=== PATIENT | female | born 1960 | race Caucasian/White ===

== ENCOUNTER 2018-02-15 08:48 | Emergency (ER) | payer OTHER ==
[2018-02-15] MEDS ORDERED: ONDANSETRON 4 MG/2 ML VIAL ONE (09:27)
[2018-02-15 09:30] LABS: Absolute Lymphocytes (CBC) 0.4 K/uL (0.7-4.9); Absolute Monocytes 0.3 K/uL (0.1-1.3); Absolute Neutrophil 4.8 K/uL (1.8-8.0); Basophils % 0.2 % (0-1.3); Eosinophils % 0.8 % (0-4.4); Hematocrit 41.7 % (36.0-45.0); Lymphocytes % 6.9 % (15.3-44.8); MCH 31.9 pg (27.0-35.0); MCV 94.1 fL (80-100); MPV 8.7 fL (7.6-11.3); Monocytes % 4.6 % (3.3-12.3); RBC Red Blood Cell Count 4.43 M/uL (3.86-4.86)
[2018-02-15 09:47] LABS: Albumin 3.6 g/dL (3.4-5.0); Bilirubin Direct 0.1 mg/dL (0-0.2); Bilirubin Total 0.7 mg/dL (0.2-1.0); Potassium 3.8 mmol/L (3.5-5.1); Protein, Total 6.9 g/dL (6.4-8.2)
[2018-02-15 10:11] LABS: Urine Blood NEGATIVE (NEG); Urine Glucose NEGATIVE (NEG); Urine Protein TRACE (NEG); Urine Specific Gravity 1.025 (1.005-1.030); Urine pH 5.5 (5.0-7.0)
--- NOTE | 2018-02-15 10:55 | RAD REPORT ---
EXAM DESCRIPTION: US - Abdomen Exam Limited - 02/15/2018 9:38 am CLINICAL HISTORY: Abdominal pain COMPARISON: None. FINDINGS: No gallstones, sludge or other abnormalities within the gallbladder lumen. There is no wal l thickening or pericholecystic fluid. No common duct stone or biliary tree dilatation identified. IMPRESSION: Normal gallbladder and biliary tree ultrasound.
--- NOTE | 2018-02-15 10:58 | RAD REPORT ---
EXAM DESCRIPTION: CT - Abdomen Pelvis W Contrast - 02/15/2018 10:41 am CLINICAL HISTORY: Abdominal pain COMPARISON: Ultrasound same date TECHNIQUE: Biphasic, helical CT imaging of the abdomen and pelvis was performed following 100 ml non -ionic IV contrast. Oral contrast was administered. All CT scans are performed using dose optimization technique as appropriate and may include automated exposure control or mA/KV adjustment according to patient size. FINDINGS: No suspicious findings in the lung bases. Very minimal hiatal hernia present. Liver shows a mild diffuse fatty infiltration with no focal liver lesions seen. No capsular nodularit y or other suspicious finding. Spleen and pancreas show no suspicious findings. Gallbladder and bilia ry tree are also without suspicious finding. Symmetric renal function is seen with no hydronephrosis or suspicious renal mass. No pyelonephritis o r acute renal parenchymal process. No urinary bladder abnormality seen. No dilated bowel loops or bowel wall thickening. No appendicitis findings present. Minimal diverticul osis without diverticulitis. No free air, free fluid or inflammatory stranding. No hernia, mass or b ulky lymphadenopathy. No adrenal abnormality. No uterine or right ovary abnormality. Left ovary demon strates a 4 centimeter thin-walled homogeneous cyst. No calcifications, septation or other suspicious characteristic. No suspicious bony findings. IMPRESSION: No acute or emergent CT abdomen or pelvis finding. Fatty infiltration noted in the liver with no focal liver lesion. A 4 centimeter left ovarian or paraovarian cyst is present. There are no suspicious characteristics o ther than size. This can be re-evaluated in 3-4 months to assess for involution or growth.
--- NOTE | 2018-02-15 12:29 | ER ---
Nurse's Notes [facility] Name: Mariah Oswald Age: 57 yrs Sex: Female : 1960 Arrival Date: 02/15/2018 Time: 08:51 Bed 5 Private MD: Zechariah Sher B Diagnosis: Unspecified abdominal pain;Nausea and vomiting Presentation: 02/15 08:58 Presenting complaint: Patient states: abd bloating, vomiting and achy joints that began ss after eating at a [employer] yesterday. Transition of care: patient was not received from another setting of care. Onset of symptoms was February 14, 2018. Risk Assessment: Do you want to hurt yourself or someone else? Patient reports no desire to harm self or others. Initial Sepsis Screen: Does the patient meet any 2 criteria? No. Patient's initial sepsis screen is negative. Does the patient have a suspected source of infection? No. Patient's initial sepsis screen is negative. Care prior to arrival: None. 08:58 Method Of Arrival: Ambulatory ss 08:58 Acuity: YVONNE 3 ss Historical: - Allergies: 09:00 Sulfa (Sulfonamide Antibiotics); ss - PMHx: 09:00 GERD; ss - PSHx: 09:00 Hernia repair; ss - Immunization history:: Adult Immunizations up to date. - Social history:: Smoking status: Patient/guardian denies using tobacco. - Family history:: not pertinent. - Ebola Screening: : Patient denies exposure to infectious person Patient denies travel to an Ebola-affected area in the 21 days before illness onset. - Hospitalizations: : No recent hospitalization is reported. Screenin:30 Abuse screen: Denies threats or abuse. Denies injuries from another. Nutritional hb screening: No deficits noted. Tuberculosis screening: No symptoms or risk factors identified. Fall Risk None identified. Assessment: 09:14 Reassessment: Pt ambulated to restroom with steady gait to give urine specimen. ss 10:07 Reassessment: Patient appears in no apparent distress at this time. Patient and/or hb family updated on plan of care and expected duration. Pain level reassessed. Patient is alert, oriented x 3, equal unlabored respirations, skin warm/dry/pink. 11:00 Reassessment: Patient appears in no apparent distress at this time. No changes from hb previously documented assessment. Patient and/or family updated on plan of care and expected duration. Pain level reassessed. Patient is alert, oriented x 3, equal unlabored respirations, skin warm/dry/pink. Vital Signs: 09:07 BP 141 / 91; Pulse 96; Resp 16; Temp 98.8(O); Pulse Ox 97% on R/A; Weight 73.48 kg; Height 5 ft. 3 in. (160.02 cm); Pain 5/10; 10:00 BP 151 / 68; Pulse 54; Resp 16; Pulse Ox 100% on R/A; Pain 0/10; hb 11:34 BP 133 / 86; Pulse 67; Resp 15; Pulse Ox 97% on R/A; hb 09:07 Body Mass Index 28.70 (73.48 kg, 160.02 cm) ED Course: 08:51 Patient arrived in ED. sb2 08:51 Zechariah Sher MD is Private Physician. sb2 08:53 Denis Pichardo MD is Attending Physician. rn 08:59 Triage completed. 09:00 Arm band placed on right ankle. 09:21 Initial lab(s) drawn, by ct, sent to lab. Flu and/or RSV swab sent to lab. Inserted dh3 saline lock: 20 gauge in right antecubital area, using aseptic technique. Blood collected. 09:30 Patient has correct armband on for positive identification. Placed in gown. Bed in low hb position. Call light in reach. Side rails up X 1. 10:02 Patient taken to ultrasound. via wheelchair. aa4 10:02 Ultrasound completed. Patient moved back from ultrasound. aa4 10:[address] mw3 10:42 CT completed. Patient tolerated procedure well. Patient moved back from CT. mw3 Administered Medications: 09:40 Drug: Zofran 4 mg Route: IVP; Site: right antecubital; hb Outcome: 12:29 Discharge ordered by . rn 12:56 Patient left the ED. eb Signatures: Karen Stallings aa4 Denis Pichardo MD MD rn Smirch, Shelby, RN RN Debi Henriquez RN RN Yoly Kingsley 3 Kenisha Frost 2 Jaylyn Van Phyllis Hamlin mw3
--- NOTE | 2018-02-15 12:30 | EDPHYS ---
Physician Documentation [facility] Name: Mariah Oswald Age: 57 yrs Sex: Female : 1960 Arrival Date: 02/15/2018 Time: 08:51 Bed 5 Private MD: Zechariah Sher B ED Physician Denis Pichardo HPI: 02/15 08:59 This 57 yrs old Female presents to ER via Unassigned with complaints of Abd rn Pain > 50 y/o, Vomiting. 08:59 The patient presents to the emergency department with nausea, vomiting, abdominal pain. rn Onset: The symptoms/episode began/occurred yesterday. Possible causes: unknown. The symptoms are aggravated by nothing. The symptoms are alleviated by nothing. Severity of symptoms: At their worst the symptoms were moderate in the emergency department the symptoms are unchanged. The patient has not experienced similar symptoms in the past. Reports at work began hurting yesterday afternoon, + mid abd pain, assoc with nausea, vomiting, and decreased appetite, + low grade fever as well as joint pains and fatigue. NO diarrhea, + abd bloating and constipation.. Historical: - Allergies: 09:00 Sulfa (Sulfonamide Antibiotics); ss - PMHx: 09:00 GERD; ss - PSHx: 09:00 Hernia repair; ss - Immunization history:: Adult Immunizations up to date. - Social history:: Smoking status: Patient/guardian denies using tobacco. - Family history:: not pertinent. - Ebola Screening: : Patient denies exposure to infectious person Patient denies travel to an Ebola-affected area in the 21 days before illness onset. - Hospitalizations: : No recent hospitalization is reported. ROS: 08:59 Constitutional: Negative for chills, and weight loss, Eyes: Negative for injury, pain, rn redness, and discharge, Neck: Negative for injury, pain, and swelling, Cardiovascular: Negative for chest pain, palpitations, and edema, Respiratory: Negative for shortness of breath, cough, wheezing, and pleuritic chest pain, Abdomen/GI: Negative for diarrhea Back: Negative for injury and pain, MS/Extremity: Negative for injury and deformity, Skin: Negative for injury, rash, and discoloration, Neuro: Negative for headache, numbness, tingling, and seizure. Exam: 08:59 Constitutional: This is a well developed, well nourished patient who is awake, alert, rn and in no acute distress. Head/Face: Normocephalic, atraumatic. Eyes: Pupils equal round and reactive to light, extra-ocular motions intact. ENT: MMM Abdomen/GI: soft, mild periumbilical tenderness, no rebound, no masses Skin: Warm, dry MS/ Extremity: Pulses equal, no cyanosis. Neurovascular intact. Full, normal range of motion. Equal circumference. Neuro: Awake and alert, GCS 15, oriented to person, place, time, and situation. Cranial nerves II-XII grossly intact. Motor strength 5/5 in all extremities. Sensory grossly intact. Cerebellar exam normal. Normal gait. Vital Signs: 09:07 BP 141 / 91; Pulse 96; Resp 16; Temp 98.8(O); Pulse Ox 97% on R/A; Weight 73.48 kg; ss Height 5 ft. 3 in. (160.02 cm); Pain 5/10; 10:00 BP 151 / 68; Pulse 54; Resp 16; Pulse Ox 100% on R/A; Pain 0/10; hb 11:34 BP 133 / 86; Pulse 67; Resp 15; Pulse Ox 97% on R/A; hb 09:07 Body Mass Index 28.70 (73.48 kg, 160.02 cm) ss MDM: 08:53 Patient medically screened. rn 12:28 Differential diagnosis: Nonspecific abd pain, gastritis, pancreatitis, appendicitis, rn diverticulitis, viral gastroenteritis, gastroenteritis. Differential diagnosis: cholecystitis. Data reviewed: vital signs, nurses notes. Data reviewed: lab test result(s), radiologic studies, CT scan, ultrasound, and as a result, I will discharge patient. Counseling: I had a detailed discussion with the patient and/or guardian regarding: the historical points, exam findings, and any diagnostic results supporting the discharge/admit diagnosis, lab results, radiology results, the need for outpatient follow up, to return to the emergency department if symptoms worsen or persist or if there are any questions or concerns that arise at home. Response to treatment: the patient's symptoms have markedly improved after treatment, and as a result, I will discharge patient. Special discussion: I discussed with the patient/guardian in detail that at this point there is no indication for admission to the hospital. It is understood, however, that if the symptoms persist or worsen the patient needs to return immediately for re-evaluation. 02/15 08:58 Order name: Basic Metabolic Panel; Complete Time: 12:23 rn 02/15 08:58 Order name: CBC with Diff; Complete Time: 12:23 rn 02/15 08:58 Order name: Hepatic Function; Complete Time: 12:23 rn 02/15 08:58 Order name: Lipase; Complete Time: 12:23 rn 02/15 08:58 Order name: Flu; Complete Time: 12:23 rn 02/15 09:48 Order name: Urine Dipstick--Ancillary (enter results) eb 02/15 08:58 Order name: CT Abd/Pelvis - W/Contrast rn 02/15 08:58 Order name: US Abdomen Limited rn 02/15 10:11 Order name: Urine Dipstick-Ancillary; Complete Time: 12:23 EDIL 02/15 10:56 Order name: US; Complete Time: 12:23 EDMS 02/15 11:00 Order name: CT; Complete Time: 12:23 EDIL 02/15 12:12 Order name: Urine Microscopic Only [facility] 02/15 12:35 Order name: Urine Microscopic Only EDIL 02/15 08:58 Order name: IV Saline Lock; Complete Time: 09:24 rn 02/15 08:58 Order name: Labs collected and sent; Complete Time: 09:24 rn Administered Medications: 09:40 Drug: Zofran 4 mg Route: IVP; Site: right antecubital; hb Disposition: 02/15/18 12:29 Discharged to Home. Impression: Unspecified abdominal pain, Nausea and vomiting. - Condition is Stable. - Discharge Instructions: Abdominal Pain, Adult, Nausea and Vomiting, Adult. - Prescriptions for Zofran ODT 4 mg Oral tablet,disintegrating - place 1 tablet by TRANSLINGUAL route every 8-10 hours As needed; 20 tablet. - Medication Reconciliation Form, Thank You Letter, Antibiotic Education, Prescription Opioid Use form. - Follow up: Private Physician; When: As needed; Reason: Recheck today's complaints, Re-evaluation by your physician. - Problem is new. - Symptoms have improved. Signatures: Dispatcher [employer] EDMS Denis Pichardo MD MD rn Smirch, Shelby, RN RN Debi Henriquez RN RN Van, Jaylyn eb Corrections: (The following items were deleted from the chart) 12:56 12:29 02/15/2018 12:29 Discharged to Home. Impression: Unspecified abdominal pain; eb Nausea and vomiting. Condition is Stable. Forms are Medication Reconciliation Form, Thank You Letter, Antibiotic Education, Prescription Opioid Use. Follow up: Private Physician; When: As needed; Reason: Recheck today's complaints, Re-evaluation by your physician. Problem is new. Symptoms have improved. rn
[2018-02-15 12:35] LABS: Urine Amorphous Sediment 2+ /HPF (NONE SEEN); Urine Bacteria 20-50 /HPF (<20); Urine Culture Reflex Order REFLEXED; Urine RBC <5 /HPF (NONE SEEN)
== END 2018-02-15 12:56 | disposition home or self-care (01) ==
LOC: ER 08:48
DX: R11.2 Nausea with vomiting, unspecified (principal); Z88.2 Allergy status to sulfonamides
CPT/HCPCS: 36415; 74177; 76705; 80048; 80076; 81003; 81015; 83690; 85025; 87086; 87088; 87804; J2405; Q9967

== ENCOUNTER 2023-08-25 18:39 | Emergency (ER) | payer OTHER ==
--- OUTSIDE RECORDS SUMMARY | 2023-08-25 18:44 | XMS REPORT | Continuity of Care Document ---
Author Name Unknown Address [address] [place] [address] [facility] Address [address] [place] [address] Care Team Providers Care Program Clinician Name Role Phone Dora Vides NP Primary Care Physician [phone] Kamaljit Delgado Attending Clinician Unavailable Melodie Boucher Attending Clinician Unavailable Doctor Unassigned, Cordes Lakes Attending Clinician U navailable TOMMY RODRIGUEZ Attending Clinician Unavailable Tommy Rodriguez MD Attending Clinician [phone] Jarod JUSTICE Attending Clinician Unavailable Jarod Tinajero Attending Clinician [phone] MELODIE BOUCHER Attending Clinician UnavailZechariah Gannon Admitting Clinician Unavailable Physician, No Primary or Family Admitting Clinic cam Unavailable TOMMY RODRIGUEZ Admitting Clinician Unavailable Jarod JUSTICE Admitting Clinician Unavailable Payers Payer Name Policy Type Policy Number Effective Date Expirati on Date Source Problems Condition Name Condition Details Condition Category Status Onset Date Resolution Date Last Treatment Date Treating Clinician Comments Source Syncope and collapse Syncope and collapse Disease Active 2022-03 00:00: 00 [facility] Senile osteoporos is Senile osteoporos is Disease Active 12-05 00:00: 00 [facility] Back pain Back pain Disease Active 12-05 00:00: 00 [facility] Personal history of other diseases of digestive system Personal history of other diseases of digestive system Disease Active 12-05 00:00: 00 [facility] Generalize d osteoarthr osis of hand Generalize d osteoarthr osis of hand Disease Active 12-05 00:00: 00 Overview: Formattin g of this note might be different from the original. ICD10 Diagnosis Term [employer] [facility] Allergies, Adverse Reactions, Alerts Allergy Name Allergy Type Status Severity Reaction(s) Onset Date Inactive Date Treating Clinician Comments Source TAPE (SURGICA L) DA Active MO BLISTERS 08-20 00:00: 00 [facility] Sulfa (Sulfona mide Antibiot ics) DA Active MO 2018-03 00:00: 00 [facility] Sulfa (Sulfona mide Antibiot ics) DA Active MO RASH 2018-03 00:00: 00 [facility] SULFA (SULFONA MIDE ANTIBIOT ICS) Drug Class Active Rash 12-05 00:00: 00 [facility] Sulfa (Sulfona mide Antibiot ics) Propensi ty to adverse reaction s Active Rash 12-05 00:00: 00 [facility] Social History Social Habit Start Date Stop Date Quantity Comments Source [facility] of Social function 2023-01-18 00:00:00 2023-01-18 00:00:00 [facility] Tobacco Comment 2023-01-18 00:00:00 2023-01-18 00:00:00 1 pack per week [facility] Cigarettes smoked current (pack per day) - Reported 2023-01-18 00:00:00 2023-01-18 00:00:00 [facility] Cigarette pack-years 2023-01-18 00:00:00 2023-01-18 00:00:00 [facility] Tobacco use and exposure 2023-01-18 00:00:00 2023-01-18 00:00:00 Smokeless tobacco non-user [facility] Alcohol intake 2023-01-18 00:00:00 2023-01-18 00:00:00 Current drinker of alcohol (finding) [facility] History of tobacco use 2012-08-04 00:00:00 Cigarette Smoker [facility] Sex Ass[birth year] At 1960 00:00:00 1960 00:00:00 [facility] Smoking Status Start Date Stop Date Source Ex-smoker 2023-01-18 00:00:00 2023-01-18 [facility] Ordered Medication Name Filled Medication Name Start Date Stop Date Current Medication? Ordering Clinician Indication Dosage Frequency Signature (SIG) Comments Components Source sulfur hexafluorid e microsphr (LUMASON) injection 5 mL 2022-03 17:30: 00 02-11 17:18 :00 No [id number] 5mL 5 mL, Intravenou s, ONCE, 1 dose, On Tue02/11/23 at 1130, Routine
member of the legislative council approving Restricted medication : REJI MONAHAN [facility] ketorolac (TORADOL) injection 15 mg 2022-03 01:15: 00 01-18 00:13 :00 No 15mg 15 mg, Slow IV Push, ONCE, 1 dose, On Tue01/17/23 at 1915, ANTONIO [facility] ipratropium -albuteroL (DUONEB) 0.5 mg-3 mg(2.5 mg base)/3 mL nebulizer solution 3 mL 2022-03 00:15: 00 01-17 23:18 :00 No 3mL 3 mL, Inhalation , ONCE, 1 dose, On Tue01/17/23 at 1815, Routine [facility] azithromyci n (ZITHROMAX) tablet 500 mg 2022-03 23:15: 00 01-17 23:19 :00 No 500mg 500 mg, Oral, ONCE, 1 dose, On Tue01/17/23 at 1715, ANTONIO
Re ason for Anti-Infec tive: Documented Infection< br>Documen isa Infection Site: Respirator y
Durat ion of Therapy: Other (see Comments) [facility] cefTRIAXone (ROCEPHIN) 1,000 mg in NaCl 0.9% (NS) 100 mL MINI-BAG 2022-03 23:15: 00 01-17 23:50 :00 No 1000mg 1,000 mg, IV Piggyback, ONCE, 1 dose, On Tue01/17/23 at 1715, Administer over 30 Minutes, 100 mL
Reas on for Anti-Infec tive: Documented Infection< br>Documen isa Infection Site: Respirator y
Durat ion of Therapy: Other (see Comments) [facility] NaCl 0.9% (NS) bolus infusion 1,000 mL 2022-03 22:30: 00 01-17 23:19 :00 No 1000mL at 999 mL/hr, 1,000 mL, IV Infusion, ONCE, 1 dose, On Tue01/17/23 at 1630, STAT [facility] azithromyci n (ZITHROMAX Z-VAN) 250 mg tablet 2022-03 00:00: 00 Yes [id number] 250mg Take 1 tablet by mouth SEE-INSTRU CTIONS. Take 500 mg day 1, then 250 mg days 2 to 5. [facility] benzonatate 200 mg capsule 2022-03 00:00: 00 Yes [id number] 200mg Take 1 capsule by mouth 3 (three) times daily as needed for Cough for up to 20 doses. [facility] VITAMIN D 2,000 UNIT ORAL CAP 2012-03 09:15: 46 Yes daily. [facility] ascorbic acid (VITAMIN C) 500 mg tablet 2012-03 09:15: 46 Yes 500mg Take 500 mg by mouth daily. [facility] Vital Signs Vital Name Observation Time Observation Value Comments S linda Systolic blood pressure 2023-01-18 20:17:00 126 mm[Hg] [facility] Diastolic blood pressure 2023-01-18 20:17:00 84 mm[Hg] [facility] Heart rate 2023-01-18 20:17:00 89 /min [facility] Respiratory rate 2023-01-18 20:10:00 18 /min [facility] Body height 2023-01-18 20:10:00 160 cm [facility] Body weight 2023-01-18 20:10:00 69.446 kg [facility] BMI 2023-01-18 20:10:00 27.12 kg/m2 [facility] Oxygen saturation in Arterial blood by Pulse oximetry 2023-01-18 20:10:00 96 /min [facility] Systolic blood pressure 2023-01-18 02:07:00 137 mm[Hg] [facility] Diastolic blood pressure 2023-01-18 02:07:00 80 mm[Hg] [facility] Heart rate 2023-01-18 02:07:00 84 /min [facility] Respiratory rate 2023-01-18 02:07:00 20 /min [facility] Oxygen saturation in Arterial blood by Pulse oximetry 2023-01-18 02:07:00 99 /min [facility] Body temperature 2023-01-18 00:21:00 37.28 Makayla [facility] Body height 2023-01-17 21:09:00 160 cm [facility] Body weight 2023-01-17 21:09:00 68.493 kg [facility] BMI 2023-01-17 21:09:00 26.75 kg/m2 [facility] Procedures Procedure Date / Time Performed Performing Clinician Source TRANSTHORACIC ECHO (TTE) COMPLETE W/ CONTRAST 2023-02-11 17:35:00 Tommy Rodriguez [facility] D-DIMER 2023-01-18 00:08:00 Jarod Justice [facility] HB ECG ROUTINE & RHYTHM STRIP 2023-01-17 22:12:32 Jarod Justice [facility] MAGNESIUM 2023-01-17 21:45:00 Jarod Justice [facility] TROPONIN I 2023-01-17 21:45:00 Jarod Justice [facility] COMP. METABOLIC PANEL (10793) 2023-01-17 21:45:00 Jarod Justice [facility] CBC WITH DIFF 2023-01-17 21:45:00 Jarod Justice [facility] URINALYSIS 2023-01-17 21:45:00 Jarod Justice [facility] RAPID INFLUENZA A/B 2023-01-17 21:45:00 Jarod Justice [facility] N-TERMINAL PRO-BNP 2023-01-17 21:45:00 Jarod Justice [facility] COVID-19 (ID NOW RAPID TESTING) 2023-01-17 21:45:00 Jarod Justice [facility] XR CHEST 1 VW 2023-01-17 21:31:55 Jarod Justice [facility] Encounters Start Date/Time End Date/Time Encounter Type Admission Type Attending Clinicians Care Facility Care Department Encounter ID Source 2019-08-23 10:00:00 Inpatient Kamaljit Becerra [facility] DAYS [id number] [facility] 2019-08-21 11:30:00 Inpatient Kamaljit Becerra [facility] OUTD [id number] [facility] 2019-06-13 00:03:00 Inpatient Melodie Gonzalez [facility] PHYT [id number] [facility] 2019-05-15 14:51:00 Inpatient Melodie Gonzalez [facility] PH[facility]T [id number] [facility] 2023-03-31 00:00:00 2023-03-31 00:00:00 Patient Secure Msg Doctor Unassigned, Cordes Lakes [facility] [id number] [facility] 2023-02-11 10:51:29 2023-02-11 23:59:00 [facility] [id number] [facility] 2023-02-11 10:51:29 2023-02-11 23:59:00 Hospital Encounter Ila [facility] [id number] [facility] 2023-01-18 14:00:00 2023-01-18 14:30:00 Office Visit Ila [facility] [id number] [facility] 2023-01-18 14:00:00 2023-01-18 14:00:00 Outpatient [facility] [id number] [facility] 2023-01-17 15:00:00 2023-01-17 20:20:00 Emergency X Jarod [email or web address] ERT [id number] [facility] 2023-01-17 15:00:00 2023-01-17 20:20:00 Emergency Jarod Justice [facility] 1..840.114 [id number] [id number] [id number] [facility] 2019-11-29 12:00:00 2019-11-29 12:00:00 Outpatient MELODIE GONZALEZ [facility] [id number] [facility] 2019-08-24 09:15:00 2019-08-24 09:15:00 Outpatient Kamaljit Delgado [facility] [id number] [facility] 2019-08-21 12:22:00 2019-08-21 12:22:00 Outpatient Kamaljit Delgado [facility] [id number] [facility] Results Test Description Test Time Test Comments Results Result Co mments Source [id number] 01:18:30* Test Item Value Reference Range Interpretation Comments D-DIMER (test code = 8801213877) 0.41 See_Comment H [Automated message] The system which generated this result transmitted reference range: <0.41 ?g/mL (FEU). The reference range was not used to interpret this result as normal/abnormal. KIRILL (test code = KIRILL) This test may be used in conjunction with a clinical pretest probability (PTP) assessment model to exclude venous thromboembolism (VTE) in patients suspected of deep venous thrombosis (DVT) and pulmonary embolism (PE) A D-Dimer value less than 0.50 ?g/ml (FEU) has a negative predicative value of 96 to 100% (95% CI)and 97 to 100% (95% CI) as an aid in the diagnosis of deep vein thrombosis (DVT) and pulmonary embolism when there is low or moderate pretest probability of PE or DVT. D-Dimer values are expressed in initial fibrinogen equivalent units (FEU)" The assay results should be used with other information, including the clinical context, in forming a diagnosis. Lab Interpretation (test code = 90535-5) Abnormal [facility] [id number] 22:55:29* Test Item Value Reference Range Interpretation Comme nts TROPONIN I (test code = 0608912452) 0.000 ng/mL <=0.034 KIRILL (test code = KIRILL) Reference (Normal) Range (defined by the 99th percentile reference limit): <= 0.034 ng/mL Note: Cardiac troponin begins to rise 3-4 hours after the onset of ischemia. Repeat in 4-6 hours if the sample was drawn within 3-4 hours of the onset of the symptom and found normal. Diagnosis of myocardial injury is made with acute changes in cTn concentrations with at least one serial sample above the 99th percentile upper reference limit (URL), taken together with the patient's clinical presentation. Biotin has been reported to cause a negative bias, interpret results relative to patient's use of biotin. Lab Interpretation (test code = 38599-5) Normal [facility] [id number] 22:53:12* Test Item Value Reference Range Interpretation Comme nts NT-proBNP (test code = 27212-2) 39 pg/mL <=125 Lab Interpretation (test cod e = 82204-0) Normal [facility] MET[facility]OLIC PANEL (79184)2023-01-17 22:44:30* Test Item Value Reference Range Interpretation Comme nts NA (test code = 4369471551) 140 mmol/L 135-145 K (test code = 8003911048) 3.8 mmol/L 3.5-5.0 CL (test code = 8699895763) 104 mmol/L 98-108 CO2 TOTAL (test code = 1255067309) 22 mmol/L 23-31 L AGAP (test code = 0616666280) 14 2-16 BUN (test code = 9179785222) 15 mg/dL 7-23 GLUCOSE (test code = 2939494921) 109 mg/dL 70-110 CREATININE (test code = 9091003942) 0.95 mg/dL 0.50-1.04 TOTAL BILI (test code = 1836620768) 0.8 mg/dL 0.1-1.1 CALCIUM (test code = 1385770417) 9.2 mg/dL 8.6-10.6 T PROTEIN (test code = 5404486156) 7.8 g/dL 6.3-8.2 ALBUMIN (test code = 7917235245) 4.6 g/dL 3.5-5.0 ALK PHOS (test code = 0634714019) 70 U/L 34-122 ALTv (test code = 1742-6) 25 U/L 5-35 AST(SGOT) (test code = 1594255487) 23 U/L 13-40 eGFR (test code = 58734-1) 67.0 mL/min/1.73m2 CKD-EPI eGFR (2020). Assuming creatinine has been stable day-to-day for at least three months, the eGFR indicates Category G2 (60 - 89 mL/min/1.73 m2) Lab Interpretation (test code = 53953-9) Abnormal [facility]-06 22:44:30* Test Item Value Reference Range Interpretation Comme nts MAGNESIUM (test code = 4230729201) 2.0 mg/dL 1.7-2.4 Lab Interpretation (test cod e = 51095-0) Normal [facility] WITH [id number] 22:34:08* Test Item Value Reference Range Interpretation Comme nts WBC (test code = 6690-2) 10.48 See_Comment [Automated messa ge] The system which generated this result transmitted reference range: 4.30 - 11.10 10*3/?L. The reference range was not used to interpret this result as normal/abnormal. RBC (test code = 789-8) 4.57 See_Comment [Automated messa ge] The system which generated this result transmitted reference range: 3.93 - 5.25 10*6/?L. The reference range was not used to interpret this result as normal/abnormal. HGB (test code = 718-7) 14.6 g/dL 11.6-15.0 HCT (test code = 4544-3) 43.3 % 35.7-45.2 MCV (test code = 787-2) 94.7 fL 80.6-95.5 MCH (test code = 785-6) 31.9 pg 25.9-32.8 MCHC (test code = 786-4) 33.7 g/dL 31.6-35.1 RDW-SD (test code = 45131-1) 43.8 fL 39.0-49.9 RDW-CV (test code = 788-0) 12.6 % 12.0-15.5 PLT (test code = 777-3) 220 See_Comment [Automated messa ge] The system which generated this result transmitted reference range: 166 - 358 10*3/?L. The reference range was not used to interpret this result as normal/abnormal. MPV (test code = 68837-5) 10.8 fL 9.5-12.9 NRBC/100 WBC (test code = 9339438839) 0.0 See_Comment [Automated [employer] ssage] The system which generated this result transmitted reference range: 0.0 - 10.0 /100 WBCs. The reference range was not used to interpret this result as normal/abnormal. NRBC x10^3 (test code = 7494468610) See_Comment [Automated messa ge] The system which generated this result transmitted reference range: 10*3/?L. The reference range was not used to interpret this result as normal/abnormal. GRAN MAT (NEUT) % (test code = 770-8) 87.8 % IMM GRAN % (test code = 0489495703) 0.40 % LYMPH % (test code = 736-9) 5.8 % MONO % (test code = 5905-5) 4.2 % EOS % (test code = 713-8) 1.6 % BASO % (test code = 706-2) 0.2 % GRAN MAT x10^3(ANC) (test code = 9321085396) 9.20 10*3/uL 1.88-7.09 H IMM GRAN x10^3 (test code = 7792318487) 0.04 10*3/uL 0.00-0.06 LYMPH x10^3 (test code = 731-0) 0.61 10*3/uL 1.32-3.29 L MONO x10^3 (test code = 742-7) 0.44 10*3/uL 0.33-0.92 EOS x10^3 (test code = 711-2) 0.17 10*3/uL 0.03-0.39 BASO x10^3 (test code = 704-7) 0.01-0.07 Lab Interpretation (test code = 05372-9) Abnormal [facility],[id number] 11:42:00 RUN DATE: 08/29/19 [facility] PAGE 1 RUN TIME: 1239 Specimen Inquiry RUN USER: INTERFACE -------- ----PATIENT: ELIAN AMARO LOC: BARB U #: [id number] AGE/SX: 59/F ROOM: RE08/24/19REG DR:Kamaljit Delgado MD : 56 BED: DIS: STATUS: [facility] TLOC: SPEC #: [id number] RECD: 08/24/19 STATUS: [facility] #: [id number] DAMIAN: 08/24/19- SUBM DR: Kamaljit Delgado MD ENTERED: 08/24/19 SP TYPE: MAYO MCFARLAND DR: ORDERED: LEVEL IV/2 CODES: [id number] - BREAST, NOS PROCEDURES: LEVEL IV (Incomplete) TISSUES: BREAST, NOS - RIGHT AND LEFT BREAST TISSUE CLINICAL HISTORY 59 year old, RIGHT breast cancer (kr) FINAL DIAGNOSIS RIGHT breast tissue, plastic repair: - dermal fibrosis and suture granuloma, consistent with scar - no breast parenchyma or malignancy identified LEFT breast tissue, plasticrepair: - dermal fibrosis and suture granuloma, consistent with scar - no breast parenchyma or malignancy identified CPT code(s): 09486 x2 ls/wpd GROSS DESCRIPTION ANATOMIC SOURCE OF TISSUE (per Requisition): 1. RIGHT breast tissue 2. LEFT breast tissue Each specimen is labeled with the patient's name and medical record number. Specimen #1 is designated "RIGHT breast tissue" and consists of a 13.0 x 2.1 x 1.0 cm portion of orantes-pink skin. The epidermal surface is wrinkled with blue ink. One half of the specimen is inked blue. One half of the specimen is inked black. Asset Protection Manager sections are submitted labeled A1 and A2. Specimen #2 is designated "LEFT breast tissue" and consists of a 7.3 x 2.2 x 0.8 cm orantes-pink portion of skin. The epidermal surface is wrinkled. One half of the specimenis inked blue. One half of the specimen is inked black. Asset Protection Manager sections are submitted labeled B1 and B2. nico 08/24/19 CONTINUED ON NEXT PAGE RUN DATE: 08/29/19 [facility] PAGE 2 RUN TIME: 1239 Specimen Inquiry RUN USER: INTERFACE SPEC #: [id number] PATIENT: LEIAN AMARO #[id number] (Continued) Signed Grace Corrales MD 08/27/19 1142 END OF REPORT Novel Coronavirus 2019 [id number] 20:07:00* Test Item Value Reference Range Interpretation Comme nts Novel Coronavirus 2019 Inh se (test code = COVNONPUI) Negative Negative Novel Coronavirus 2019 [id number] 20:07:00* Test Item Value Reference Range Interpretation Comme [facility] Novel Coronavirus 2019 Inh se (test code = COVNONPUI) Negative Negative CHEMISTRY 7 [id number] 12:25:00* Test Item Value Reference Range Interpretation Comme nts SODIUM (test code = NA) 140 mEq/L 135-145 N POTASSIUM (test code = K) 4.3 mEq/L 3.5-5.0 N CHLORIDE (test code = CL) 103 mEq/L 100-115 N CARBON DIOXIDE (test code = CO2) 32 mEq/L 22-31 H ANION GAP (test code = GAP) 9.70 10-20 L GLUCOSE (test code = GLU) 79 mg/dL 65-110 N BLOOD UREA NITROGEN (test co de = BUN) 22 mg/dL 7-18 H GLOMERULAR FILTRATION RATE ( test code = GFR) 50 ml/min >60 L CREATININE (test code = CREAT) 1.1 mg/dL 0.5-1.0 H CALCIUM (test code = CA) 9.3 mg/dL 8.4-10.2 N CBC W/AUTO [id number] 12:09:00* Test Item Value Reference Range Interpretation Comme nts WHITE BLOOD CELL (test code = WBC) 7.5 K/mm3 6.6-12.1 N RED BLOOD CELL (test code = RBC) 4.39 M/mm3 3.45-5.01 N HEMOGLOBIN (test code = HGB) 13.3 g/dL 10.7-13.9 N HEMATOCRIT (test code = HCT) 41.6 % 32.1-42.1 N MEAN CELL VOLUME (test code = MCV) 95 fL 84.1-94.8 H MEAN CELL HGB (test code = MCH) 30.3 pg 27-35 N MEAN CELL HGB CONCETRATION ( test code = MCHC) 32.0 gm/dL 32.2-34.1 L RED CELL DISTRIBUTION WIDTH (test code = RDW) 13.8 % 12.4-16.5 N PLATELET COUNT (test code = PLT) 266 K/mm3 133-385 N MEAN PLATELET VOLUME (test c ode = MPV) 10.6 fl 9.1-12.7 N NEUTROPHIL % (test code = NT%) 59.5 % 56.5-79.4 N LYMPHOCYTE % (test code = LY%) 30.5 % 14.3-34.3 N MONOCYTE % (test code = MO%) 6.8 % 5.1-10.4 N EOSINOPHIL % (test code = EO%) 2.0 % 0.1-3.0 N BASOPHIL % (test code = BA%) 0.5 % 0.1-1.0 N NEUTROPHIL # (test code = NT#) 4.5 K/mm3 LYMPHOCYTE # (test code = LY#) 2.3 K/mm3 MONOCYTE # (test code = MO#) 0.5 K/mm3 EOSINOPHIL # (test code = EO#) 0.15 K/mm3 BASOPHIL # (test code = BA#) 0.0 K/mm3 RBC MORPHOLOGY REQUIRED (neeraj t code = RBCM) NORMAL NORMAL PLATELET MORPHOLOGY REQUIRED (test code = PLTMR) NORMAL NORMAL BREAST,[id number] 11:28:00 RUN DATE: 03/13/19 [facility] PAGE 1 RUN TIME: 1146 Specimen Inquiry RUN USER: INTERFACE -------- ----PATIENT: ELIAN AMARO LOC: PAM #: [id number] AGE/SX: 58/F ROOM: [facility] RE03/05/19REG DR: Kamaljit Delgado MD : 56 BED: A DIS: 03/09/19 STATUS: DIS IN TLOC: SPEC #: [id number] RECD: 03/05/19 STATUS: [facility] #: [id number] DAMIAN: 03/05/19- [facility] DR: Melodie Boucher MD ENTERED: 03/05/19 SP TYPE: KAMILAX BARTOLO DR: ORDERED: LEVEL IV/6, FROZEN SECTION, FROZEN ADD/2 CODES: [id number] - BREAST, NOS PROCEDURES: LEVEL IV (Incomplete) FROZEN SECTION (Incomplete) FROZEN ADD (Incomplete) TISSUES: BREAST, NOS - RIGHT NIPPLE MARGIN, DOUBLE MASTECTOMY WITH LYMPH NODES CLINICAL HISTORY 58year old, ductal carcinoma in-situ, history of breast cancer (kr) FINAL DIAGNOSIS RIGHT nipple margin, excision: - benign papilloma and duct epithelial hyperplasia of the usual type - true margin - no tumor identified RIGHT breast, mastectomy: - ductal carcinoma in-situ, intermediate to high nuclear grade, solid and cribriform types, associated with comedo necrosis and several coarse microcalcifications - several foci of microinvasive carcinoma identified, Coco grade 2 - margins - no tumor identified [microinvasive carcinoma is 9.0 mm from the nearest (inferior/superficial) resection margin; ductal carcinoma in-situ is 3.0 mm from the nearest (inferior/superficial) resection margin] - lymphvascular invasion - not identified - additional foci of atypical ductal hyperplasia present in random quadrants along with numerous radial sclerosing lesions and sclerosing papillary lesions duct epithelial hyperplasia - fibrocystic change including cyst formation, apocrine metaplasia, and duct epithelial hyperplasia of the usual type - one intramammary lymph node - no tumor identified RIGHT breast lateral margin, excision: - benign breast parenchyma, no tumor identified RIGHT sentinel lymph nodes, dissection: - 5 lymph nodes, no tumor identified LEFT breast, mastectomy: CONTINUED ONNEXT PAGE RUN DATE: 03/13/19 [facility] PAGE 2 RUN TIME: 1146 Specimen Inquiry RUN USER: INTERFACE SPEC #: [id number] PATIENT: ELIAN AMARO #[id number] (Continued) FINAL DIAGNOSIS (Continued) - fibrocystic change including cyst formation, apocrine metaplasia, and duct epithelial hyperplasia of the usual type - nipple area - no pathologic alterations, no tumor identified - no atypical hyperplasia or malignancy identified LEFT breast superior margin, excision: - benign breast parenchyma, no tumor identified COMMENT: Permanent sections correlate with frozen section diagnosis. The following technical components were performed at [facility], [address] [place] [address], [address], [place] [address]. The interpretation is provided by [facility], [facility], [place] [address]. Positive and/or negative controls received from [facility] stained appropriately. RESULTS: SMM-HC (blocks A5, A6, and A7) - absent in microinvasive carcinoma areas (A5). P63 - (blocks A5, A6, and A7) - absent in microinvasive carcinoma areas (A5). Pancytokeratin (blocks A15, C1, C2, C3, C4 and C5) - negative for metastatic carcinoma. Prognostic markers - (block A4) - see below The following results are received from [facility], [place], [place] on March 11, 2019. BODY SITE: RIGHT breast - [id number] PROGNOSTIC / PREDICTIVE MARKERS Histology Image Analysis, Global IHC Quantitative Breast Panel ER: POSITIVE Tumor Stained: 95% Intensity: 3+ Internal Control: Present, positive Riaz Score: 8 PgR: POSITIVE Tumor Stained: 5% Intensity: 1+ Internal Control: Present, positive Riaz Score: 3 CONTINUED ON NEXT PAGE RUN DATE: 03/13/19 [facility] PAGE 3 RUN TIME: 1146 Specimen Inquiry RUNUSER: INTERFACE SPEC #: [id number] PATIENT: ELIAN AMARO MARIELA #[id number] (Continued) FINAL DIAGNOSIS (Continued) HER2 Breast: NEGATIVE Score: 1+ Percentage of cells with uniform Intensive Complete Membrane Stainin% KI67: LOW Tumor Stained: 5% Intensity: 3+ COMMENT: Specimen handling met the requirements specified in the latest version of the ASCO/CAP guidelines. Surgical Pathology Cancer Case Summary Protocol posting date: November 2018 INVASIVE CARCINOMA OF THE BREAST: Resection Procedure: - Total mastectomy (including nipple-sparing and skin-sparing mastectomy) Specimen Laterality: - RIGHT Tumor Site: - Lower outer quadrant - Clock position: 8 o'clock Tumor Size: - Microinvasion only (<1 mm), multifocal (up to 0.7 mm in greatest dimension) Histologic Type: - Invasive carcinoma of no special type (invasive ductal carcinoma) - Microinvasive carcinoma Histologic Grade ([place] Histologic Score): Glandular (Acinar)/Tubular Differentiation: - Score 3 Nuclear Pleomorphism: - Score 2 Mitotic Rate: - Score 1 Overall Grade: CONTINUED ON NEXT PAGE RUN DATE: 03/13/19 [facility] PAGE 4 RUN TIME: 1146 Specimen Inquiry RUN USER: INTERFACE SPEC #: [id number] PATIENT: ELIAN AMARO #[id number] (Continued) -- FINAL DIAGNOSIS (Continued) - Grade 2 (score of 6) Tumor Focality: - Multiple foci of microinvasive carcinoma Ductal Carcinoma In Situ (DCIS): - Present Size (Extent) of DCIS: Estimated size (extent) of DCIS is at least (millimeters) 16.0 mm Architectural Patterns: - Comedo - Solid Nuclear Grade: - Grade II (interm ediate) - Grade III (high) Necrosis: - Present, central (expansive "comedo" necrosis) Tumor Extension: Skin: - Skin is not present Skeletal Muscle: - No skeletal muscle is present Margins: Invasive Carcinoma Margins: - Uninvolved by invasive carcinoma Distance from closest margin (millimeters): 9.0mm Closest margin: inferior/superficial DCIS Margins: - Uninvolved by DCIS Distance from closest margin (millimeters): 4.0 mm Closest margin: inferior/superficial Regional Lymph Nodes: - Uninvolved by tumor cells Total Number of Lymph Nodes Examined: 6 Number of [place] Nodes Examined: 5 TreatmentEffect: - No known presurgical therapy CONTINUED ON NEXT PAGE RUN DATE: 03/13/19 [facility] RUN TIME: 1146 Specimen Inquiry RUN USER: INTERFACE SPEC #: [id number] PATIENT: ELIAN AMARO MARIELA #[id number] (Continued) FINAL DIAGNOSIS (Continued) Lymphovascular Invasion: - Not identified Pathologic Stage Classification (pTNM, AJCC 8th Edition): TNM Descriptors: - m (multiple foci of invasive carcinoma) Primary Tumor (pT): - pT1mi: Tumor <1 mm in greatest dimension Regional Lymph Nodes Modifier: - (sn): [place] node(s) evaluated Regional Lymph Nodes (pN): - pN0: No regional lymph node metastasis identified Distant Metastasis (pM): - Not assessed Ancillary Studies Breast Biomarker Testing Performed on the current RIGHT breast mastectomy specimen (03/05/19) Testing Performed on CPT code(s): 13487 x9, 07198 x2, 70507-75, 87580-86 x10, 04101, 10009 x2, 15457 pkjoey/ dre dt: 03/09/19 michelle/vikas 03/12/19 GROSS DESCRIPTION ANATOMIC SOURCE OF TISSUE (per Requisition): 1. RIGHT nipple margin 2, RIGHT mastectomy 3. RIGHT breast lateral margin 4. RIGHT sentinel lymph nodes 5. LEFT mastectomy 6. LEFT breast superior margin Each specimen is labeled with the patient's nameand medical record number. Specimen #1 is received without fixative in a container, labeled with the patient's name and designated "RIGHT nipple margin, clip at true margin". The specimen consists a 2.8 x 1.7 x 0.6 cm portion of yellow fatty tissue. One surface contains two surgical clips. This surface is inked black. It is sectioned and submitted in toto labeled FS1 through FS3. ghulam/dre 03/05/19 @1400 CONTINUED ON NEXT PAGE RUN DATE: 03/13/19 [facility] PAGE 6 RUN TIME: 1146 Specimen Inquiry RUN USER: INTERFACE SPEC #: [id number] PATIENT: ELIAN AMARO #[id number] (Continued)----- ------- GROSS DESCRIPTION (Continued) Specimen #2 is designated "RIGHT mastectomy, stitch at axillary tail, clip at nipple" and consists of an 865 gm skin sparing simple mastectomy specimen measuring 23 cm from medial to lateral, 23 cm from superior to inferior, and 6 cm from anterior to posterior. Two adjacent surgical clips are noted/nipple site, located 6 cm from the medial edge and 8 cm from the inferior edge ofthe specimen. Ink code: Superior one-half of the anterior surface, inferior one-half of the anterior surface including the entire nipple site - red and entire deep surface black. The tissue from the nipple area is submitted in A1. Serial sectioning of the specimen reveals off- white and yellow fibrofatty breast tissue with a fibrous tissue to adipose tissue ratio of approximately 1:4. A 1.6 x 0.9x 0.6 cm baez-orantes firm lesion is noted at the 8:00 aspect of the specimen, 1.5 cm from the closest deep inked margin and 0.8 cm from the closest anterior inferior surface. The location of this lesioncorresponds to the mammographic localization clip at 8:00. This entire lesion with surrounding tissue and closest deep and anterior inferior margins are submitted from mid toward the lateral aspect in A2 through A8. Two additional lesions are noted in the specimen. The first lesion measures 0.6 cm, 1.8 cm from the closest deep inked margin and 3 cm from the closest anterior superior margin, 6 cm from the superior edge, and located at approximately the 12:00 aspect of the specimen. This entire lesion with the closet deep and superior margins are submitted in A9 and A10. The second lesion measures 0.4 cm and is located 1.8 cm from the closest deep inked margin and 2 cm from the closest anterior surface, 3.5 cm lateral to the 12:00 lesion and is located in the inner upper quadrant of the specimen. This entire lesion with the closest inked margins is submitted in A11 and A12, A13 - tissue between the 1st and 2nd lesion, additional sections are submitted as follows: A14 - outer upper quadra nt, A15 - outer lower quadrant, A16 - inner upper quadrant and A17 - inner lower quadrant. Specimen#3 is designated "RIGHT breast lateral margin, clip at new margin" and consists of a 6 x 4 x 1.9 cmportion of yellow, fatty tissue. One surface contains two surgical clips - new margin. The new margin is inked blue. No gross lesion is noted. [employer] sections are submitted labeled B1 throughB5. Specimen #4 is designated "RIGHT sentinel lymph nodes" and consists of two pieces of yellow fatty tissue aggregating to 3 x 1.5 x 1.1 cm. It contains five lymph nodes ranging from 0.2 to 1.0 cm. The lymph nodes are submitted as follows: C1 - 1 CONTINUED ON NEXT PAGE RUN DATE: 03/13/19 [facility] PAGE 7 RUN TIME: 1146 Specimen Inquiry RUN USER: INTERFACE SPEC #: [id number] PATIENT: ELIAN AMARO #[id number] (Continued) GROSS DESCRIPTION (Continued) lymph node, C2 - 1 lymph node, C3 - 1 lymph node, C4 - 1 lymph node, and C5 - 1 lymph node. Specimen #5 is designated "LEFT mastectomy, stitch at axillary tail, clip at nipple" and consists of a 645 gm skin sparing simple mastectomy specimen measuring 18 cm from medial to lateral, 19 cm from superior to inferior, and 6 cm from anterior to posterior. The anterior surface contains two adjacent surgical clips at the nipple site, measuring 3 cm from the inferior edge and 5 cm from the medial edge of the specimen. Ink code: Superior one-half of the anterior surface - blue, inferior one-half of the anterior surface including the entire nipple area - red, and the entire deep surface black. The tissue from the nipple area is submitted in D1. Serial sectioning of the specimen reveals off- white and yellow fibrofatty breast tissue with afibrous tissue to adipose tissue ratio of approximately 1:4. No gross lesion is noted. Asset Protection Manager sections are submitted labeled D2 and D3 - inner upper quadrant, D4 and D5 - inner lower quadrant,, D6 and D7 - outer upper quadrant, D8 and D9 - outer lower quadrant. Specimen #6 is designated "LEFT breast superior margin" and consists of a 6.5 x 4.0 x 1.9 cm portion of yellow fatty tissue. One surface contains three surgical clary. This surface is inked red. No gross lesion is noted. Asset Protection Manager sections are submitted labeled E1 through E5. ghulam/dre 03/08/19 @ 1201 MICROSCOPIC DESCRIPTIONSpecimen #1 consists of breast parenchyma containing lactiferous ducts. A benign papilloma is present. No atypia or malignancy is identified. The papilloma does not involve the margin. No atypia or malignancy is identified. Specimen #2 consists of a RIGHT breast mastectomy specimen containing a 1.6cm area with multiple foci of ductal carcinoma in-situ, intermediate to high nuclear grade, solid and cribriform types, with comedo necrosis, associated with microcalcifications. Approximately five foci of microinvasive carcinoma are identified which range from 0.2 to 0.7 mm in greatest dimension, respectively. The random quadrants contain foci of atypical ductal hyperplasia. Multiple radial sclerosing lesions, foci of adenosis and sclerosing papillomas are present within the breast parenchyma.The margins of resection are free of tumor. No lymphvascular invasion is identified. The invasive tumor cells are intermediate to high nuclear grade. No mitotic figures are identified and no tubule formation is seen. Specimen #3 consists of benign breast parenchyma. No tumor is identified. Specimen#4 consists of five lymph nodes. No metastatic carcinoma is identified. CONTINUED ON NEXT PAGE RUN DATE: 03/13/19 [facility] PAGE 8 RUN TIME: 1146 Specimen Inquiry RUN USER: INTERFACE ------- -----SPEC #: [id number] PATIENT: ELIAN AMARO MARIELA #[id number] (Continued) MICROSCOPIC DESCRIPTION (Continued) Specimen #5 consists of a LEFT breast mastectomy specimen containing fibrocystic change including cyst formation, apocrine metaplasia, and ductal epithelial hyperplasia of the usual type. The margins are unremarkable. Specimen #6 consists of benign breast parenchyma. No atypical hyperplasia or malignancy is identified. The margins of resection are unremarkable. rosa dt: 03/09/19 Signed Elian Correa 03/12/19 1128 END OF REPORT - NM [id number] 15:21:00Patient Name: ELIAN AMARO MARIELA Unit No: [id number] EXAMS: CPT CODE: [id number] NM LYMPHIMAG [id number] MEDICINE SENTINEL LYMPH NODE INJECTION IN THE RIGHT BREAST 03/05/2019. CLINICAL HISTORY: Right breast cancer. [place] lymph node mapping. FINDINGS: After a time out to confirm the patient's name, date of and procedure site, the periareolar skin of the upper-outer quadrant of the right breast was prepped with Betadine and 562 uCi of ultrafiltered 99 M Technetium sulfur colloid was injected subdermally in the periareolar region at approximately 10 o'clock position. The patient tolerated the procedure and was transferred out of the room without immediate complication. IMPRESSION: 1. Successful, uncomplicated sentinel lymph node injection in the right breast. 2. Planar images show sentinel lymph node drainage localized to the right axilla. SL: [id number] Electronically Sign ed by VENKATESH Jerome on 03/07/2019 at 1521 Reported and signed by: VENKATESH Ledesma CC: Melodie Boucher MD Technologist: Blake Purvis Trnscrbd D/ (1521) [email or web address] Orig Print D/T: S: 03/07/2019 (1520) [facility] NAME: ELIAN AMARO MARIELA Rad iology Department PHYS: Melodie Cho MD [address] : 1960 AGE: 58 SEX: F [place], [place] [address] LOC: MELODY Mclean PHONE #: [phone] EXAM DATE: 03/05/2019 STATUS: ADM IN FAX #: [phone] RAD NO: [id number] Page 1 Signed ReportCBC W/AUTO [id number] 00:40:00* Test Item Value Reference Range Interpretation Comme nts WHITE BLOOD CELL (test code = WBC) 10.5 K/mm3 6.6-12.1 N RED BLOOD CELL (test code = RBC) 3.66 M/mm3 3.45-5.01 N HEMOGLOBIN (test code = HGB) 11.4 g/dL 10.7-13.9 N HEMATOCRIT (test code = HCT) 35.6 % 32.1-42.1 N MEAN CELL VOLUME (test code = MCV) 97 fL 84.1-94.8 H MEAN CELL HGB (test code = MCH) 31.1 pg 27-35 N MEAN CELL HGB CONCETRATION ( test code = MCHC) 32.0 gm/dL 32.2-34.1 L RED CELL DISTRIBUTION WIDTH (test code = RDW) 13.5 % 12.4-16.5 N PLATELET COUNT (test code = PLT) 220 K/mm3 133-385 N IMMATURE PLATELET FRACTION ( test code = IPF) 0.0 % 0.0-10.8 N MEAN PLATELET VOLUME (test c ode = MPV) 10.9 fl 9.1-12.7 N MANUAL DIFF REQUIRED (test c ode = MDIFF) YES RBC MORPHOLOGY REQUIRED (neeraj t code = RBCM) NORMAL NORMAL PLATELET MORPHOLOGY REQUIRED (test code = PLTMR) NORMAL NORMAL WBC [id number] 00:40:00* Test Item Value Reference Range Interpretation Comme nts TOTAL CELLS COUNTED (test co de = TCC) 100 #CELLS SEGMENTED NEUTROPHILS (test code = SEG) 95 % 56.5-79.4 H LYMPHOCYTE (test code = LYMPH) 4 % 20-40 L EOSINOPHIL (test code = EOS) 1 % 0-4 N PLATELET ESTIMATE (test code = PLTEST) ADEQUATE ADEQ PLATELET MORPHOLOGY (test co de = PLTMORPH) NORMAL NORMAL CHEMISTRY 7 [id number] 23:36:00* Test Item Value Reference Range Interpretation Comme nts SODIUM (test code = NA) 141 mEq/L 135-145 N POTASSIUM (test code = K) 4.7 mEq/L 3.5-5.0 N CHLORIDE (test code = CL) 107 mEq/L 100-115 N CARBON DIOXIDE (test code = CO2) 24 mEq/L 22-31 N ANION GAP (test code = GAP) 14.40 10-20 N GLUCOSE (test code = GLU) 146 mg/dL 65-110 H BLOOD UREA NITROGEN (test co de = BUN) 19 mg/dL 7-18 H GLOMERULAR FILTRATION RATE ( test code = GFR) 46 ml/min >60 L CREATININE (test code = CREAT) 1.2 mg/dL 0.5-1.0 H CALCIUM (test code = CA) 7.2 mg/dL 8.4-10.2 L [id number] 23:36:00* Test Item Value Reference Range Interpretation Comme nts MAGNESIUM (test code = MAG) 1.6 mg/dL 1.8-2.4 L CBC W/AUTO [id number] 23:19:00* Test Item Value Reference Range Interpretation Comme nts WHITE BLOOD CELL (test code = WBC) 10.5 K/mm3 6.6-12.1 N RED BLOOD CELL (test code = RBC) 3.66 M/mm3 3.45-5.01 N HEMOGLOBIN (test code = HGB) 11.4 g/dL 10.7-13.9 N HEMATOCRIT (test code = HCT) 35.6 % 32.1-42.1 N MEAN CELL VOLUME (test code = MCV) 97 fL 84.1-94.8 H MEAN CELL HGB (test code = MCH) 31.1 pg 27-35 N MEAN CELL HGB CONCETRATION ( test code = MCHC) 32.0 gm/dL 32.2-34.1 L RED CELL DISTRIBUTION WIDTH (test code = RDW) 13.5 % 12.4-16.5 N PLATELET COUNT (test code = PLT) 220 K/mm3 133-385 N IMMATURE PLATELET FRACTION ( test code = IPF) 0.0 % 0.0-10.8 N MEAN PLATELET VOLUME (test c ode = MPV) 10.9 fl 9.1-12.7 N MANUAL DIFF REQUIRED (test c ode = MDIFF) YES RBC MORPHOLOGY REQUIRED (neeraj t code = RBCM) NORMAL PLATELET MORPHOLOGY REQUIRED (test code = PLTMR) NORMAL WBC [id number] 23:19:00* Test Item Value Reference Range Interpretation Comme nts SEGMENTED NEUTROPHILS (test code = SEG) % 56.5-79 .4 LYMPHOCYTE (test code = LYMPH) % 20-40 CBC W/AUTO [id number] 23:19:00* Test Item Value Reference Range Interpretation Comme nts WHITE BLOOD CELL (test code = WBC) 10.5 K/mm3 6.6-12.1 N RED BLOOD CELL (test code = RBC) 3.66 M/mm3 3.45-5.01 N HEMOGLOBIN (test code = HGB) 11.4 g/dL 10.7-13.9 N HEMATOCRIT (test code = HCT) 35.6 % 32.1-42.1 N MEAN CELL VOLUME (test code = MCV) 97 fL 84.1-94.8 H MEAN CELL HGB (test code = MCH) 31.1 pg 27-35 N MEAN CELL HGB CONCETRATION ( test code = MCHC) 32.0 gm/dL 32.2-34.1 L RED CELL DISTRIBUTION WIDTH (test code = RDW) 13.5 % 12.4-16.5 N PLATELET COUNT (test code = PLT) 220 K/mm3 133-385 N IMMATURE PLATELET FRACTION ( test code = IPF) 0.0 % 0.0-10.8 N MEAN PLATELET VOLUME (test c ode = MPV) 10.9 fl 9.1-12.7 N MANUAL DIFF REQUIRED (test c ode = MDIFF) YES RBC MORPHOLOGY REQUIRED (neeraj t code = RBCM) NORMAL PLATELET MORPHOLOGY REQUIRED (test code = PLTMR) NORMAL WBC [id number] 23:19:00* Test Item Value Reference Range Interpretation Comme nts SEGMENTED NEUTROPHILS (test code = SEG) % 56.5-79 .4 LYMPHOCYTE (test code = LYMPH) % 20-40 COMPREHENSIVE METABOLIC [id number] 06:18:00* Test Item Value Reference Range Interpretation Comme nts SODIUM (test code = NA) 144 mEq/L 135-145 N POTASSIUM (test code = K) 5.2 mEq/L 3.5-5.0 H CHLORIDE (test code = CL) 106 mEq/L 100-115 N CARBON DIOXIDE (test code = CO2) 29 mEq/L 22-31 N ANION GAP (test code = GAP) 13.90 10-20 N GLUCOSE (test code = GLU) 113 mg/dL 65-110 H BLOOD UREA NITROGEN (test co de = BUN) 24 mg/dL 7-18 H GLOMERULAR FILTRATION RATE ( test code = GFR) 46 ml/min >60 L CREATININE (test code = CREAT) 1.2 mg/dL 0.5-1.0 H TOTAL PROTEIN (test code = PROT) 6.7 gm/dL 6.3-8.2 N ALBUMIN (test code = ALB) 3.6 gm/dL 3.4-4.8 N CALCIUM (test code = CA) 9.3 mg/dL 8.4-10.2 N BILIRUBIN TOTAL (test code = BILT) 0.4 mg/dL 0.2-1.0 N SGOT/AST (test code = AST) 15 units/L 15-37 N SGPT/ALT (test code = ALT) 41 units/L 12-78 N ALKALINE PHOSPHATASE TOTAL ( test code = ALKP) 55 units/L 46-116 N CBC W/AUTO [id number] 11:14:00* Test Item Value Reference Range Interpretation Comme nts WHITE BLOOD CELL (test code = WBC) 7.7 K/mm3 6.6-12.1 N RED BLOOD CELL (test code = RBC) 4.50 M/mm3 3.45-5.01 N HEMOGLOBIN (test code = HGB) 13.5 g/dL 10.7-13.9 N HEMATOCRIT (test code = HCT) 43.0 % 32.1-42.1 H MEAN CELL VOLUME (test code = MCV) 96 fL 84.1-94.8 H MEAN CELL HGB (test code = MCH) 30.0 pg 27-35 N MEAN CELL HGB CONCETRATION ( test code = MCHC) 31.4 gm/dL 32.2-34.1 L RED CELL DISTRIBUTION WIDTH (test code = RDW) 13.6 % 12.4-16.5 N PLATELET COUNT (test code = PLT) 281 K/mm3 133-385 N IMMATURE PLATELET FRACTION ( test code = IPF) 0.0 % 0.0-10.8 N MEAN PLATELET VOLUME (test c ode = MPV) 10.7 fl 9.1-12.7 N NEUTROPHIL % (test code = NT%) 53.8 % 56.5-79.4 L LYMPHOCYTE % (test code = LY%) 35.3 % 14.3-34.3 H MONOCYTE % (test code = MO%) 7.1 % 5.1-10.4 N EOSINOPHIL % (test code = EO%) 2.6 % 0.1-3.0 N BASOPHIL % (test code = BA%) 0.5 % 0.1-1.0 N NEUTROPHIL # (test code = NT#) 4.1 K/mm3 LYMPHOCYTE # (test code = LY#) 2.7 K/mm3 MONOCYTE # (test code = MO#) 0.5 K/mm3 EOSINOPHIL # (test code = EO#) 0.20 K/mm3 BASOPHIL # (test code = BA#) 0.0 K/mm3 RBC MORPHOLOGY REQUIRED (neeraj t code = RBCM) NORMAL NORMAL PLATELET MORPHOLOGY REQUIRED (test code = PLTMR) NORMAL NORMAL URINALYSIS [id number] 11:10:00* Test Item Value Reference Range Interpretation Comme nts UA COLOR (test code = COLU) STRAW YELLOW UA APPEARANCE (test code = APPU) CLEAR CLEAR UA GLUCOSE DIPSTICK (test co de = DGLUU) NEGATIVE NEG UA BILIRUBIN DIPSTICK (test code = BILU) NEGATIVE NEG UA KETONE DIPSTICK (test cod e = KETU) NEGATIVE NEG UA SPECIFIC GRAVITY (test co de = SGU) 1.006 1.001-1.035 N UA BLOOD DIPSTICK (test code = LEYLA) NEG NEG UA PH DIPSTICK (test code = PRADIP) 6.0 5-9 UA PROTEIN DIPSTICK (test co de = PROU) NEGATIVE NEG UA UROBILINIOGEN DIPSTICK (test code = URO) NEGATIVE mg/dL NEG UA NITRITE DIPSTICK (test co de = ZAINA) NEG NEG UA LEUKOCYTE ESTERASE DIPSTI CK (test code = LEUU) NEG NEG UA WBC (test code = WBCU) 0-2 #/hpf NONE SEEN UA RBC (test code = RBCU) 0-2 #/hpf NONE SEEN UA EPITHELIAL CELLS (test co de = EPIU) RARE #/HPF RARE-FEW UA MUCUS (test code = MUCU) RARE NONE SEEN URINE SAMPLE: CLEAN CATCHELVER,[id number] 14:11:00 RUN DATE: 01/08/19 [facility] PAGE 1 RUN TIME: 1733 Specimen Inquiry RUN USER: INTERFACE --------- ---PATIENT: ELIAN AMARO MARIELA LOC: [facility] U #: [id number] AGE/SX: 58/F ROOM: RE01/03/19REG DR:Beckie Parks MD : 56 BED: DIS: STATUS: PRE REF TLOC: SPEC #: [id number] RECD: 01/03/19 STATUS: LORI REQ #: [id number] DAMIAN: 01/03/19- SUBM DR: Beckie Parks MD ENTERED: 01/04/19 SPTYPE: BREABX OTHR DR: Shannon Crabtree MD ORDERED: LEVEL IV CODES: [id number] - BREAST, NOS COPIES TO: Beckie Parsk MD [address] [facility] [address] [place] [address] [place] [address] [place] [address] PROCEDURES: LEVEL IV (Incomplete) TISSUES: BREAST, NOS - RIGHT BREAST BIOPSY CLINICAL HISTORY 58 year old, asymmetry with calc, susp for malignancy (wpd) NOTE: RIGHT breast 8:00: Biopsy: 01/03/19 @ 1343 In formalin: 01/03/19 @ 1345 Out of formalin: 01/03/19 @ 1825 FINAL DIAGNOSIS RIGHT breast at 8:00, core biopsy: - 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 The interpretation is provided by [facility], [address] [place] [address]. Positive and/or negative controlsreceived from [facility] [employer] stained appropriately. CONTINUED ON NEXT PAGE RUN DATE: 01/08/19 [facility] PAGE 2 RUN TIME: 1733 Specimen Inquiry RUN USER: INTERFACE SPEC #: [id number] PATIENT: ELIAN AMARO #[id number] (Continued) FINAL DIAGNOSIS (Continued) RESULTS: SMM-HC (block A1) - positive, surrounding tumor nests. P63 (block A1) - positive, surrounding tumor nests. CPT code(s): 36705, 38489-00, 30244-11 pkg/kr dt: 01/05/19 pkg/wpd 01/08/19 GROSS DESCRIPTION ANATOMIC SOURCE OF TISSUE (per Requisition): RIGHT breast 8:00 The specimen is received in a formalin-filled container, labeled with the patient's name and designated "RIGHT breast 8:00". The specimen consists of three orantes-pink andyellow, fibrofatty, cylindrical soft tissues, 0.7 - 2.0 cm in length, submitted in toto as A1. jm/wpd 01/04/19 @ 1105 MICROSCOPIC DESCRIPTION The following results are received from [facility], [place], [place] on January 08, 2019. BODY SITE: RIGHT breast - [id number] HISTOLOGY IMAGE ANALYSIS, GLOBAL ER: POSITIVE Tumor Stained: 96% Intensity: 3+ Internal Control: Present, positive PgR: POSITIVE Tumor Stained: 4% Intensity: 2+ Internal Control: Present, positive COMMENT: Specimen handling met the requirements specified in the latest version of the ASCO/CAP guidelines. I acknowledge the above findings. Elian Correa M.D., Pathologist/ksr January 08, 2019 @ 0743 CONTINUED ON NEXT PAGE RUN DATE: 01/08/19 [facility] PAGE 3 RUN TIME: 1733 Specimen Inquiry RUN USER: INTERFACE SPEC #: [id number] PATIENT: ELIAN AMARO MARIELA #[id number] (Continued) Signed Elian Correa 01/08/19 1411 END OF REPORT Notes Date/Time Note Provider Source 2019-08-25 15:25:00 [id number] w0B6JKh3KDfKF9c/aesgary/nHPQBdWM rAkPTa6fXun1NOreg2QDCK/XYdPISyr5Nm3439-43-80P71:2 [id number] [facility] [place] [address] PATIENT NAME: ELIAN AMARO ADMIT DATE: 08/24/19ACCOUNT NO: [id number] ROOM NO: AGE: 59 SEX: F ADMITTING PHYSICIAN: ATTENDING PHYSICIAN: Kamaljit Delgado MD OPERATION DATE: 08/24/2019 PREOPERATIVE DIAGNOSES:1. Bilateral acquired absence of the breast.2. Personal history of breast cancer.3. History of bilateral deep inferior epigastric supervisor heavy equipment flapreconstruction.4. Asymmetry of breast reconstruction.5. Deformity of breast reconstruction.6. Encounter for reconstruction after mastectomy. POSTOPERATIVE DIAGNOSES:1. Bilateral acquired absence of the breast.2. Personal history of breast cancer.3. History of bilateral deep inferior epigastric supervisor heavy equipment flapreconstruction.4. Asymmetry of breast reconstruction.5. Deformity of breast reconstruction.6. Encounter for reconstruction after mastectomy. PROCEDURES PERFORMED:1. Revision of right breast reconstruction, CPT 50921.2. Revision of left breast reconstruction, CPT 37032.3. Autologous fat grafting to bilateral breasts, 500 mL total, CPT 52105, [id number]. SURGEON: Kamaljit Delgado MD ULTRASOUND COORDINATOR: Orly Knowles CSA. ANESTHESIA: General. INDICATIONS FOR PROCEDURE: Ms. Amaro is a 59-year-old woman, who is wellknown to me, who underwent a previous breast reconstruction in immediate settingafter mastectomies with bilateral HAYDEN flaps. She has healed well from this,but she does have some of the typical postoperative asymmetry and deformityissues, mainly with superior step-off deformities on each side as well as slightasymmetry between the size and some just general differences in projection. Shehas some redness of her flap skin as well lateral to the nipple where her radialincisions were performed and along with this has slightly more amount of ptosison the right. Additionally, on the right axilla and bra roll area, she has somedeflation due to the mastectomy and a general absence of fat along withhypersensitivity and some excess skin due to deflation in that area as well. I PATIENT NAME: ELIAN AMARO saw the patient and obviously identified all these issues, but overall what sheneeds is resection of her flap skin bilaterally with an extension of that radialincision to excise some of the scar itself and also more extensive version onthe right to help lift that lateral skin as well to take away some of thelaxity. Secondly, she needs fat grafting of bilateral step off deformities aswell as up on to the superior medial aspect of the chest to enhance theprojection and fullness in that region and overall she needs more fat in theright breast as this appears to be just slightly smaller. I talked to thepatient about the risks of the procedure such as infection, bleeding, hematoma,continued asymmetry and deformity and further need for revision. She has afairly significant step-off deformity, so I am not sure I can fully correct thatstep-off deformity in one setting, but the future fat grafting if needed shouldbe a smaller version of this. Overall, I think she is very happy with the size,but could be used to more fullness. DESCRIPTION OF PROCEDURE IN DETAIL: After informed consent was obtained, thepatient was brought to the operating room and placed supine on the operatingtable. Anesthesia was induced. Timeout procedure was done and she was preppedand draped in normal sterile fashion. I began by instilling tumescent fluidinto the abdomen and flanks as well as the medial and lateral thighs to a smalldegree, so that I had enough fat to inject. Allowed this tumescent fluid to setin place and then I performed suction-assisted lipectomy using a 4-mm basket tipcannula in those regions to suction and harvest fat. Fat was collected in theRevolve fat grafting system and prepared for injection on the back table. While fat was being processed on the back table, I began the right breastrevision. I instilled some tumescent fluid in this area to help with hemostasisand then I marked the markings for the excision in an elliptical manner of notonly the breast skin, but a small degree of the breast skin extending outlaterally on to the chest wall to help with some of this tissue that was lax. So, I made an incision with a knife, dissected and created a full-thicknessdefect. I then advanced my superior and inferior breast flaps by underminingthese with electrocautery and brought these flaps together to advance both ofthem towards each other and packed them into place initially closing withseveral layers with 2-0 and 3-0 Monocryl suture. At this point, I then turned my attention to the left breast and had a similartype of marking on the left breast, although it did not have to extend quite inthis part of the left chest. So, I made that incision again in a full-thicknessmanner, creating defect, elevated my superior and inferior flaps and thenbrought them together and sutured them together with 2-0 and 3-0 Monocryl. Next, at this point now the fat was ready for injection. I injected fat intothe right breast and then the left breast, injecting 300 mL into the rightbreast, mostly staying in the superior medial and superior aspect to help withthe step-off deformity in the transition from the chest wall to the flap. I didthat using a Arana cannula. I also injected some fat generally into the rightbreast flap itself to help increase the size and I also injected some fatlaterally in the area that was somewhat deflated due to that deficiency of fatas mentioned before to help fill this in and to help relieve the step-offdeformity and also to help hopefully adding some fat and to treat herhypersensitivity in that area. I did the same thing on the left breast, injecting 200 mL of fat total mostlyinto the superior medial aspect, but also a small amount into the flap itself, PATIENT NAME: ELIAN AMARO MARIELA although not as much into the flap because the left flap was larger. Once I wasdone, I closed those sites with a 5-0 plain gut suture. Closed the lipoincisions with 3-0 Monocryl and 5-0 plain gut and placed a Dermabond dressingonto the incisions for the breast and this concluded the procedure. DRAINS: None. COMPLICATIONS: None. SPECIMENS: Right and left breast skin. TOTAL LIPOASPIRATE: 2.5 liters. FAT INJECTED: 300 mL to right breast and 200 mL to left breast. ESTIMATED BLOOD LOSS: 20 mL. COMPLICATIONS: None. DISPOSITION: To PACU in stable condition. Dictated By: Kamaljit Delgado MD WT: OP:F.HIM/LINCA.01/NTSDD: 08/25/2019 15:25:36DT: 08/25/2019 17:31:08Conf#: [id number]/DID#: [id number] Authenticated by Kamaljit Delgado MD On 10/21/2019 01:06:18 PM at 1306 PATIENT NAME: ELIAN AMARO xpeywp9659-36-60Y13:31:00F.[id number] lable for patient mhfrHSMNSBIMIMOSSJ0896-73-87U62:06:49 [facility] 2019-03-09 16:42:00 [id number] tguBO5p4GJDlc7U0qxPB3pZ1sH43h xo+66H+W3ePwna8Y8Bs1+4O5WQtkehhoG51992-13-87U59:4 2:00 [facility] ([facility])Discharge SummaryREPORT#:[id number] REPORT STATUS: SignedDATE:03/09/19 TIME: 1641 PATIENT: ELIAN AMARO UNIT #: [id number]#: [id number] [facility] AGE: 58 SEX: F ATTEND: Kamaljit Delgado MDADM AUTHOR: Lisa Smith TACTICAL INTELLIGENCE OFFICER * ALL edits or amendments must be made on the electronic/computer document * PCP PCPPCP:PCP: No Primary or Family Physician Discharge to: home General InformationDate of admission:Observation Start Date: Date of admission: 03/05/19 Date of discharge: 03/09/19Hospital course:s/p hayden pod #4, has progressed wel. Right flap still has some evidence of ischemia to nipple and upper quadrant but has improved significantly, cap refillis delayed in comparison to the left breast, however is <3 seconds. Small area of discoloration about 3x3 irregular shape light brown in color ruq. Left flap shape looks good and has great symmetry. Triphasic doppler signals bilaterally, good waveform, left flap external doppler is more quiet than the right but has improved daily, left breast color is appropriate to race. Incisions c/d/i well approximated, fabricio x5 compressed to bulb suction with serosanguineous drainage. Abd binder in use, umbilicus perfused. Med Rec Med RecDischarge meds:Stop taking the following medications:[ORTHO CHARLEY] levOCARNitine (L-CARNITINE) 250 MG CAP [TRACE MINERALS] [UBIQUINOL 100MG] Continue taking these medications:PANTOPRAZOLE DR (PROTONIX) 40 MG TAB.DR 40 MILLIGRAM ORAL DAILY. FLUTICASONE PROPIONATE (FLONASE 50 MCG/ACT NASAL) 50 MCG/ACTUATION SPRAY 1 SPRAY NASAL DAILY. ROSUVASTATIN (CRESTOR) 5 MG TAB 5 MILLIGRAM ORAL DAILY. EZETIMIBE (ZETIA) 10 MG TAB 10 MILLIGRAM ORAL DAILY. LORATADINE (CLARITIN) 10 MG TAB 10 MILLIGRAM ORAL DAILY. FEXOFENADINE (HOWARD ALLERGY) 180 MG TAB 180 MILLIGRAM ORAL DAILY. CHOLECALCIFEROL (VITAMIN D3) (VITAMIN D3) 50,000 UNIT CAP 50,000 UNIT ORAL EVERY 7 DAYS. VITAMIN B COMPLEX/VIT C (NEPHRO-VANIA) 1 MG-60 MG-300 MCG TAB 1 TABLET ORAL DAILY. ObjectiveVS/I OLast Documented: Result Date Time Pulse Ox 97 03/09 1625 B/P 138/84 03/09 1625 B/P Mean 101.8 03/09 1625 Temp 98.1 03/09 1625 Pulse 76 03/09 1625 Resp 18 03/09 1625 O2 Delivery Nasal cannula 03/07 0800 O2 Flow Rate 2.442617 03/07 0800 FiO2 100 03/05 2230 24 hour I O ending at 0700: 03/09 0700 03/08 1900 Intake Total 1080.00 1420.00 Output Total 1090 3045 Balance -10.00 -1625.00 Intake, IV 600.00 600.00 Intake, Oral 480 820 Number 1 Bowel Movements Number Voids 7 Output, 140 255 Drainage Output, Stool 0 Output, Urine 950 2790 Patient Weight Weight (lb): 166Weight (oz): 14.24Weight (kg): 75.700 General appearance: alert, awake, oriented, no acute distress, pleasant, conversational, mental status normal, no respiratory distressBreast: no dischargeCardiovascular: regular rate rhythmRespiratory: no distressGI: softExtremities: moves all, no edema-all extremitiesMusculoskeletal: full range of motionNeuro/WASTEWATER PLANT CIVIL ENGINEER: alert, oriented X 3 Considered stroke alert: noSkin: dry, intact, warm, abnormal color (right breast)Wound/incision: Location:sanna breast, fabricio sites and transverse abdomen Site Condition: dressing clean dry, incision intact, wound clean dry, no changes in wound, no drainage ResultsResults: vital signs stable, current med profile rev'd Discharge InstructionsDiet: regularOral fluid restriction: NoWeight monitoring: Not RequiredActivity: as tolerated, no bending, no lifting, no twisting, non-strenuous, walkWound/dressing care: OK TO SHOWER today NO APPLICATION OF OIL OR POWDER ON THE INCISION SITE dry entirely before reapplying abdominal garment and bra CHECK OF OOZING OR LEAKING OF DISCHARGE FROM THE INCISIONAL SITENotify provider of these s/s:excessive bleeding into drains or from incision sites, any incision site opening, adverse medication reaction, rash, fever >101, excessive redness or warmth to surgical sites, any dark discoloration to breast. Additional instructions:call office with any questions, calls go to the answering service if overnight or over the weekend [phone]: with family, with patientReturn to work/school: NoDischarge management: less than 30 mins, face to face encounterTime spent: Time spent with patient (minutes): 29 Follow-up AppointmentsAttending Physician: Attending Physician: Kamaljit Delgado MD Appt. date: 03/20/19 (11am) Follow up: In 1-2 weeks AttestationsAttestation needed: supervising physician Physician AttestationAgree w/findings plan:Agree with the findings and plan as documented by [insert AMRIT name];* my personal evaluation is[ ] at 1702 RPT #:[id number] OF REPORT DSDischarge zbbqdpy4197-15-42Z75:42:00F.[id number] ailable for patient zeirSSYWYGOVASRZUI0520-82-24R99:02:50 [facility] 2019-03-09 16:42:00 [id number] DjSILvcX3Drerfg3I1mHTz+M60IqP +SFAAgfNTcarXH5D64t8QU4SmoSCTHYGMY5956-92-23S80:4 2:00 [facility] ([facility])Discharge SummaryREPORT#:[id number] REPORT STATUS: SignedDATE:03/09/19 TIME: 1641 PATIENT: ELIAN AMARO UNIT #: [id number]#: [id number] ROOM[facility]ED: [facility]ADOB: [birth year] AGE: 58 SEX: F ATTEND: Kamaljit Delgado MDA AUTHOR: Lisa Smith TACTICAL INTELLIGENCE OFFICER * ALL edits or amendments must be made on the electronic/computer document * PCP PCPPCP:PCP: No Primary or Family Physician Discharge to: home General InformationDate of admission:Observation Start Date: Date of admission: 03/05/19 Date of discharge: 03/09/19Hospital course:s/p hayden pod #4, has progressed wel. Right flap still has some evidence of ischemia to nipple and upper quadrant but has improved significantly, cap refillis delayed in comparison to the left breast, however is <3 seconds. Small area of discoloration about 3x3 irregular shape light brown in color ruq. Left flap shape looks good and has great symmetry. Triphasic doppler signals bilaterally, good waveform, left flap external doppler is more quiet than the right but has improved daily, left breast color is appropriate to race. Incisions c/d/i well approximated, fabricio x5 compressed to bulb suction with serosanguineous drainage. Abd binder in use, umbilicus perfused. Med Rec Med RecDischarge meds:Stop taking the following medications:[ORTHO CHARLEY] levOCARNitine (L-CARNITINE) 250 MG CAP [TRACE MINERALS] [UBIQUINOL 100MG] Continue taking these medications:PANTOPRAZOLE DR (PROTONIX) 40 MG TAB.DR 40 MILLIGRAM ORAL DAILY. FLUTICASONE PROPIONATE (FLONASE 50 MCG/ACT NASAL) 50 MCG/ACTUATION SPRAY 1 SPRAY NASAL DAILY. ROSUVASTATIN (CRESTOR) 5 MG TAB 5 MILLIGRAM ORAL DAILY. EZETIMIBE (ZETIA) 10 MG TAB 10 MILLIGRAM ORAL DAILY. LORATADINE (CLARITIN) 10 MG TAB 10 MILLIGRAM ORAL DAILY. FEXOFENADINE (HOWARD ALLERGY) 180 MG TAB 180 MILLIGRAM ORAL DAILY. CHOLECALCIFEROL (VITAMIN D3) (VITAMIN D3) 50,000 UNIT CAP 50,000 UNIT ORAL EVERY 7 DAYS. VITAMIN B COMPLEX/VIT C (NEPHRO-VANIA) 1 MG-60 MG-300 MCG TAB 1 TABLET ORAL DAILY. ObjectiveVS/I OLast Documented: Result Date Time Pulse Ox 97 03/09 162 B/P 138/84 03/09 1625 B/P Mean 101.8 03/09 1625 Temp 98.1 03/09 1625 Pulse 76 03/09 1625 Resp 18 03/09 1625 O2 Delivery Nasal cannula 03/07 0800 O2 Flow Rate 2.049606 03/07 0800 FiO2 100 03/05 2230 24 hour I O ending at 0700: 03/09 0700 03/08 1900 Intake Total 1080.00 1420.00 Output Total 1090 3045 Balance -10.00 -1625.00 Intake, IV 600.00 600.00 Intake, Oral 480 820 Number 1 Bowel Movements Number Voids 7 Output, 140 255 Drainage Output, Stool 0 Output, Urine 950 2790 Patient Weight Weight (lb): 166Weight (oz): 14.24Weight (kg): 75.700 General appearance: alert, awake, oriented, no acute distress, pleasant, conversational, mental status normal, no respiratory distressBreast: no dischargeCardiovascular: regular rate rhythmRespiratory: no distressGI: softExtremities: moves all, no edema-all extremitiesMusculoskeletal: full range of motionNeuro/WASTEWATER PLANT CIVIL ENGINEER: alert, oriented X 3 Considered stroke alert: noSkin: dry, intact, warm, abnormal color (right breast)Wound/incision: Location:sanna breast, fabricio sites and transverse abdomen Site Condition: dressing clean dry, incision intact, wound clean dry, no changes in wound, no drainage ResultsResults: vital signs stable, current med profile rev'd Discharge InstructionsDiet: regularOral fluid restriction: NoWeight monitoring: Not RequiredActivity: as tolerated, no bending, no lifting, no twisting, non-strenuous, walkWound/dressing care: OK TO SHOWER today NO APPLICATION OF OIL OR POWDER ON THE INCISION SITE dry entirely before reapplying abdominal garment and bra CHECK OF OOZING OR LEAKING OF DISCHARGE FROM THE INCISIONAL SITENotify provider of these s/s:excessive bleeding into drains or from incision sites, any incision site opening, adverse medication reaction, rash, fever >101, excessive redness or warmth to surgical sites, any dark discoloration to breast. Additional instructions:call office with any questions, calls go to the answering service if overnight or over the weekend [phone]: with family, with patientReturn to work/school: NoDischarge management: less than 30 mins, face to face encounterTime spent: Time spent with patient (minutes): 29 Follow-up AppointmentsAttending Physician: Attending Physician: Kamaljit Delgado MD Appt. date: 03/20/19 (11am) Follow up: In 1-2 weeks AttestationsAttestation needed: supervising physician Physician AttestationAgree w/findings plan:Agree with the findings and plan as documented by [insert AMRIT name];* my personal evaluation is[ ] at 1702 at 2866 RPT #:[id number] OF REPORT DSDischarge hjzyfuz6055-68-71L52:42:00F.[id number] ailable for patient pvcjNLJHGTAGISUFCB2942-00-66K67:56:38 [facility] 2019-03-08 22:38:00 OVqsdyjpiwj86757617v HpQk3bnDNuMMnThK6LGS4Fds81xAt nPqbvU9+/0Luajf0nFyC5XtDwKaqDBHTpf9786-86-91Z72:3 8:[id number] [facility] [place] [address] PATIENT NAME: ELIAN AMARO ADMIT DATE: 03/05/19ACCOUNT NO: [id number] ROOM NO: F.3 AGE: 58 SEX: F ADMITTING PHYSICIAN: Kamaljit Delgado MD ATTENDING PHYSICIAN: Kamaljit Delgado MD OPERATION DATE: 03/05/2019 PREOPERATIVE DIAGNOSIS: Acquired bilateral absence of breast. POSTOPERATIVE DIAGNOSIS: Acquired bilateral absence of breast. PROCEDURES PERFORMED:1. Immediate reconstruction of the left breast using free HAYDEN supervisor heavy equipment flap.2. Reconstruction of the anatomic footprint with acellular dermal matrix.3. Exploration of left flap superficial vessel system.4. Intraoperative immunofluorescence angiographies using the spy. SURGEON: Danii Jones MD. ULTRASOUND COORDINATOR: Kamaljit Delgado MD. ANESTHESIA: General endotracheal anesthesia. INDICATIONS FOR PROCEDURE: Ms. Amaro is a 58-year-old female undergoingbilateral mastectomies by Dr. Boucher. She was found to be a good candidate forimmediate autologous breast reconstruction. The patient was seen in 's clinic. All questions were answered and consents were obtained. PROCEDURE IN DETAIL: The patient was taken to the operating room, prepped anddraped in the normal sterile fashion. Dr. Boucher performed her bilateralmastectomies. Please see her operative note for full details. While Dr. Boucher was performing her portion of the procedure, I began thedissection of the left breast flap in order to help expedite the patient'ssurgery. Regarding the left flap, I made my incision down, dissected out thesuperficial inferior vein. Deeper and more lateral to this, I also identified asecond inferior artery with the vein, dissected this out for severalcentimeters. This required extra working time and plan in the operating room,in case I needed this for flap salvage. After this was done, I completed my dissection through the fascia and thenraised up the lateral edge of the flap to the lateral row perforators. I foundthree lateral row perforators in succession and dissected these out from theflap then down to the fascia in continuity with the pedicle. After dissectionof the pedicle down to the takeoff of the external iliac vessel system, I wasable to spare the muscle on the side. Once this flap was ready, I handed theflap off to Dr. Delgado who performed the microanastomosis. After I had donethis, I then closed the abdominal incision by placing a small lightweight PATIENT NAME: ELIAN AMARO MARIELA propylene mesh underneath the rectus muscle and then closed the rectus muscleusing 2-0 Vicryl suture. I used a #1 PDS to close the fascia in an interruptedmanner followed by running 2-0 Prolene suture for fascial closure. The flap washooked up by Dr. Delgado. Please see his operative note for full details. Regarding the left chest, I irrigated the left chest and obtained hemostasis andthen assessed my inframammary fold and lateral breast footprint, which wasviolated by the mastectomy. I brought in a piece of AlloDerm, which I hadsoaked in saline and chlorhexidine water bath. After I brought this into thefield and sutured in and anchored into the IMF fold, the lateral breastfootprint was found to hold the flap in good position. Using a 2-0 Monocrylsuture in an interrupted fashion, I reconstructed these areas. After finished his dissection of the right flap, he handed this off to me forthe left breast reconstruction. I had already dissected out the internalmammary artery and vein, exposed and by resecting a portion of the ribcartilage. I performed microanastomosis using 8-0 nylon suture in aninterrupted fashion as well as a 2.5-mm flow contract mail carrier. Once the flap was hookedup, I had good triphasic Doppler signal. Again, the flap demonstrated goodblood flow throughout the remainder of the case. Regarding the inset,de-epithelialization was performed and sutured to the AlloDerm for the closure. This was done using 2-0 Vicryl. Intraoperative immunofluorescence angiography was brought in from the spy andboth flaps were hooked up initially and showed good flow to the left flap andthe right flap. Once both flaps were in position, we flexed the patient's bedand advanced the abdominal wall flap distally. Using 2-0 Vicryl in Raven'sfascia followed by 2-0 and 3-0 Monocryl in the skin delivering the umbilicus tothe new position after marking. This was sutured in place with 2-0 Vicryl and3-0 Monocryl followed by 5-0 plain gut suture. The abdominal incision wascovered with Prineo. The umbilicus was covered with Xeroform and Tegaderm. Thebreasts were covered in a surgical bra and this concluded the procedure. DRAINS: Two 15-Andorran drains in the left breast. Two 15-Andorran drains in theright breast. Dictated By: Danii Jones MD WT: OP:F.YANELIS/DONAL/NTSDD: 03/08/2019 22:38:21DT: 03/08/2019 23:13:00Conf#: [id number]/DID#: [id number] Authenticated by Danii Jones MD On 03/09/2019 12:42:18 PM at 1242 PATIENT NAME: ELIAN AMARO nnuuob8085-64-91D63:13:00F.QQF85310080-8073UMGtpq lable for patient uzmkFHEZUDJQWPIIIB1873-22-74X10:42:47 [facility] 2019-03-08 12:53:00 NIrhxwbpdlx92485881n CezdWpcAwAb2Une5qDF1VEPRXOmAd LQmFsdmDdfEXb0RQ6ieH4aHFMSsD780XIf0467-37-34M48:5 3:[id number] [facility] [place] [address] PATIENT NAME: ELIAN AMARO ADMIT DATE: 03/05/19ACCOUNT NO: [id number] ROOM NO: F.IC3 AGE: 58 SEX: F ADMITTING PHYSICIAN: Kamaljit Delgado MD ATTENDING PHYSICIAN: Kamaljit Delgado MD OPERATION DATE: 03/05/2019 SURGEON: Kamaljit Delgado MD ULTRASOUND COORDINATOR: Danii Jones MD SECOND ULTRASOUND COORDINATOR: Orly Knowles CSA ANESTHESIA: General. PREOPERATIVE DIAGNOSES: 1. 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 2. Encounter for reconstruction after mastectomy. 3. Bilateral acquired absence of the breast and nipple. 4. High risk for malignant neoplasm of the breast. 5. Family history of breast cancer. POSTOPERATIVE DIAGNOSES: 1. 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 2. Encounter for reconstruction after mastectomy. 3. Bilateral acquired absence of the breast and nipple. 4. High risk for malignant neoplasm of the breast. 5. Family history of breast cancer. PROCEDURES PERFORMED: 1. Immediate reconstruction of right breast with free HAYDEN flap, CPT - S2068. 2. Reconstruction of right breast anatomic footprint with acellular dermalmatrix, CPT - 28804. 3. Exploration of the right flap superficial vessel system, CPT - 21891. 4. Immunofluorescence angiography, CPT - 38781. INDICATIONS FOR PROCEDURE: Ms. Amaro is a 58-year-old woman who was referredto me by Dr. Melodie Boucher for her breast reconstructive options. The patienthas a large component of DCIS in the right breast and is going to need toundergo mastectomy on that side. She does not want to do breast conservationtherapy and she also wishes to undergo a bilateral mastectomy. I saw her inconsultation and went over her reconstructive options including the use ofimplants versus the use of flaps and went through detailed discussion of both ofthose options. I described to her the flap, HAYDEN procedure in detail as well asthe tissue glue plant operator option and the patient would prefer to use autologous tissuein the form of a HAYDEN flap. I do think she is a good candidate for this, as she PATIENT NAME: ELIAN AMARO MARIELA has some extra skin down below her umbilicus and she would benefit from usingthat tissue. I conferred with Dr. Boucher, who agreed that since she is gettinga mastectomy is unlikely to need radiation and we therefore went ahead andplanned for the HAYDEN flap bilaterally. We went through the risk andcomplication profile with the patient in detail including flap failure, flapnecrosis, fat necrosis, infection, bleeding, contour deformities, irregularitiesand the need for revision. Also, described the use of possible need forplacement of tissue glue plant operator if we do indeed flap did fail. Also, she may be acandidate for nipple-sparing mastectomy and so we talked to the patient aboutdead skin, failing of the need for nipple reconstruction in the future. Wetalked about the recovery at length as well as the hospital stay. PROCEDURE IN DETAIL: After informed consent was obtained, the patient wasbrought to the operating room and placed supine on the operating table. Anesthesia was induced. Time-out procedure was done. She was prepped anddraped in normal sterile fashion. I began on the patient's right abdomen whileDr. Boucher was performing her bilateral mastectomies, which were nipple-sparing,and these were done through a radial type of incision. While Dr. Boucher'sportion was ongoing, please see her operative note for full details, I begandissecting out the right flap on the abdomen. I made my horizontal incision,and dissected out the superficial, inferior epigastric vein for severalcentimeters. I next explored a second superficial vessel system on the right flap, which wasmore lateral and deeper than the superficial vein itself. May contain both theartery and 2 vein and I dissected this out for several centimeters as well,which added a significant amount of extra time and work of the procedure. Afterthis, I then dissected down to the fascia completed the abdominal cut andencircled around the umbilicus and then dissected up to the medial and lateralrow perforators. I identified 3 perforating vessels on the lateral row anddissected down through the fascia and dissected the perforators through themuscle into their continuity with the underlying pedicle and down to its branchpoints off of the external iliac. After this, once Dr. Boucher had finished, I moved up to the right chest. Iexamined the skin flaps and I irrigated this out and obtained hemostasis. AfterI had attained hemostasis, I then dissected down over the fourth rib. Idissected down through the pectoralis muscle identified, medial segment of thecartilaginous portion of the fourth rib and removed this after dissecting offthe lining of the cartilage portion. I removed this and exposed the internalmammary vessels. I dissected it out for several centimeters and prepared themfor the microanastomosis. After that was done, I then identified my inframammary fold and anterioraxillary line, marked these out and then brought in my acellular dermal matrix. I then proceeded to reconstruct the inframammary fold and acellular dermalmatrix by securing the leading edge of the AlloDerm to these points using a 2-0Monocryl suture in several areas as they are typically violated as part of themastectomy. I placed two 15-Andorran drains and brought them out laterally in thechest and brought out laterally and secured in place with a 2-[address] Santo had similarly been performing his dissection on the left chest andthe left abdominal flap. Please see his operative note for full detailsregarding that portion of the procedure. PATIENT NAME: ELIAN AMARO After Dr. Santo had finished his left flap dissection, he then handed thisoff to me and after ligating the pedicle and I proceeded to perform mymicroanastomosis on the right chest. Initially, I used a 2.5 mm flow contract mail carrier toperform the venous microanastomosis. After cleaning off the adventitia for theartery on the chest as well as the flap side, I then performed my arterialmicroanastomosis under the microscope using an 8-0 nylon suture. After this wasdone, I then removed the Acland clamps and the flaps demonstrated good bloodflow throughout the remainder of the case. Also I de-epithelialized thisportion of the flap and after allowing the flap to sit in place for severalminutes, I then inset the right breast into the chest underneath the skin flaps. I marked out my area for my skin paddle and deepithelialized the remainingportion of the flap. I next brought my AlloDerm around using the other edge andattached this to the flap to help hold the flap in good position in ananteromedial manner. The AlloDerm was secured to the flap using 2-0 Monocrylsuture in simple interrupted manner. After this, I harvested the rightabdominal flap by ligating it at its pedicle and handed this off to Dr. Santowho performed the left flap anastomosis. Again, please see his operative notefor full details. The left breast was inset as was the right. Next, we began closing the abdomen. I brought in a lightweight polypropylene mesh and placed this under the rectusmuscle bilaterally to perform a Gabby-Stoppa type of mesh placement, which wasin a retrorectus plane and I closed the rectus muscle using a 2-0 Vicryl suture. The fascial incisions were then closed using a #1 PDS in a qtmjjyhqmwsh-yd-wuraj fashion followed by a #1 Prolene all in a running intermittentlocking fashion. We then plicated centrally the fascia above the umbilicususing a #1 Prolene suture. Next, we injected Exparel throughout the abdomen,deep to the external oblique muscle and lateral to our plication and then oncethe breast flaps were inset, we flexed the patient's bed, advanced the abdominalflap and closed this in several layers with 2-0 Vicryl in Raven's fasciafollowed by 2-0 Monocryl and 3-0 Monocryl with the assistance of the Insorbstapler also. We delivered the umbilicus through into its spot and secured thisin place with 2-0 Vicryl followed by 2-0 Monocryl and then 5-0 plain gut suture. This was covered with Xeroform and a Tegaderm. The abdominal incision wasclosed with Prineo and the breast incisions were simply covered with Xeroform. The skin paddle was fairly small. We had good triphasic signals and goodinternal Doppler signals upon departure for the ICU. We also placed exf14-Rpprkr drains in the abdomen and brought these out laterally and secured inplace with a 3-0 nylon suture. Prior to departing, we also brought in the Luqit system and performedintraoperative immunofluorescence angiography on both flaps as well as themastectomy skin. The flaps demonstrated good blood flow throughout the flapitself as did the left mastectomy skin. The right mastectomy skin demonstrateddecreased blood flow for sort of a large segment, especially around the rightnipple areolar complex. Therefore, I elected to try to keep this, but we didplace a nitroglycerin ointment over this. This concluded the procedure. DRAINS: Two 15-Andorran drains in each breast and two 15-Andorran drains in theabdomen. SPECIMENS: None for my portion. FINDINGS: 3- and 4-vessel supervisor heavy equipment flaps for the right and left side. PATIENT NAME: ELIAN AMARO MARIELA COMPLICATIONS: None. ESTIMATED BLOOD LOSS: 50 mL. DISPOSITION: To the ICU, in stable condition. ACELLULAR DERMAL MATRIX USED: 1. Right side, AlloDerm Select tissue matrix contour large perforated, lotnumber [id number], expiration date 11/2020, reference number [id number], 164 cmsq. 2. Left breast, AlloDerm Select tissue matrix contour large perforated, lotnumber [id number], expiration date 11/2020, reference number [id number], 164 cmsq. Dictated By: Kamaljit Delgado MD WT: OP:F.YANELIS/ESTIVEN.NTSDD: 03/08/2019 12:53:07DT: 03/08/2019 14:03:22Conf#: [id number]/DID#: [id number] Authenticated by Kamaljit Delgado MD On 04/07/2019 10:34:59 AM at 1035 PATIENT NAME: ELIAN AMARO [id number]:03:00F.[id number] lable for patient odpyUPNSAJZQNGWLVK7771-45-44V69:35:31 [facility] 2019-03-08 10:20:00 [id number] udf3nqZqvBkFqpz/hIjVPn+s86K0y 8LnKBbuks8hQ7m/2Bou8sAYJpaOhslh1xr6234-10-42H91:2 0:00 [facility]Pl[facility] Progress NoteREPORT#:[id number] REPORT STATUS: SignedDATE:03/08/19 TIME: 1020 PATIENT: ELIAN AMARO UNIT #: [id number]#: [id number] [facility] [birth year] AGE: 58 SEX: F ATTEND: Kamaljit Delgado MDADM AUTHOR: Lisa Smith TACTICAL INTELLIGENCE OFFICER * ALL edits or amendments must be made on the electronic/computer document * GeneralPost-op: day 3Status post:sanna nipple sparing mastectomy with hayden flap reconstruction SubjectiveChief Complaint:headache from nitro, incisional discomfort, irritation from drainsPatient reports:Yes: complaints, adequate PO intake, ambulating, feeling better, headache, incisional pain, pain. Nursing reports:Yes: complaints, adequate PO intake, ambulating, feeling better, headache, incisional pain, pain. Review of SystemsSkin:Reports: bruising. Cardiovascular:Reports: edema (trace generalized). Neuro:Reports: headache (nitropaste). All systems rev neg: except as marked Objective Physical ExamVS/I O:Last Documented: Result Date Time Pulse Ox 95 03/08 0500 Temp 98.3 03/08 0500 Pulse 80 03/08 0500 Resp 21 03/08 0500 B/P 139/70 03/08 0400 B/P Mean 98 03/08 0400 O2 Delivery Nasal cannula 03/07 0800 O2 Flow Rate 2.709147 03/07 0800 FiO2 100 03/05 2230 24 hour I O ending at 0700: 03/08 0700 03/07 1900 Intake Total 1700.00 Output Total 2430 2302 Balance -2430 -602.00 Intake, IV 1100.00 Intake, Oral 600 Output, 280 327 Drainage Output, Urine 2150 1975 Patient Weight Weight (lb): 166Weight (oz): 14.24Weight (kg): 75.700 Medications:Active Meds + DC'd Last 24 HrsAcetaminophen 650 MG Q6H PRN PRN PO Atorvastatin Calcium 10 MG DAILY PO Enoxaparin Sodium 40 MG DAILY SUBQ Hydrocodone Bitart/Acetaminophen 2 TAB Q6H PRN PRN PO Nitroglycerin 1 GM Q6H TOPICAL (CKD) Undefined Medication 50 ML ONCE ONE IV (DC) Cefazolin Sodium 1 GM Q8H IV (DC) Sterile Water 10 MLKetorolac Tromethamine 10 MG Q6HR PO Docusate Sodium 100 MG 0900,2100 PO Gabapentin 300 MG TID PO Potassium Chloride/Dextrose/Sod Cl 1,000 ML ASDIR IV (CKD) Hydrocodone Bitart/Acetaminophen 1 TAB Q6H PRN PRN PO Hydromorphone HCl 0.5 MG Q2H PRN PRN IV Ondansetron HCl 4 MG Q4H PRN PRN IV General appearance: alert, awake, oriented, no acute distress, pleasant, conversational, mental status normal, no respiratory distressWound/incision: Location:breast, abdomen Site condition: dressing clean dry, dressing intact, incision intact, no changes in wound, no drainage, no ecchymosis, no erythemaNeck: full range of motionBreast:Left: good shape, nipples perfused, normal capillary refill. Bilateral: abnormal capillary refill (ruq rlq lateral delayed), good size, incision healingwell, JPs in place, normal temperature, soft to touch, no drainage, no erythema. Breast comments:right nipple has some evidence of ischemia, darker red/light purple color has improved since yesterday, nitropaste to upper quadrant right breast and rlq morelaterally delayed capillary refill, color more of light brown bruise, cap refill<3 seconds but delayed in comparison to surrounding tissue and left breast. Leftbreast has some bruising, however edema has improved,cap refill has improved significantly along with nipple blood flow. Triphasic doppler signals, internal signals good waveform bilaterally, right stronger than left. Cardiovascular: regular rate rhythmRespiratory: aerating well, no distressAbdomen: incision healing well, FABRICIO drains, soft, umbilicus perfusedGenitourinary: deferredExtremities: edema (generalized trace), moves all, normal capillary refill, normal temperatureNeuro/WASTEWATER PLANT CIVIL ENGINEER: alert, oriented X 3 Considered stroke alert: noSkin: normal color, normal temperature, normal turgor ResultsResults: no new labs, vital signs stable, rhythm personally rev'd, current med profile rev'd Treatment Prophylaxis Treatment ProphylaxisFoley status: noneOxygen: room airLines: peripheralIV fluids: D5, 1/2 NS w/ KCl (75cc/hr) Diagnosis, Assessment PlanHospital course to date:pod3 s/p bilateral hayden flap. BP improved, doing better overall today, flap color has improved as well as doppler signal strength to left breast and cap refill bilaterally. Free Text A P:OOB to chair with meals tid, flap checks q4hrs, ivf 50cc/hr now, may discontinuetonight if adequate oral intake continues. Appetite has improved along with oralintake. Continue nitropaste to right breast. Place biopatch to all breast drainsand axilla with tegaderm. May change xeroform drsg to umbilicus. Floor status. Code status: full codePlan discussed with: patient, spouse/partner, nurse AttestationsAttestation needed: supervising physician at 1046 RPT #:[id number] OF REPORT PRProgress [id number]:20:00F.[id number] able for patient wdthDAQWCDWRMBAVHA8343-51-96O76:46:39 [facility] 2019-03-08 10:20:00 [id number] 3llhTkcg6EjS2IzwLZVmxF7Pzb1jp s0O6UtFBnfwRRwU8cRGK/b+2FPCDWgyDhs8056-21-19Y75:2 0:00 [facility] ([facility])Plastic Surgery Progress NoteREPORT#:[id number] REPORT STATUS: SignedDATE:03/08/19 TIME: 1020 PATIENT: ELIAN AMARO UNIT #: [id number]#: [id number] [facility] [birth year] AGE: 58 SEX: F ATTEND: Kamaljit Delgado [facility] AUTHOR: Lisa Smith TACTICAL INTELLIGENCE OFFICER * ALL edits or amendments must be made on the electronic/computer document * GeneralPost-op: day 3Status post:sanna nipple sparing mastectomy with hayden flap reconstruction SubjectiveChief Complaint:headache from nitro, incisional discomfort, irritation from drainsPatient reports:Yes: complaints, adequate PO intake, ambulating, feeling better, headache, incisional pain, pain. Nursing reports:Yes: complaints, adequate PO intake, ambulating, feeling better, headache, incisional pain, pain. Review of SystemsSkin:Reports: bruising. Cardiovascular:Reports: edema (trace generalized). Neuro:Reports: headache (nitropaste). All systems rev neg: except as marked Objective Physical ExamVS/I O:Last Documented: Result Date Time Pulse Ox 95 03/08 0500 Temp 98.3 03/08 0500 Pulse 80 03/08 0500 Resp 21 03/08 0500 B/P 139/70 03/08 0400 B/P Mean 98 03/08 0400 O2 Delivery Nasal cannula 03/07 0800 O2 Flow Rate 2.345670 03/07 0800 FiO2 100 03/05 2230 24 hour I O ending at 0700: 03/08 0700 03/07 1900 Intake Total 1700.00 Output Total 2430 2302 Balance -2430 -602.00 Intake, IV 1100.00 Intake, Oral 600 Output, 280 327 Drainage Output, Urine 2150 1975 Patient Weight Weight (lb): 166Weight (oz): 14.24Weight (kg): 75.700 Medications:Active Meds + DC'd Last 24 HrsAcetaminophen 650 MG Q6H PRN PRN PO Atorvastatin Calcium 10 MG DAILY PO Enoxaparin Sodium 40 MG DAILY SUBQ Hydrocodone Bitart/Acetaminophen 2 TAB Q6H PRN PRN PO Nitroglycerin 1 GM Q6H TOPICAL (CKD) Undefined Medication 50 ML ONCE ONE IV (DC) Cefazolin Sodium 1 GM Q8H IV (DC) Sterile Water 10 MLKetorolac Tromethamine 10 MG Q6HR PO Docusate Sodium 100 MG 0900,2100 PO Gabapentin 300 MG TID PO Potassium Chloride/Dextrose/Sod Cl 1,000 ML ASDIR IV (CKD) Hydrocodone Bitart/Acetaminophen 1 TAB Q6H PRN PRN PO Hydromorphone HCl 0.5 MG Q2H PRN PRN IV Ondansetron HCl 4 MG Q4H PRN PRN IV General appearance: alert, awake, oriented, no acute distress, pleasant, conversational, mental status normal, no respiratory distressWound/incision: Location:breast, abdomen Site condition: dressing clean dry, dressing intact, incision intact, no changes in wound, no drainage, no ecchymosis, no erythemaNeck: full range of motionBreast:Left: good shape, nipples perfused, normal capillary refill. Bilateral: abnormal capillary refill (ruq rlq lateral delayed), good size, incision healingwell, JPs in place, normal temperature, soft to touch, no drainage, no erythema. Breast comments:right nipple has some evidence of ischemia, darker red/light purple color has improved since yesterday, nitropaste to upper quadrant right breast and rlq morelaterally delayed capillary refill, color more of light brown bruise, cap refill<3 seconds but delayed in comparison to surrounding tissue and left breast. Leftbreast has some bruising, however edema has improved,cap refill has improved significantly along with nipple blood flow. Triphasic doppler signals, internal signals good waveform bilaterally, right stronger than left. Cardiovascular: regular rate rhythmRespiratory: aerating well, no distressAbdomen: incision healing well, FABRICIO drains, soft, umbilicus perfusedGenitourinary: deferredExtremities: edema (generalized trace), moves all, normal capillary refill, normal temperatureNeuro/WASTEWATER PLANT CIVIL ENGINEER: alert, oriented X 3 Considered stroke alert: noSkin: normal color, normal temperature, normal turgor ResultsResults: no new labs, vital signs stable, rhythm personally rev'd, current med profile rev'd Treatment Prophylaxis Treatment ProphylaxisFoley status: noneOxygen: room airLines: peripheralIV fluids: D5, 1/2 NS w/ KCl (75cc/hr) Diagnosis, Assessment PlanHospital course to date:pod3 s/p bilateral hayden flap. BP improved, doing better overall today, flap color has improved as well as doppler signal strength to left breast and cap refill bilaterally. Free Text A P:OOB to chair with meals tid, flap checks q4hrs, ivf 50cc/hr now, may discontinuetonight if adequate oral intake continues. Appetite has improved along with oralintake. Continue nitropaste to right breast. Place biopatch to all breast drainsand axilla with tegaderm. May change xeroform drsg to umbilicus. Floor status. Code status: full codePlan discussed with: patient, spouse/partner, nurse AttestationsAttestation needed: supervising physician at 1046 at 1957 RPT #:[id number] OF REPORT PRProgress Ayqf1840-37-67F67:20:00F.[id number] able for patient gzgyMWEWWYDEJETHVE0134-14-58L03:57:17 [facility] 2019-03-07 10:52:00 [id number] RTIAvi2Fm4hYvz1cmpx6YA473+ZqW 7C5WU2lQqSHH6BoCHs1HjOlIDBEotd3Jfk6890-91-45L51:5 2:00 [facility] ([facility])Plastic Surgery Progress NoteREPORT#:[id number] REPORT STATUS: SignedDATE:03/07/19 TIME: 1052 PATIENT: ELIAN AMARO UNIT #: [id number]#: [id number] [facility]: [facility]: [birth year] AGE: 58 SEX: F ATTEND: Kamaljit Delgado [facility] AUTHOR: Lisa Smith TACTICAL INTELLIGENCE OFFICER * ALL edits or amendments must be made on the electronic/computer document * GeneralPost-op: day 2Status post:sanna nipple sparing mastectomy with hayden flap reconstructionAntibiotics: day 3 SubjectiveChief Complaint:headache from nitropastePatient reports:Yes: headache, incisional pain, pain. No: shortness of breath. Nursing reports:Yes: headache, incisional pain, pain. No: shortness of breath. Review of SystemsConstitutional:Reports: malaise. Skin:Reports: bruising. Cardiovascular:Reports: edema (generalized trace). GI:Reports: anorexia. All systems rev neg: except as markedROS comments:resting in bedside chair at this time, c/o headache from nitropaste and generalized aching rates /10. Objective Physical ExamVS/I O:Last Documented: Result Date Time Pulse Ox 95 03/07 1000 B/P 130/63 03/07 1000 B/P Mean 90 03/07 1000 Pulse 78 03/07 1000 Resp 19 03/07 1000 O2 Flow Rate 2 03/07 0400 Temp 98.4 03/07 0400 O2 Delivery Nasal cannula 03/06 2015 FiO2 100 03/05 2230 24 hour I O ending at 0700: 03/07 0700 03/06 1900 Intake Total 1745.00 2200.00 Output Total 2621 1154 Balance -876.00 1046.00 Intake, IV 1500.00 1200.00 Intake, Oral 245 1000 Output, 246 204 Drainage Output, Urine 2375 950 Patient Weight Weight (lb): 166Weight (oz): 14.24Weight (kg): 75.700 Medications:Active Meds + DC'd Last 24 HrsAcetaminophen 650 MG Q6H PRN PRN PO Atorvastatin Calcium 10 MG DAILY PO Enoxaparin Sodium 40 MG DAILY SUBQ Hydrocodone Bitart/Acetaminophen 2 TAB Q6H PRN PRN PO Nitroglycerin 1 GM Q6H TOPICAL (CKD) Undefined Medication 50 ML ONCE ONE IV Cefazolin Sodium 1 GM Q8H IV Sterile Water 10 MLKetorolac Tromethamine 10 MG Q6HR PO Docusate Sodium 100 MG 0900,2100 PO Gabapentin 300 MG TID PO Potassium Chloride/Dextrose/Sod Cl 1,000 ML ASDIR IV (CKD) Hydrocodone Bitart/Acetaminophen 1 TAB Q6H PRN PRN PO Hydromorphone HCl 0.5 MG Q2H PRN PRN IV Ondansetron HCl 4 MG Q4H PRN PRN IV General appearance: alert, awake, orientedWound/incision: Location:breast, abdomen Site condition: dressing clean dry, dressing intact, incision intact, no changes in wound, no drainage, no ecchymosis, no erythemaNeck: full range of motionBreast:Bilateral: abnormal capillary refill (ruq breast delayed cap refill), edema, good size, incision healing well, JPs in place, normal temperature, no drainage,no erythema. Breast comments:ruq with nitropaste, triphasic doppler signals bilaterally, internal dopplers with good waveform, improved significantly from yesterday on left side, still more faint in comparison to right, however, stronger today, cap refill is delayed but still <3 seconds, bilateral nipples have dusky color that has improved today as well todayCardiovascular: regular rate rhythmRespiratory: aerating well, no distressAbdomen: incision healing well, FABRICIO drains, soft, umbilicus perfusedGenitourinary: deferredExtremities: edema (generalized), moves all, normal capillary refill, normal temperatureNeuro/WASTEWATER PLANT CIVIL ENGINEER: alert, oriented X 3 Considered stroke alert: noSkin: normal color, normal temperature, normal turgor ResultsResults: no new labs, vital signs stable, rhythm personally rev'd, current med profile rev'd Treatment Prophylaxis Treatment ProphylaxisFoley status: discontinue todayIndication for urinary catheter: accurate I/O and crit illUrine color: clearOxygen: nasal cannulaLines: peripheralIV fluids: 1/2 NS (75cc/hr), D5, 1/2 NS w/ KCl Diagnosis, Assessment PlanHospital course to date:pod2 s/p bilateral hayden flap. BP improved, doing better overall today, flap color has improved as well as doppler signal strength to left breast. Free Text A P:OOB to chair with meals tid, flap checks q2hrs, ivf 75cc/hr. Continue to advancediet as tolerated. This evening around 4-5 pm we can ambulate remove lynn, IMU status at this time. Code status: full codePlan discussed with: patient, nurse AttestationsAttestation needed: supervising physician at 1107 RPT #:[id number] OF REPORT PRProgress Pqtw9464-05-90G18:52:00F.[id number] able for patient xdzqGLSIMCCWAZACHI8366-38-23V76:07:47 [facility] 2019-03-07 10:52:00 [id number] mziLSy4lqGG7HSgIvgonBW/iIRo[facility] fC4HqCFSeuar+8ICVRcBiTiuOtM+En8zrL2260-54-02E86:5 2:00 [facility] ([facility])Plastic Surgery Progress NoteREPORT#:[id number] REPORT STATUS: SignedDATE:03/07/19 TIME: 1052 PATIENT: ELIAN AMARO UNIT #: [id number]#: [id number] [facility] [birth year] AGE: 58 SEX: F ATTEND: Kamaljit Delgado [facility] AUTHOR: Lisa Smith TACTICAL INTELLIGENCE OFFICER * ALL edits or amendments must be made on the electronic/computer document * GeneralPost-op: day 2Status post:sanna nipple sparing mastectomy with hayden flap reconstructionAntibiotics: day 3 SubjectiveChief Complaint:headache from nitropastePatient reports:Yes: headache, incisional pain, pain. No: shortness of breath. Nursing reports:Yes: headache, incisional pain, pain. No: shortness of breath. Review of SystemsConstitutional:Reports: malaise. Skin:Reports: bruising. Cardiovascular:Reports: edema (generalized trace). GI:Reports: anorexia. All systems rev neg: except as markedROS comments:resting in bedside chair at this time, c/o headache from nitropaste and generalized aching rates 10. Objective Physical ExamVS/I O:Last Documented: Result Date Time Pulse Ox 95 03/07 1000 B/P 130/63 03/07 1000 B/P Mean 90 03/07 1000 Pulse 78 03/07 1000 Resp 19 03/07 1000 O2 Flow Rate 2 03/07 0400 Temp 98.4 03/07 0400 O2 Delivery Nasal cannula 03/06 2015 FiO2 100 03/05 2230 24 hour I O ending at 0700: 03/07 0700 03/06 1900 Intake Total 1745.00 2200.00 Output Total 2621 1154 Balance -876.00 1046.00 Intake, IV 1500.00 1200.00 Intake, Oral 245 1000 Output, 246 204 Drainage Output, Urine 2375 950 Patient Weight Weight (lb): 166Weight (oz): 14.24Weight (kg): 75.700 Medications:Active Meds + DC'd Last 24 HrsAcetaminophen 650 MG Q6H PRN PRN PO Atorvastatin Calcium 10 MG DAILY PO Enoxaparin Sodium 40 MG DAILY SUBQ Hydrocodone Bitart/Acetaminophen 2 TAB Q6H PRN PRN PO Nitroglycerin 1 GM Q6H TOPICAL (CKD) Undefined Medication 50 ML ONCE ONE IV Cefazolin Sodium 1 GM Q8H IV Sterile Water 10 MLKetorolac Tromethamine 10 MG Q6HR PO Docusate Sodium 100 MG 0900,2100 PO Gabapentin 300 MG TID PO Potassium Chloride/Dextrose/Sod Cl 1,000 ML ASDIR IV (CKD) Hydrocodone Bitart/Acetaminophen 1 TAB Q6H PRN PRN PO Hydromorphone HCl 0.5 MG Q2H PRN PRN IV Ondansetron HCl 4 MG Q4H PRN PRN IV General appearance: alert, awake, orientedWound/incision: Location:breast, abdomen Site condition: dressing clean dry, dressing intact, incision intact, no changes in wound, no drainage, no ecchymosis, no erythemaNeck: full range of motionBreast:Bilateral: abnormal capillary refill (ruq breast delayed cap refill), edema, good size, incision healing well, JPs in place, normal temperature, no drainage,no erythema. Breast comments:ruq with nitropaste, triphasic doppler signals bilaterally, internal dopplers with good waveform, improved significantly from yesterday on left side, still more faint in comparison to right, however, stronger today, cap refill is delayed but still <3 seconds, bilateral nipples have dusky color that has improved today as well todayCardiovascular: regular rate rhythmRespiratory: aerating well, no distressAbdomen: incision healing well, FABRICIO drains, soft, umbilicus perfusedGenitourinary: deferredExtremities: edema (generalized), moves all, normal capillary refill, normal temperatureNeuro/WASTEWATER PLANT CIVIL ENGINEER: alert, oriented X 3 Considered stroke alert: noSkin: normal color, normal temperature, normal turgor ResultsResults: no new labs, vital signs stable, rhythm personally rev'd, current med profile rev'd Treatment Prophylaxis Treatment ProphylaxisFoley status: discontinue todayIndication for urinary catheter: accurate I/O and crit illUrine color: clearOxygen: nasal cannulaLines: peripheralIV fluids: 1/2 NS (75cc/hr), D5, 1/2 NS w/ KCl Diagnosis, Assessment PlanHospital course to date:pod2 s/p bilateral hayden flap. BP improved, doing better overall today, flap color has improved as well as doppler signal strength to left breast. Free Text A P:OOB to chair with meals tid, flap checks q2hrs, ivf 75cc/hr. Continue to advancediet as tolerated. This evening around 4-5 pm we can ambulate remove lynn, IMU status at this time. Code status: full codePlan discussed with: patient, nurse AttestationsAttestation needed: supervising physician at 1107 at 7987 RPT #:[id number] OF REPORT PRProgress [id number]:52:00F.[id number] able for patient besiHJHFPTSQIICICV3058-72-17O55:56:47 [facility] 2019-03-06 07:18:00 [id number] [id number] NvpUxhgeWS/Xh3oPxuXxsCf3Eys8yzejqm3992-60-53Y32:1 8:00 [facility]Pl[facility] Progress NoteREPORT#:[id number] REPORT STATUS: SignedDATE:03/06/19 TIME: 717 PATIENT: ELIAN AMARO UNIT #: [id number]#: [id number] ROOM[facility]: [facility]: [birth year] AGE: 58 SEX: F ATTEND: Kamaljit Delgado [facility] AUTHOR: Lisa Smith TACTICAL INTELLIGENCE OFFICER * ALL edits or amendments must be made on the electronic/computer document * GeneralPost-op: day 1Status post:sanna nipple sparing mastectomy with hayden flap reconstructionAntibiotics: day 2 SubjectiveChief Complaint:incisional painPatient reports:Yes: complaints, incisional pain. No: ambulating, shortness of breath. Nursing reports:Yes: incisional pain. No: shortness of breath. Review of SystemsConstitutional:Reports: generalized weakness. Skin:Reports: bruising, swelling. Respiratory:Denies: SOB. Cardiovascular:Reports: edema. All systems rev neg: except as marked Objective Physical ExamVS/I O:Last Documented: Result Date Time Pulse Ox 94 03/06 0600 B/P 84/50 03/06 0600 B/P Mean 62 03/06 0600 Pulse 89 03/06 0600 Resp 19 03/06 0600 O2 Delivery Nasal cannula 03/06 0400 O2 Flow Rate 2.962553 03/06 0400 Temp 98.4 03/06 0400 FiO2 100 03/05 2230 24 hour I O ending at 0700: 03/06 0700 03/05 1900 Intake Total 5525.00 Output Total 1355 Balance 4170.00 Intake, IV 5275.00 Intake, Oral 250 Output, 195 Drainage Output, 50 Estimated Blood Loss Output, Urine 1110 Patient 167 lb Weight Weight Standing scale Measurement Method Patient Weight Weight (lb): 166Weight (oz): 14.24Weight (kg): 75.700 Medications:Active Meds + DC'd Last 24 HrsAtorvastatin Calcium 10 MG DAILY PO Enoxaparin Sodium 40 MG DAILY SUBQ Hydrocodone Bitart/Acetaminophen 2 TAB Q6H PRN PRN PO Nitroglycerin 1 GM Q6H TOPICAL (CKD) Undefined Medication 50 ML ONCE ONE IV Cefazolin Sodium 1 GM Q8H IV Sterile Water 10 MLKetorolac Tromethamine 10 MG Q6HR PO Nitroglycerin 1 GM Q6H PRN PRN TOPICAL (DC) Docusate Sodium 100 MG 0900,2100 PO Gabapentin 300 MG TID PO Potassium Chloride/Dextrose/Sod Cl 1,000 ML ASDIR IV (CKD) Hydrocodone Bitart/Acetaminophen 1 TAB Q6H PRN PRN PO Hydromorphone HCl 0.5 MG Q2H PRN PRN IV Ondansetron HCl 4 MG Q4H PRN PRN IV Fentanyl Citrate 0 .STK-MED ONE .ROUTE (DC) Cefazolin Sodium 0 .STK-MED ONE .ROUTE (DC) Nitroglycerin 0 .STK-MED ONE .ROUTE (DC) Sodium Chloride 200 ML .STK-MED ONE INJ (DC) Sodium Chloride 0 .STK-MED ONE .ROUTE (DC) Rocuronium [place] 5 ML .STK-MED ONE INJ (DC) Hetastarch/Lactated Electrolytes 500 ML .STK-MED ONE INJ (DC) Acetaminophen 100 ML .STK-MED ONE INJ (DC) Rocuronium [place] 5 ML .STK-MED ONE INJ (DC) Rocuronium [place] 5 ML .STK-MED ONE INJ (DC) Fentanyl Citrate 0 .STK-MED ONE .ROUTE (DC) Acetaminophen 100 ML .STK-MED ONE INJ (DC) Cefazolin Sodium 0 .STK-MED ONE .ROUTE (DC) Rocuronium [place] 5 ML .STK-MED ONE INJ (DC) Hydrocodone Bitart/Acetaminophen 2 TAB ONCE PRN PO (DC) Hydromorphone HCl 0.5 MG PACU Q5MIN PRN PRN IV (DC) Meperidine HCl 12.5 MG PACU ASDIR PRN PRN IV (DC) Morphine Sulfate 2 MG PACU Q15MIN PRN PRN IV (DC) Ondansetron Base 4 MG ONCE PRN SL (DC) Ondansetron HCl 4 MG PACU ONCE PRN IV (DC) Ondansetron HCl 4 MG ONCE PRN IV (DC) Promethazine HCl 12.5 MG PACU ONCE PRN IM (DC) Bupivacaine Liposome 266 MG NOW ONE INFILTRAT (DC) Scopolamine HBr 0 .STK-MED ONE .ROUTE (DC) Heparin Sodium 5,000 UNITS PREOP SUBQ (DC) Bupivacaine HCl 0 .STK-MED ONE .ROUTE (DC) Lidocaine HCl 0 .STK-MED ONE .ROUTE (DC) Methylene Blue 0 .STK-MED ONE .ROUTE (DC) Sodium Chloride 0 .STK-MED ONE .ROUTE (DC) Heparin Sodium 0 .STK-MED ONE .ROUTE (DC) Papaverine HCl 0 .STK-MED ONE .ROUTE (DC) Sodium Chloride 10 ML .STK-MED ONE INJ (DC) Acetaminophen 1,000 MG PREOP PO (DC) Cefazolin Sodium 2 GM PREOP IV (DC) Citric Acid/Sodium Citrate 30 ML PREOP PO (DC) Enoxaparin Sodium 40 MG PREOP SUBQ (DC) Gabapentin 400 MG PREOP PO (DC) Omeprazole/Sodium Bicarbonate 1 CAP PREOP PO (DC) Sterile Water 20 ML PREOP IV (DC) General appearance: alert, awake, oriented, no acute distress, pleasant, conversational, no respiratory distressWound/incision: Location:breast, abdomen Site condition: dressing clean dry, dressing intact, incision intact, no changes in wound, no drainage, no erythemaNeck: full range of motionBreast:Right: abnormal capillary refill. Bilateral: abnormal skin, cool to touch, edema, good size, incision healing well, JPs in place. Breast comments:sanna breast bruising, flaps cool to touch, warmer in use, nitropaste to right breast ruq, cap refill delayed to right flap, nipple color has slight dusky color bilaterally, left flap appears more full in shape while right has less upper pole fullnessCardiovascular: regular rate rhythmRespiratory: aerating well, no distressAbdomen: incision healing well, FABRICIO drains, soft, umbilicus perfusedGenitourinary: deferredExtremities: edema (generalized), moves all, normal capillary refill, normal temperatureNeuro/WASTEWATER PLANT CIVIL ENGINEER: alert, oriented X 3 Considered stroke alert: noSkin: abnormal color (with exception of breast flaps), normal color, normal temperature, normal turgor ResultsFindings/Data:Laboratory Tests 03/050 Chemistry Sodium (135 - 145 mEq/L) 141 Potassium (3.5 - 5.0 mEq/L) 4.7 Chloride (100 - 115 mEq/L) 107 Carbon Dioxide (22 - 31 mEq/L) 24 Anion Gap (10 - 20) 14.40 BUN (7 - 18 mg/dL) 19 H Creatinine (0.5 - 1.0 mg/dL) 1.2 H Glomerular Filtr Rate (>60 ml/min) 46 L Glucose (65 - 110 mg/dL) 146 H Calcium (8.4 - 10.2 mg/dL) 7.2 L Magnesium (1.8 - 2.4 mg/dL) 1.6 L Laboratory Tests 03/050 Hematology WBC (6.6 - 12.1 K/mm3) 10.5 RBC (3.45 - 5.01 M/mm3) 3.66 Hgb (10.7 - 13.9 g/dL) 11.4 Hct (32.1 - 42.1 %) 35.6 MCV (84.1 - 94.8 fL) 97 H MCH (27 - 35 pg) 31.1 MCHC (32.2 - 34.1 gm/dL) 32.0 L RDW (12.4 - 16.5 %) 13.5 Plt Count (133 - 385 K/mm3) 220 MPV (9.1 - 12.7 fl) 10.9 Add Manual Diff YES Total Counted (#CELLS) 100 Seg Neutrophils % (56.5 - 79.4 %) 95 H Lymphocytes % (Manual) (20 - 40 %) 4 L Eosinophils % (Manual) (0 - 4 %) 1 Platelet Estimate (ADEQ) ADEQUATE Immature Plt Fraction (0.0 - 10.8 %) 0.0 Plt Morphology Comment (NORMAL) NORMAL Results: labs reviewed, vital signs stable Treatment Prophylaxis Treatment ProphylaxisFoley status: day 2Indication for urinary catheter: accurate I/O and crit illUrine color: clearOxygen: nasal cannulaLines: peripheralCVC/PICC documentation:CVC/PICC insertion date/time: IV fluids: D5, 1/2 NS w/ KCl Diagnosis, Assessment PlanFree Text A P:Right breast has evidence of ischemia to ruq and nipple, delayed cap refill > 3 seconds, left breast has more brisk cap refill but is still delayed. Bilateral triphasic doppler signals R>L, internal signals with good waveform R>L. Incisions c/d/i, well approximated, umbilicus well perfused. BP low, continue fluids, o2, flap checks q1hr. Sitting trial this evening, advance diet as tolerated, continue ivf, and lynn. Orders: Procedure Date/time Status Discharge Order 03/09 442 Active Code status: full codePlan discussed with: patient, nurse AttestationsAttestation needed: supervising physician Physician AttestationAgree w/findings plan:Agree with the findings and plan as documented by [insert AMRIT name];* my personal evaluation is[ ] at 1722 RPT #:[id number] OF REPORT PRProgress [id number]:18:00F.[id number] able for patient cmwoGCQWXSZWXXLJIO2808-15-95U16:23:14 [facility] 2019-03-06 07:18:00 [id number] [id number] Azx4Y6bU1zGdGqnG8zZ8jxhYz+oUDf8nux9820-33-84E39:1 8:00 [facility] ([facility])Plastic Surgery Progress NoteREPORT#:[id number] REPORT STATUS: SignedDATE:03/06/19 TIME: 717 PATIENT: ELIAN AMARO MARIELA UNIT #: [id number]#: [id number] [facility]: [facility] AGE: 58 SEX: F ATTEND: Kamaljit Delgado [facility] AUTHOR: Lisa Smith TACTICAL INTELLIGENCE OFFICER * ALL edits or amendments must be made on the electronic/computer document * GeneralPost-op: day 1Status post:sanna nipple sparing mastectomy with hayden flap reconstructionAntibiotics: day 2 SubjectiveChief Complaint:incisional painPatient reports:Yes: complaints, incisional pain. No: ambulating, shortness of breath. Nursing reports:Yes: incisional pain. No: shortness of breath. Review of SystemsConstitutional:Reports: generalized weakness. Skin:Reports: bruising, swelling. Respiratory:Denies: SOB. Cardiovascular:Reports: edema. All systems rev neg: except as marked Objective Physical ExamVS/I O:Last Documented: Result Date Time Pulse Ox 94 03/06 600 B/P 84/50 03/06 600 B/P Mean 62 03/06 600 Pulse 89 03/06 06 Resp 19 03/06 06 O2 Delivery Nasal cannula 03/06 400 O2 Flow Rate 2.766449 03/06 400 Temp 98.4 03/06 400 FiO2 100 03/05 223 24 hour I O ending at 0700: 03/06 0700 03/05 1900 Intake Total 5525.00 Output Total 1355 Balance 4170.00 Intake, IV 5275.00 Intake, Oral 250 Output, 195 Drainage Output, 50 Estimated Blood Loss Output, Urine 1110 Patient 167 lb Weight Weight Standing scale Measurement Method Patient Weight Weight (lb): 166Weight (oz): 14.24Weight (kg): 75.700 Medications:Active Meds + DC'd Last 24 HrsAtorvastatin Calcium 10 MG DAILY PO Enoxaparin Sodium 40 MG DAILY SUBQ Hydrocodone Bitart/Acetaminophen 2 TAB Q6H PRN PRN PO Nitroglycerin 1 GM Q6H TOPICAL (CKD) Undefined Medication 50 ML ONCE ONE IV Cefazolin Sodium 1 GM Q8H IV Sterile Water 10 MLKetorolac Tromethamine 10 MG Q6HR PO Nitroglycerin 1 GM Q6H PRN PRN TOPICAL (DC) Docusate Sodium 100 MG 0900,2100 PO Gabapentin 300 MG TID PO Potassium Chloride/Dextrose/Sod Cl 1,000 ML ASDIR IV (CKD) Hydrocodone Bitart/Acetaminophen 1 TAB Q6H PRN PRN PO Hydromorphone HCl 0.5 MG Q2H PRN PRN IV Ondansetron HCl 4 MG Q4H PRN PRN IV Fentanyl Citrate 0 .STK-MED ONE .ROUTE (DC) Cefazolin Sodium 0 .STK-MED ONE .ROUTE (DC) Nitroglycerin 0 .STK-MED ONE .ROUTE (DC) Sodium Chloride 200 ML .STK-MED ONE INJ (DC) Sodium Chloride 0 .STK-MED ONE .ROUTE (DC) Rocuronium [place] 5 ML .STK-MED ONE INJ (DC) Hetastarch/Lactated Electrolytes 500 ML .STK-MED ONE INJ (DC) Acetaminophen 100 ML .STK-MED ONE INJ (DC) Rocuronium [place] 5 ML .STK-MED ONE INJ (DC) Rocuronium [place] 5 ML .STK-MED ONE INJ (DC) Fentanyl Citrate 0 .STK-MED ONE .ROUTE (DC) Acetaminophen 100 ML .STK-MED ONE INJ (DC) Cefazolin Sodium 0 .STK-MED ONE .ROUTE (DC) Rocuronium [place] 5 ML .STK-MED ONE INJ (DC) Hydrocodone Bitart/Acetaminophen 2 TAB ONCE PRN PO (DC) Hydromorphone HCl 0.5 MG PACU Q5MIN PRN PRN IV (DC) Meperidine HCl 12.5 MG PACU ASDIR PRN PRN IV (DC) Morphine Sulfate 2 MG PACU Q15MIN PRN PRN IV (DC) Ondansetron Base 4 MG ONCE PRN SL (DC) Ondansetron HCl 4 MG PACU ONCE PRN IV (DC) Ondansetron HCl 4 MG ONCE PRN IV (DC) Promethazine HCl 12.5 MG PACU ONCE PRN IM (DC) Bupivacaine Liposome 266 MG NOW ONE INFILTRAT (DC) Scopolamine HBr 0 .STK-MED ONE .ROUTE (DC) Heparin Sodium 5,000 UNITS PREOP SUBQ (DC) Bupivacaine HCl 0 .STK-MED ONE .ROUTE (DC) Lidocaine HCl 0 .STK-MED ONE .ROUTE (DC) Methylene Blue 0 .STK-MED ONE .ROUTE (DC) Sodium Chloride 0 .STK-MED ONE .ROUTE (DC) Heparin Sodium 0 .STK-MED ONE .ROUTE (DC) Papaverine HCl 0 .STK-MED ONE .ROUTE (DC) Sodium Chloride 10 ML .STK-MED ONE INJ (DC) Acetaminophen 1,000 MG PREOP PO (DC) Cefazolin Sodium 2 GM PREOP IV (DC) Citric Acid/Sodium Citrate 30 ML PREOP PO (DC) Enoxaparin Sodium 40 MG PREOP SUBQ (DC) Gabapentin 400 MG PREOP PO (DC) Omeprazole/Sodium Bicarbonate 1 CAP PREOP PO (DC) Sterile Water 20 ML PREOP IV (DC) General appearance: alert, awake, oriented, no acute distress, pleasant, conversational, no respiratory distressWound/incision: Location:breast, abdomen Site condition: dressing clean dry, dressing intact, incision intact, no changes in wound, no drainage, no erythemaNeck: full range of motionBreast:Right: abnormal capillary refill. Bilateral: abnormal skin, cool to touch, edema, good size, incision healing well, JPs in place. Breast comments:sanna breast bruising, flaps cool to touch, warmer in use, nitropaste to right breast ruq, cap refill delayed to right flap, nipple color has slight dusky color bilaterally, left flap appears more full in shape while right has less upper pole fullnessCardiovascular: regular rate rhythmRespiratory: aerating well, no distressAbdomen: incision healing well, FABRICIO drains, soft, umbilicus perfusedGenitourinary: deferredExtremities: edema (generalized), moves all, normal capillary refill, normal temperatureNeuro/WASTEWATER PLANT CIVIL ENGINEER: alert, oriented X 3 Considered stroke alert: noSkin: abnormal color (with exception of breast flaps), normal color, normal temperature, normal turgor ResultsFindings/Data:Laboratory Tests 03/05 2200 Chemistry Sodium (135 - 145 mEq/L) 141 Potassium (3.5 - 5.0 mEq/L) 4.7 Chloride (100 - 115 mEq/L) 107 Carbon Dioxide (22 - 31 mEq/L) 24 Anion Gap (10 - 20) 14.40 BUN (7 - 18 mg/dL) 19 H Creatinine (0.5 - 1.0 mg/dL) 1.2 H Glomerular Filtr Rate (>60 ml/min) 46 L Glucose (65 - 110 mg/dL) 146 H Calcium (8.4 - 10.2 mg/dL) 7.2 L Magnesium (1.8 - 2.4 mg/dL) 1.6 L Laboratory Tests 03/05 2200 Hematology WBC (6.6 - 12.1 K/mm3) 10.5 RBC (3.45 - 5.01 M/mm3) 3.66 Hgb (10.7 - 13.9 g/dL) 11.4 Hct (32.1 - 42.1 %) 35.6 MCV (84.1 - 94.8 fL) 97 H MCH (27 - 35 pg) 31.1 MCHC (32.2 - 34.1 gm/dL) 32.0 L RDW (12.4 - 16.5 %) 13.5 Plt Count (133 - 385 K/mm3) 220 MPV (9.1 - 12.7 fl) 10.9 Add Manual Diff YES Total Counted (#CELLS) 100 Seg Neutrophils % (56.5 - 79.4 %) 95 H Lymphocytes % (Manual) (20 - 40 %) 4 L Eosinophils % (Manual) (0 - 4 %) 1 Platelet Estimate (ADEQ) ADEQUATE Immature Plt Fraction (0.0 - 10.8 %) 0.0 Plt Morphology Comment (NORMAL) NORMAL Results: labs reviewed, vital signs stable Treatment Prophylaxis Treatment ProphylaxisFoley status: day 2Indication for urinary catheter: accurate I/O and crit illUrine color: clearOxygen: nasal cannulaLines: peripheralCVC/PICC documentation:CVC/PICC insertion date/time: IV fluids: D5, 1/2 NS w/ KCl Diagnosis, Assessment PlanFree Text A P:Right breast has evidence of ischemia to ruq and nipple, delayed cap refill > 3 seconds, left breast has more brisk cap refill but is still delayed. Bilateral triphasic doppler signals R>L, internal signals with good waveform R>L. Incisions c/d/i, well approximated, umbilicus well perfused. BP low, continue fluids, o2, flap checks q1hr. Sitting trial this evening, advance diet as tolerated, continue ivf, and lynn. Orders: Procedure Date/time Status Discharge Order 03/09 822 Active Code status: full codePlan discussed with: patient, nurse AttestationsAttestation needed: supervising physician Physician AttestationAgree w/findings plan:Agree with the findings and plan as documented by [insert AMRIT name];* my personal evaluation is[ ] at 1729 at 1396 RPT #:[id number] OF REPORT PRProgress [id number]:18:00F.[id number] able for patient imlnHOMQCQMCNDLWDE8788-35-03N83:56:47 [facility] 2019-03-05 17:38:00 [id number] cmjR2Q5NMbI3NQzkEboDMjf23fS3vVrdtI5693-67-39V33:3 8:00 [facility] ([facility])Full Op NoteREPORT#:[id number] REPORT STATUS: SignedDATE:03/05/19 TIME: 1737 PATIENT: ELIAN AMARO UNIT #: [id number]#: [id number] ROOM/BED:: 58 AGE: 58 SEX: F ATTEND: Melodie Boucher [facility] AUTHOR: Melodie Boucher MD * ALL edits or amendments must be made on the electronic/computer document * Operative ReportStart date: 03/05/19Start time: 946Pre-procedure diagnosis:Right breast cancerPost-procedure diagnosis:sameProcedures performed:1. Right nipple-sparing mastectomy2. Right sentinel lymph node biopsy3. Left prophylactic nipple-sparing mastectomy4. Intraoperative lymph node mappingTechnique/Procedure:The patient was taken to the operating room and placed supine on the operating room table. Bilateral lower extremity sequential compression stockings were applied, a Lynn catheter was placed, and perioperative antibiotics and subcutaneous lovenox were given prior to the induction of general anesthesia. Radio-labeled sulfur colloid was previously injected intradermally at the upper outer border of the right nipple areolar complex by nuclear medicine. I elected not to use methylene blue to prevent possible skin necrosis of the nipple and patient had strong mapping with radiotracer. The patient's chest andabdomen were then prepped and draped in the standard sterile fashion. A time out was performed to verify the correct patient, procedure and laterality. The planned incision and borders of the breast were marked on both sides with a skin marker. Starting on the right, a 9:00 radial incision was made with the scalpel and carried down through the skin and subcutaneous tissue. Next, flaps were createdin all directions, superiorly to the level of the clavicle, inferiorly to the inframammary fold, laterally to the latissimus dorsi muscle edge, and medially to the lateral border of the sternum. The breast was then removed off its underlying pectoralis major muscle with pectoralis major fascia as its deep margin from medial to lateral. A thin shave margin was taken from the breast atthe level of the nipple. A clip was placed on the true margin and this was sentto pathology for frozen section. The breast specimen was labeled as right mastectomy with suture on the axillary tail and clip at nipple and submitted to Pathology. Some remaining breast tissue of the lateral breast was removed using a thin shave technique and submitted to pathology as right lateral breast margin. Careful hemostasis was obtained in the breast cavity. The nipple margin was negative for cancer. The SLNB was performed next through the breast wound. With the guidance of the Neoprobe several lymph node were mapped and identified. The lymph nodes were carefully dissected out and removed and submitted to pathology. A few other lymph nodes were identified by palpation and these were dissected out and submitted to pathology as well. The axilla was carefully inspected, and no other suspicious nodes were identified by palpation or Neoprobe. The axilla wasirrigated with saline and hemostasis was achieved. The left mastectomy was then performed in a similar fashion as the right. A 3:00 radial incision was made with the scalpel and carried down through the skin and subcutaneous tissue, and flaps were created in all directions, superiorly tothe level of the clavicle, inferiorly to the inframammary fold, laterally to thelatissimus dorsi muscle edge, and medially to the lateral border of the sternum. The breast was then removed off its underlying pectoralis major muscle with pectoralis major fascia as its deep margin from medial to lateral. The specimenwas labeled as left mastectomy with suture on the axillary tail and clip at nipple and submitted to Pathology. Additional breast tissue was removed superiorly and submitted as left breast superior margin. Hemostasis was achieved, and a warm moist lap was placed in the breast cavity. The patient was then turned over to plastic surgery for the reconstruction. Thepatient was in stable condition and there were no complications for this portionof the procedure. All sponge, needle, and instrument counts were correct at theconclusion of this portion of the procedure. This case required increased time and intensity to perform due to the technical difficulty of obtaining a good oncologic outcome as well as an acceptable cosmetic outcome. Special attention was taken bilaterally throughout the case to maintain even thickness of the skin flaps, and extra attention was given to preserve the perforators off the JEREMY bilaterally in the superior-medial breast tissue. This effort was taken to ensure adequate perfusion to the skin flaps. Cautery was limited under the nipple to help maintain perfusion of the nipple.Primary Surgeon: Dr. 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 Due to the extent of disease in the right breast a mastectomy was recommended. We had a detailed discussion about the surgical management of breast cancer including the risks and benefits of doing a left prophylactic mastectomy. Patient electedfor bilateral mastectomies. After consultation with Dr. Delgado, plastic surgeon, she has decided reconstruction with HAYDEN flaps. We discussed the risksof surgery and the additional risks and complications that can occur with operating on the unaffected breast. The risks include but are not limited to infection, bleeding, hematoma, seroma, abscess, nerve or vessel injury, skin andnipple ischemia or necrosis, poor cosmetic outcome, recurrence and need for additional procedures. We are performing a sentinel lymph node biopsy in the event invasive cancer is found on final pathology. We discussed the risks of axillary surgery which include infection, bleeding, hematoma, seroma or abscess formation, chronic nerve injury, decreased sensitivity or function of the arm, and lymphedema of the upper extremity. She agrees to proceed and has signed consent.Operative findings:Normal breast parenchymaComplications: noneEstimated blood loss in ml's: 100Specimens removed/altered: Right and left mastectomies, right breast lateral margin, right nipple margin, left breast superior margin, right sentinel LNsImplant(s): none at [address] [facility] #:[id number] OF REPORT OPOperative [id number].[id number] ilable for patient [id number]:42:10 [facility] 2019-02-28 10:17:00 [id number] aIjkwC/[id number]:1 [id number] [facility] [address], [place] [address] PATIENT NAME: ELIAN AMARO ADMIT DATE: ACCOUNT NO: [id number] ROOM NO: AGE: 58 SEX: F ADMITTING PHYSICIAN: ATTENDING PHYSICIAN: Melodie Boucher MD Order:[id number] Reason : PRE-OP Test Date/Time Stamp:TueFeb 28 2019 10:17:37Blood Pressure : / mmHGVent. Rate : 060 BPM Atrial Rate : 060 BPM P-R Int : 164 ms QRS Dur : 074 ms QT Int : 438 ms P-R-T Axes : 029 -13 043 degrees QTc Int : 438 ms Normal sinus rhythmNormal ECGNo previous ECGs availableConfirmed by EMILY SALAZAR MD ([id number]) on 03/01/2019 8:15:41 AM Referred By: DOES_NOT KNOW Confirmed by:EMILY SALAZAR MD at 0815 PATIENT NAME: ELIAN AMARO .[id number] AVAvailable for patient [id number]:16:02 [facility]
[2023-08-25] MEDS ORDERED: FOLIC ACID 5 MG/ML VIAL ONE (19:42)
[2023-08-25] MEDS ORDERED: NA CHLORIDE 0.9% 1,000 ML ONE (19:44)
--- NOTE | 2023-08-25 20:10 | RAD REPORT ---
[facility] 7[facility]19 pm CLINICAL HISTORY: Cough;Chest pain COMPARISON: No comparisons TECHNIQUE: Portable AP view of the chest. FINDINGS: The lungs are clear. No pneumothorax or effusion. The cardiomediastinal contours are unre markable. IMPRESSION: No acute cardiopulmonary process.
[2023-08-25] MEDS ORDERED: MECLIZINE HCL 12.5 MG TAB ONE (20:27)
[2023-08-25 20:29] LABS: Specific Gravity 1.006 (1.005-1.030); Sqamous Epithelial None Seen /HPF (None Seen); Urine Bacteria <20 /HPF (<20); Urine Bilirubin NEGATIVE (Negative); Urine Blood Negative (Negative); Urine Clarity Clear (Clear); Urine Color Colorless (Yellow); Urine Culture Reflex Order NOT NEEDED; Urine Glucose NEGATIVE (Negative); Urine Ketones NEGATIVE (Negative); Urine Microscopic Reflex YN ORDER UMIC; Urine Nitrite NEGATIVE (Negative); Urine Protein NEGATIVE (Negative); Urine RBC <5 /HPF (None Seen); Urine Urobilinogen Normal (Normal); Urine WBC <5 /HPF (<5); Urine pH 6.5 (5.0-7.0)
[2023-08-25 20:30] LABS: Absolute Eosinophils 0.2 K/uL (0-0.5); Absolute Lymphocytes (CBC) 2.6 K/uL (0.7-4.9); Absolute Monocytes 0.5 K/uL (0.1-1.3); Absolute Neutrophil 4.2 K/uL (1.8-8.0); Basophils % 0.4 % (0-1.3); Hematocrit 39.5 % (36.0-45.0); Hemoglobin 12.8 g/dL (12.0-15.0); Lymphocytes % 34.2 % (15.3-44.8); MCH 30.8 pg (27.0-35.0); MCHC 32.5 g/dL (32.0-36.0); MCV 94.8 fL (80-100); MPV 8.4 fL (7.6-11.3); Monocytes % 6.7 % (3.3-12.3); Neutrophils % 56.7 % (41.7-73.7); Platelets 229 thou/uL (152-406); RBC Red Blood Cell Count 4.17 M/uL (3.86-4.86); Red Cell Distribution Width 14.3 % (12.1-15.2)
[2023-08-25 20:31] LABS: PT Prothrombin Time 10.1 SECONDS (9.5-12.5); Protime INR 0.92
[2023-08-25 20:45] LABS: ALT/SGPT 19 U/L (13-56); Albumin 3.7 g/dL (3.4-5.0); Albumin/Globulin Ratio 1.2 (1.1-1.8); Alkaline Phosphatase 50 U/L (45-117); Anion Gap 9.4 mEq/L (5.0-15.0); BUN Blood Urea Nitrogen 20 mg/dL (7-18); Bicarbonate 27 mEq/L (21-32); Bilirubin Direct 0.2 mg/dL (0-0.2); Bilirubin Indirect, Calculated 0.6 mg/dL (0.2-0.8); Bilirubin Total 0.8 mg/dL (0.2-1.0); Glomerular Filtration Rate 42 ml/min (=/>90); Glucose Level 94 mg/dL (74-106); Lipase 32 U/L (13-75); Magnesium 2.4 mg/dL (1.6-2.4); NT PRO-BNP 104 pg/mL (<125); Potassium 4.4 mEq/L (3.5-5.1); Protein, Total 6.7 g/dL (6.4-8.2); Sodium Level 142 mEq/L (136-145); Troponin High Sensitivity 4.8 pg/mL (<58.9)
[2023-08-25 20:47] LABS: AST/SGOT < 10 U/L (15-37)
--- NOTE | 2023-08-25 20:53 | RAD REPORT ---
EXAM DESCRIPTION: - CP - 08/25/2023 8:05 pm CLINICAL HISTORY: DIZZINESS COMPARISON: No comparisons TECHNIQUE: Real-time sonographic grayscale, color duplex, and spectral wave Doppler evaluation of [facility] carotid systems was performed. FINDINGS: Normal high resistance waveforms are noted in both external carotid arteries. The common c arotid arteries and internal carotid arteries show normal low resistance waveforms. No significant plaque formation is seen. Peak systolic velocity less than 125 cm/ sec bilaterally. I CA/CCA peak systolic ratios less than 2.0 bilaterally. Antegrade flow seen in both vertebral arteries. IMPRESSION: No significant atherosclerotic changes noted. No evidence of a hemodynamically significant stenosis. Evaluation of carotid artery stenosis, if any, is reported based on consensus recommendations of the Society of Radiologists in Ultrasound (Luis et al., Radiology, 2003)
[2023-08-25] MEDS ORDERED: ASPIRIN 81 MG CHEWABLE TABLET ONE (21:36)
--- NOTE | 2023-08-25 22:09 | RAD REPORT ---
EXAM DESCRIPTION: CT - Head Brain Wo Cont - 08/25/2023 9:28 pm CLINICAL HISTORY: HEADACHE COMPARISON: No comparisons TECHNIQUE: Noncontrast head CT images were obtained without IV contrast. Multiplanar reformats were generated and reviewed. All CT scans are performed using dose optimization technique as appropriate and may include automated exposure control or mA/KV adjustment according to patient size. FINDINGS: No intracranial hemorrhage, mass, or edema. Midline structures are unremarkable. Normal ventricular caliber for age. Reis-white matter differentiation is preserved, without evidence of acute infarct. No abnormal extra- axial fluid collections. Mastoid air cells and visualized portions of the paranasal sinuses are clear. No acute bony findings. IMPRESSION: No evidence of an acute intracranial process.
--- NOTE | 2023-08-25 22:15 | RAD REPORT ---
EXAM DESCRIPTION: CT - Angio Aorta For Dissection - 08/25/2023 9:28 pm CLINICAL HISTORY: Nausea / vomiting;Pain;Dissection COMPARISON: Abdomen Pelvis W/Wo Contrast dated 07/05/2023 TECHNIQUE: Thin axial CT images of the chest, abdomen, and pelvis were obtained during administratio n of 100mL Isovue 370 IV contrast. Sagittal and coronal reconstructions as well as maximal intensity projection reconstruction were generated and reviewed per an aortic angiography protocol. All CT scans are performed using dose optimization technique as appropriate and may include automated exposure control or mA/KV adjustment according to patient size. FINDINGS: Aorta is normal in diameter with no dissection or other acute aortic findings. Variant nandini micheal with the left vertebral artery arising from the left subclavian artery first segment. Reconstruc tion images show no significant findings. Pulmonary artery evaluation is limited due to suboptimal contrast timing. No mass or infiltrate in the lung parenchyma. No pleural thickening, pleural effusion or pneumothorax . No abnormal mediastinal or hilar mass or lymphadenopathy seen. No chest wall mass or abnormal axillar y lymphadenopathy. Celiac, SMA and renal arteries show no suspicious findings. Colonic diverticulosis. Solid abdominal v iscera and bowel show no significant findings. No mass or abnormal lymphadenopathy. IMPRESSION: No acute abnormalities on CT angiogram of the aorta. No other acute findings on chest, abdomen and pelvis examination. Colonic diverticulosis.
--- NOTE | 2023-08-25 23:00 | EDPHYS ---
Physician Documentation [facility] Name: Mariah Oswald Age: 63 yrs Sex: Female : 1960 Arrival Date: 08/25/2023 Time: 18:39 Bed 5 Private MD: ED Physician Viktor Erickson HPI: 08/24 18:51 This 63 yrs old Female presents to ER via Unassigned with complaints of leonidas Headache, Dizziness, Back Pain, High Blood Pressure. 18:51 The patient complains of pain to the top of head and forehead. The patient describes leonidas the headache as aching. Onset: The symptoms/episode began/occurred today. Associated signs and symptoms: The patient has no apparent associated signs or symptoms. Severity of symptoms: At its worst the pain was mild, in the emergency department the pain is unchanged. 18:52 The patient presents with pain that is acute, with no known mechanism of injury. The leonidas symptoms are located in the thoracic area. The pain does not radiate. Associated signs and symptoms: Pertinent positives: headache, nausea, numbness, weakness. The problem was sustained from unknown cause. Modifying factors: The patient symptoms are alleviated by nothing, the patient symptoms are aggravated by nothing. Historical: - Allergies: 19:06 Sulfa (Sulfonamide Antibiotics); as6 - PMHx: 19:06 GERD; Hypertensive disorder; as6 - PSHx: 19:06 section; Ligation of fallopian tube; breast ca; as6 - Immunization history:: Adult Immunizations up to date. - Infectious Disease History:: Denies. - Family history:: not pertinent. - Social history:: Smoking status: Patient denies any tobacco usage or history of. ROS: 18:53 Constitutional: Negative for fever, chills, and weight loss, Eyes: Negative for injury, leonidas pain, redness, and discharge, ENT: Negative for injury, pain, and discharge, Neck: Negative for injury, pain, and swelling, Cardiovascular: Negative for chest pain, palpitations, and edema, Respiratory: Negative for shortness of breath, cough, wheezing, and pleuritic chest pain, Abdomen/GI: Negative for abdominal pain, nausea, vomiting, diarrhea, and constipation, : Negative for injury, bleeding, discharge, and swelling, MS/Extremity: Negative for injury and deformity, Skin: Negative for injury, rash, and discoloration, Psych: Negative for depression, anxiety, suicide ideation, homicidal ideation, and hallucinations, Allergy/Immunology: Negative for hives, rash, and allergies, Endocrine: Negative for neck swelling, polydipsia, polyuria, polyphagia, and marked weight changes, Hematologic/Lymphatic: Negative for swollen nodes, abnormal bleeding, and unusual bruising, 18:53 Back: Positive for pain at rest, of the thoracic area, 18:53 Neuro: Positive for dizziness, headache, weakness, Exam: 18:53 Constitutional: This is a well developed, well nourished patient who is awake, alert, leonidas and in no acute distress. Head/Face: Normocephalic, atraumatic. Eyes: Pupils equal round and reactive to light, extra-ocular motions intact. Lids and lashes normal. Conjunctiva and sclera are non-icteric and not injected. Cornea within normal limits. Periorbital areas with no swelling, redness, or edema. ENT: Nares patent. No nasal discharge, no septal abnormalities noted. Tympanic membranes are normal and external auditory canals are clear. Oropharynx with no redness, swelling, or masses, exudates, or evidence of obstruction, uvula midline. Mucous membranes moist. Neck: Trachea midline, no thyromegaly or masses palpated, and no cervical lymphadenopathy. Supple, full range of motion without nuchal rigidity, or vertebral point tenderness. No Meningismus. Chest/axilla: Normal chest wall appearance and motion. Nontender with no deformity. No lesions are appreciated. Cardiovascular: Regular rate and rhythm with a normal S1 and S2. No gallops, murmurs, or rubs. Normal PMI, no JVD. No pulse deficits. Respiratory: Lungs have equal breath sounds bilaterally, clear to auscultation and percussion. No rales, rhonchi or wheezes noted. No increased work of breathing, no retractions or nasal flaring. Abdomen/GI: Soft, non-tender, with normal bowel sounds. No distension or tympany. No guarding or rebound. No evidence of tenderness throughout. Back: No spinal tenderness. No costovertebral tenderness. Full range of motion. Skin: Warm, dry with normal turgor. Normal color with no rashes, no lesions, and no evidence of cellulitis. MS/ Extremity: Pulses equal, no cyanosis. Neurovascular intact. Full, normal range of motion. Neuro: Awake and alert, GCS 15, oriented to person, place, time, and situation. Cranial nerves II-XII grossly intact. Motor strength 5/5 in all extremities. Sensory grossly intact. Cerebellar exam normal. Normal gait. Psych: Awake, alert, with orientation to person, place and time. Behavior, mood, and affect are within normal limits. 18:53 Neuro: Orientation: is normal, appropriate for stated age, Mentation: is normal, appropriate for stated age, Memory: is normal, Cranial nerves: grossly normal, Cerebellar function: is grossly normal, is grossly normal based on the patient's age, no acute changes, Motor: is normal, is grossly normal based on the patient's age, no acute changes, moves all fours, strength is normal, strength is 5/5 in all extremities, Sensation: is normal, no obvious gross deficits, appropriate Gait: not tested. Deep tendon reflexes are 2+ (normal) in the bilateral brachioradialis, bicep, tricep and patellar and Achilles tendons, Babinski testing is normal, seizure activity, is not displayed by the patient, 19:38 ECG was reviewed by the Attending Physician. [facility] 23:02 EKG review EKG time 1934 normal sinus rhythm at a rate of 66 overall normal EKG. sp4 Vital Signs: 19:05 BP 173 / 87; Pulse 62; Resp 18; Temp 97.4; Pulse Ox 98% on R/A; Weight 65.32 kg; Height as6 5 ft. 3 in. ; Pain 0/10; 20:39 BP 167 / 82; Pulse 62; Resp 18; Temp 97.9; Pulse Ox 98% on R/A; rg5 21:40 BP 153 / 75; Pulse 60; Resp 17; Temp 97.9; Pulse Ox 100% on R/A; Pain 3/10; rg5 22:59 BP 172 / 87 Supine; Pulse 60; cp4 22:59 BP 174 / 92 Sitting; Pulse 60; cp4 22:59 BP 171 / 107 Standing; Pulse 60; cp4 23:05 BP 155 / 94; Pulse 60; Resp 18; Temp 97.9; Pulse Ox 99% ; Pain 0/10; rg5 19:05 Body Mass Index 25.51 (65.32 kg, 160.02 cm) as6 19:05 Pain Scale: Adult as6 21:40 Pain Scale: Adult rg5 23:05 Pain Scale: Adult rg5 NIH Stroke Scale Scores: 19:26 NIHSS Score: 0 leonidas [place] Coma Score: 18:55 Eye Response: spontaneous(4). Motor Response: obeys commands(6). Verbal Response: leonidas oriented(5). Total: 15. 23:05 Eye Response: spontaneous(4). Motor Response: obeys commands(6). Verbal Response: rg5 oriented(5). Total: 15. MDM: 18:44 Patient medically screened. leonidas 18:55 Data reviewed: vital signs, nurses notes, lab test result(s), EKG, radiologic studies, leonidas CT scan, plain films. Consideration of Admission/Observation Escalation of care including admission/observation considered. I considered the following discharge prescriptions or medication management in the emergency department Medications were administered in the Emergency Department. See MAR. Independent interpretation of the following test(s) in the Emergency Department EKG: See my EKG interpretation above. Test considered but Not performed: MRI: NO MRI BRAIN. Historians other than the Patient: Family Member: FAMILY WELL INFORMED. Care significantly affected by the following chronic conditions: Hypertension. Counseling: I had a detailed discussion with the patient and/or guardian regarding the historical points, exam findings, and any diagnostic results supporting the discharge/admit diagnosis, the presence of at least one elevated blood pressure reading (>120/80) during this emergency department visit, lab results, radiology results. 22:12 ED course: CT - EXAM DESCRIPTION: CT - Head Brain [facility] - 08/25/2023 9:28 pm CLINICAL sp4 HISTORY: HEADACHE COMPARISON: No comparisons TECHNIQUE: Noncontrast head CT images were obtained without IV contrast. Multiplanar reformats were generated and reviewed. All CT scans are performed using dose optimization technique as appropriate and may include automated exposure control or mA/KV adjustment according to patient size. FINDINGS: No intracranial hemorrhage, mass, or edema. Midline structures are unremarkable. Normal ventricular caliber for age. Reis-white matter differentiation is preserved, without evidence of acute infarct. No abnormal extra-axial fluid collections. Mastoid air cells and visualized portions of the paranasal sinuses are clear. No acute bony findings. IMPRESSION: No evidence of an acute intracranial process. . ED course: EXAM DESCRIPTION: - CP - 08/25/2023 8:05 pm CLINICAL HISTORY: DIZZINESS COMPARISON: No comparisons TECHNIQUE: Real-time sonographic grayscale, color duplex, and spectral wave Doppler evaluation of both carotid systems was performed. FINDINGS: Normal high resistance waveforms are noted in both external carotid arteries. The common carotid arteries and internal carotid arteries show normal low resistance waveforms. No significant plaque formation is seen. Peak systolic velocity less than 125 cm/ sec bilaterally. ICA/CCA peak systolic ratios less than 2.0 bilaterally. Antegrade flow seen in both vertebral arteries. IMPRESSION: No significant atherosclerotic changes noted. No evidence of a hemodynamically significant stenosis. . 22:14 ED course: EXAM DESCRIPTION: RADChest Single View08/25/2023 7:19 pm CLINICAL HISTORY: sp4 Cough;Chest pain COMPARISON: No comparisons TECHNIQUE: Portable AP view of the chest. FINDINGS: The lungs are clear. No pneumothorax or effusion. The cardiomediastinal contours are unremarkable. IMPRESSION: No acute cardiopulmonary process. . 22:41 ED course: EXAM DESCRIPTION: CT - Angio Aorta For Dissection - 08/25/2023 9:28 pm sp4 CLINICAL HISTORY: Nausea / vomiting;Pain;Dissection COMPARISON: Abdomen Pelvis W/Wo Contrast dated 07/05/2023 TECHNIQUE: Thin axial CT images of the chest, abdomen, and pelvis were obtained during administration of 100mL Isovue 370 IV contrast. Sagittal and coronal reconstructions as well as maximal intensity projection reconstruction were generated and reviewed per an aortic angiography protocol. All CT scans are performed using dose optimization technique as appropriate and may include automated exposure control or mA/KV adjustment according to patient size. FINDINGS: Aorta is normal in diameter with no dissection or other acute aortic findings. Variant anatomy with the left vertebral artery arising from the left subclavian artery first segment. Reconstruction images show no significant findings. Pulmonary artery evaluation is limited due to suboptimal contrast timing. No mass or infiltrate in the lung parenchyma. No pleural thickening, pleural effusion or pneumothorax. No abnormal mediastinal or hilar mass or lymphadenopathy seen. No chest wall mass or abnormal axillary lymphadenopathy. Celiac, SMA and renal arteries show no suspicious findings. Colonic diverticulosis. Solid abdominal viscera and bowel show no significant findings. No mass or abnormal lymphadenopathy. IMPRESSION: No acute abnormalities on CT angiogram of the aorta. No other acute findings on chest, abdomen and pelvis examination. Colonic diverticulosis. . 23:02 Differential diagnosis: cluster headache, migraine, tension headache, vasomotor sp4 headache. 23:03 ED course: Orthostatic pressures are negative. Patient stable for discharge home. Blood sp4 pressure is on the higher side however will advise follow-up with sole tier and to continue home medications without any increase in the dose at this time.. 08/24 18:46 Order name: Basic Metabolic Panel; Complete Time: 21:29 [facility] 08/24 18:46 Order name: CBC with Diff; Complete Time: 21:29 leonidas 08/24 18:46 Order name: LFT's; Complete Time: 21:29 leonidas 08/24 18:46 Order name: Magnesium; Complete Time: 21:29 [facility] 08/24 18:46 Order name: NT PRO-BNP; Complete Time: 21:29 [facility] 08/24 18:46 Order name: PT-INR; Complete Time: 21:29 leonidas 08/24 18:46 Order name: Troponin HS; Complete Time: 21:29 [facility] 08/24 18:46 Order name: Lipase; Complete Time: 21:29 [facility] 08/24 18:46 Order name: Urinalysis w/ reflexes; Complete Time: 20:31 08/24 18:46 Order name: XRAY Chest (1 view); Complete Time: 20:13 [facility] 08/24 18:46 Order name: CT Head Brain wo Cont; Complete Time: 22:41 [facility] 08/24 18:46 Order name: CT Aorta for Dissection; Complete Time: 22:41 leonidas 08/24 19:24 Order name: US Carotid Artery Bilateral; Complete Time: 21:29 [facility] 08/24 18:46 Order name: EKG; Complete Time: 18:46 [facility] 08/24 18:46 Order name: Cardiac monitoring; Complete Time: 19:38 [facility] 08/24 18:46 Order name: EKG - Nurse/Tech; Complete Time: 19:38 [facility] 08/24 18:46 Order name: IV Saline Lock; Complete Time: 21:19 [facility] 08/24 18:46 Order name: Labs collected and sent; Complete Time: 21:19 [facility] 08/24 18:46 Order name: O2 Per Protocol; Complete Time: 21:19 [facility] 08/24 18:46 Order name: O2 Sat Monitoring; Complete Time: 21:19 [facility] EC:38 Rate is 66 beats/min. Rhythm is regular. QRS [place] is Normal. SC interval is normal. QRS leonidas interval is normal. QT interval is normal. No Q waves. T waves are Normal. No ST changes noted. Clinical impression: Normal ECG and No evidence of ischemia. Interpreted by me. Reviewed by me. Administered Medications: 20:33 Drug: Meclizine PO 50 mg PO once Route: PO; rg5 23:01 Follow up: Response: No adverse reaction rg5 20:34 Drug: NS 0.9% IV 1000 ml IV at 125 ml/hr continuous Route: IV; Rate: 125 ml/hr; Site: rg5 left forearm; 23:02 Follow up: Response: No adverse reaction; IV Status: Completed infusion; IV Intake: rg5 1000ml 20:34 Drug: foLIC Acid IVPB 1 mg IVPB once Route: IVPB; Site: left forearm; rg5 23:02 Follow up: Response: No adverse reaction rg5 23:03 Follow up: IV Status: Completed infusion rg5 21:18 CANCELLED (spoke withcurrent provider and instructed to cancel. based on current BP rg5 will not treat.): olmesartan 20 mg PO once 22:00 Drug: Aspirin PO Chewable Tablet 162 mg PO once; give if ct head is NEGATIVE Route: PO; rg5 23:00 Follow up: Response: No adverse reaction rg5 Disposition Summary: 08/25/23 22:59 Discharge Ordered Notes: Location: Home sp4 Problem: new sp4 Symptoms: have improved sp4 Condition: Stable sp4 Diagnosis - Essential (primary) hypertension sp4 - Dizziness and giddiness sp4 - Strain of muscle and tendon of back wall of thorax, initial encounter sp4 - Acute stress reaction - anxiety sp4 Followup: leonidas - With: Private Physician - When: 2 - 3 days - Reason: Recheck today's complaints, Continuance of care, Re-evaluation by your physician Followup: leonidas - With: Sudhir Cohen MD - When: 2 - 3 days - Reason: Recheck today's complaints, Re-evaluation by your physician Followup: leonidas - With: Trip Willingham MD - When: 2 - 3 days - Reason: Recheck today's complaints, Re-evaluation by your physician Discharge Instructions: - Discharge Summary Sheet leonidas - Dizziness leonidas Forms: - Patient Portal Instructions sp4 NIH Stroke Scale - NIH Stroke Score Date: 08/25/2023 Time: 19:26 Total Score = 0 10. Dysarthria (speech clarity - read or repeat words) - 0(Normal) 11. Extinction and Inattention (visual/tactile/auditory/spatial/personal) - 0(No abnormality) 1a. Level of Consciousness (LOC) - 0(Alert) 1b. Level of Consciousness (LOC) (Month \T\ Age) - 0(Both) 1c. LOC Commands (Open \T\ Closes Eyes/Physics Instructor) - 0(Both) 2. Best Gaze (Lateral Gaze Paresis) - 0(Normal) 3. Visual Field Loss - 0(No visual loss) 4. Facial Palsy - 0(Normal) 5a. Left Arm: Motor (10-second hold) - 0(No drift) 5b. Right Arm: Motor (10-second hold) - 0(No drift) 6a. Left Leg: Motor (5-second hold - always test supine) - 0(No drift) 6b. Right Leg: Motor (5-second hold - always test supine) - 0(No drift) 7. Limb Ataxia (finger/nose \T\ heel/[place] - test with eyes open) - 0(Absent) 8. Sensory Loss (pinprick arms/legs/face) - 0(Normal) 9. Best Language: Aphasia (description/naming/reading) - 0(No aphasia) Initials: [facility] Signatures: Dispatcher [employer] EDLeonel Rubalcava MD MD cha Slawson, Ashby, RN RN as6 Viktor Erickson MD MD sp4 Landon Gimenez RN RN rg5 Corrections: (The following items were deleted from the chart) 19:25 19:24 Carotid Artery Bilateral+US.RAD.BRZ ordered. EDMS EDMS 21:18 20:38 olmesartan 20 mg PO once ordered. [facility] rg5
--- NOTE | 2023-08-25 23:00 | ER ---
Nurse's Notes [facility] Name: Mariah Oswald Age: 63 yrs Sex: Female : 1960 Arrival Date: 08/25/2023 Time: 18:39 Bed 5 Private MD: Diagnosis: Essential (primary) hypertension;Dizziness and giddiness;Strain of muscle and tendon of back wall of thorax, initial encounter;Acute stress reaction-anxiety Presentation: 08/24 19:05 Chief complaint: Patient states: high blood pressure, dizziness, headache. Coronavirus as6 screen: At this time, the client does not indicate any symptoms associated with coronavirus-19. Ebola Screen: No symptoms or risks identified at this time. Initial Sepsis Screen: Does the patient meet any 2 criteria? No. Patient's initial sepsis screen is negative. Does the patient have a suspected source of infection? No. Patient's initial sepsis screen is negative. Risk Assessment: Do you want to hurt yourself or someone else? Patient reports no desire to harm self or others. Onset of symptoms was August 25, 2023. 19:05 Method Of Arrival: Ambulatory as6 19:05 Acuity: YVONNE 3 as6 Triage Assessment: 23:19 Pain: Also complains of. rg5 Historical: - Allergies: 19:06 Sulfa (Sulfonamide Antibiotics); as6 - PMHx: 19:06 GERD; Hypertensive disorder; as6 - PSHx: 19:06 section; Ligation of fallopian tube; breast ca; as6 - Immunization history:: Adult Immunizations up to date. - Infectious Disease History:: Denies. - Family history:: not pertinent. - Social history:: Smoking status: Patient denies any tobacco usage or history of. Screenin:05 [facility] ED Fall Risk Assessment (Adult) History of falling in the last 3 months, rg5 including since admission No falls in past 3 months (0 pts) Confusion or Disorientation No (0 pts) Intoxicated or Sedated No (0 pts) Impaired Gait No (0 pts) Mobility Assist Device Used No (0 pt) Altered Elimination No (0 pt) Score/Fall Risk Level 0 - 2 = Low Risk Oriented to surroundings, Maintained a safe environment, Educated pt \T\ family on fall prevention, incl call for assistance when getting out of bed. Abuse screen: Denies threats or abuse. Nutritional screening: No deficits noted. Tuberculosis screening: No symptoms or risk factors identified. Assessment: 19:54 General: Appears in no apparent distress. Behavior is calm, cooperative, appropriate rg5 for age, Reports Denies. Pain: Denies pain. Complains of pain in head Pain currently is 5 out of 10 on a pain scale. Neuro: Oriented to person, place, time, situation. Cardiovascular: Patient's skin is warm and dry. Respiratory: Breath sounds are clear. GI: No signs and/or symptoms were reported involving the gastrointestinal system. : No signs and/or symptoms were reported regarding the genitourinary system. 21:44 Reassessment: Patient is alert, oriented x 3, equal unlabored respirations, skin rg5 warm/dry/pink. Patient states symptoms have improved. 23:04 General: Appears in no apparent distress. comfortable, Behavior is calm, cooperative. rg5 Neuro: No deficits noted. Cardiovascular: No deficits noted. Respiratory: Airway is patent Trachea midline. Vital Signs: 19:05 BP 173 / 87; Pulse 62; Resp 18; Temp 97.4; Pulse Ox 98% on R/A; Weight 65.32 kg; Height as6 5 ft. 3 in. ; Pain 0/10; 20:39 BP 167 / 82; Pulse 62; Resp 18; Temp 97.9; Pulse Ox 98% on R/A; rg5 21:40 BP 153 / 75; Pulse 60; Resp 17; Temp 97.9; Pulse Ox 100% on R/A; Pain 3/10; rg5 22:59 BP 172 / 87 Supine; Pulse 60; cp4 22:59 BP 174 / 92 Sitting; Pulse 60; cp4 22:59 BP 171 / 107 Standing; Pulse 60; cp4 23:05 BP 155 / 94; Pulse 60; Resp 18; Temp 97.9; Pulse Ox 99% ; Pain 0/10; rg5 19:05 Body Mass Index 25.51 (65.32 kg, 160.02 cm) as6 19:05 Pain Scale: Adult as6 21:40 Pain Scale: Adult rg5 23:05 Pain Scale: Adult rg5 Sindhu Coma Score: 18:55 Eye Response: spontaneous(4). Motor Response: obeys commands(6). Verbal Response: leonidas oriented(5). Total: 15. 23:05 Eye Response: spontaneous(4). Motor Response: obeys commands(6). Verbal Response: rg5 oriented(5). Total: 15. NIH Stroke Scale Scores: 19:26 NIHSS Score: 0 leonidas ED Course: 18:42 Patient arrived in ED. im 18:44 Leonel Alvarez MD is Attending Physician. leonidas 19:06 Triage completed. as6 19:07 Arm band placed on. as6 19:21 XRAY Chest (1 view) In Process Unspecified. EDMS 19:45 Inserted saline lock: 20 gauge in left forearm, using aseptic technique. Blood rg5 collected. 20:07 US Carotid Artery Bilateral In Process Unspecified. EDMS 20:09 Landon Gimenez, CHARLINE is Primary Nurse. rg5 20:13 Attending Physician role handed off by Leonel Alvarez MD sp4 20:13 Viktor Erickson MD is Attending Physician. sp4 20:20 Urinalysis w/ reflexes Sent. vk 21:30 CT Head Brain wo Cont In Process Unspecified. EDMS 21:30 CT Aorta for Dissection In Process Unspecified. EDMS 22:58 Sudhir Cohen MD is Referral Physician. sp4 22:58 Trip Willingham MD is Referral Physician. sp4 23:05 Patient has correct armband on for positive identification. Placed in gown. Bed in low rg5 position. Call light in reach. Side rails up X 1. Adult w/ patient. Provided Education on: post ER care. Client placed on continuous cardiac and pulse oximetry monitoring. NIBP monitoring applied. panel monitor on. Pulse ox on. NIBP on. Door closed. Noise minimized. Warm blanket given. Pillow given. Verbal reassurance given. Head of bed elevated. 23:05 No provider procedures requiring assistance completed. IV discontinued, intact, rg5 bleeding controlled, No redness/swelling at site. Pressure dressing applied. Administered Medications: 20:33 Drug: Meclizine PO 50 mg PO once Route: PO; rg5 23:01 Follow up: Response: No adverse reaction rg5 20:34 Drug: NS 0.9% IV 1000 ml IV at 125 ml/hr continuous Route: IV; Rate: 125 ml/hr; Site: rg5 left forearm; 23:02 Follow up: Response: No adverse reaction; IV Status: Completed infusion; IV Intake: rg5 1000ml 20:34 Drug: foLIC Acid IVPB 1 mg IVPB once Route: IVPB; Site: left forearm; rg5 23:02 Follow up: Response: No adverse reaction rg5 23:03 Follow up: IV Status: Completed infusion rg5 21:18 CANCELLED (spoke withcurrent provider and instructed to cancel. based on current BP rg5 will not treat.): olmesartan 20 mg PO once 22:00 Drug: Aspirin PO Chewable Tablet 162 mg PO once; give if ct head is NEGATIVE Route: PO; rg5 23:00 Follow up: Response: No adverse reaction rg5 Medication: 23:05 VIS not applicable for this client. rg5 Intake: 23:02 IV: 1000ml; Total: 1000ml. rg5 Outcome: 22:59 Discharge ordered by . spMaximus 23:05 Discharged to home ambulatory, rg5 23:05 Condition: improved 23:05 Discharge instructions given to patient, family, Instructed on discharge instructions, follow up and referral plans. medication usage, safety practices, Demonstrated understanding of instructions, follow-up care, medications, 23:19 Patient left the ED. rg5 NIH Stroke Scale - NIH Stroke Score Date: 08/25/2023 Time: 19:26 Total Score = 0 10. Dysarthria (speech clarity - read or repeat words) - 0(Normal) 11. Extinction and Inattention (visual/tactile/auditory/spatial/personal) - 0(No abnormality) 1a. Level of Consciousness (LOC) - 0(Alert) 1b. Level of Consciousness (LOC) (Month \T\ Age) - 0(Both) 1c. LOC Commands (Open \T\ Closes Eyes/Medication Assistant) - 0(Both) 2. Best Gaze (Lateral Gaze Paresis) - 0(Normal) 3. Visual Field Loss - 0(No visual loss) 4. Facial Palsy - 0(Normal) 5a. Left Arm: Motor (10-second hold) - 0(No drift) 5b. Right Arm: Motor (10-second hold) - 0(No drift) 6a. Left Leg: Motor (5-second hold - always test supine) - 0(No drift) 6b. Right Leg: Motor (5-second hold - always test supine) - 0(No drift) 7. Limb Ataxia (finger/nose \T\ heel/[place] - test with eyes open) - 0(Absent) 8. Sensory Loss (pinprick arms/legs/face) - 0(Normal) 9. Best Language: Aphasia (description/naming/reading) - 0(No aphasia) Initials: [facility] Signatures: Dispatcher [employer] Leonel Jackson MD MD cha Slawson, Ashby, CHARLINE RN as6 Viktor Erickson MD MD sp4 Jaz Higuera Christina cp4 Luisa Lopes Rommel, RN RN rg5
[2023-08-25 23:28] VITALS: BP 155/94; TEMP 97.9; O2SAT 99
--- NOTE | 2023-08-29 15:05 | EKG ---
Test Date: 2023-08-25 Test Time: 19:34:57 Planning Coordinator: HOA MEASUREMENT RESULTS: Intervals: Rate: 66 [place]: 144 QRSD: 74 QT: 434 QTc: 454 [place]: P: 42 [place]: 144 QRS: -8 T: 57 INTERPRETIVE STATEMENTS: Normal sinus rhythm Septal infarct, age undetermined Abnormal ECG No previous ECG available for comparison Electronically Signed On 08-29-23 14:55:16 CDT by Trip Willingham
== END 2023-08-25 23:19 | disposition home or self-care (01) ==
LOC: ER 18:39
DX: I10 Essential (primary) hypertension (principal); F43.0 Acute stress reaction; F41.9 Anxiety disorder, unspecified; S29.012A Strain of muscle and tendon of back wall of thorax, initial encounter; R42 Dizziness and giddiness
CPT/HCPCS: 96365; 93005; 85025; 81001; 80048; 36415; 83735; 85610; 80076; 84484; 83690; 83880; 70450; 71275; 74175; 71045; 93880; 99285; 96366; Q9967; J8597; J7030

== ENCOUNTER 2023-12-28 09:08 | Emergency (ER) | payer OTHER ==
--- OUTSIDE RECORDS SUMMARY | 2023-12-28 09:12 | XMS REPORT | Continuity of Care Document ---
Author Name Unknown Address [address] [facility] [address] [place] [address] [facility] Address [address] [facility] [place] [address] Care Team Providers Care Fruit Bar Maker Name Role Phone Dora Vides NP Primary Care Physician [phone] Kamaljit Delgado Attending Clinician Unavailable Melodie Boucher Attending Clinician Unavailable Doctor Unassigned, [place] Attending Clinician U navailable TOMMY RODRIGUEZ Attending Clinician Unavailable Tommy Rodriguez MD Attending Clinician [phone] Jarod JUSTICE Attending Clinician Unavailable Jarod Tinajero Attending Clinician [phone] MELODIE BOUCHER Attending Clinician UnavailZechariah Gannon Admitting Clinician Unavailable Physician, No Primary or Family Admitting Clinic cam Unavailable TOMMY RODRIGUEZ Admitting Clinician Unavailable Jraod JUSTICE Admitting Clinician Unavailable Payers Payer Name Policy Type Policy Number Effective Date Expirati on Date Source Problems Condition Name Condition Details Condition Category Status Onset Date Resolution Date Last Treatment Date Treating Clinician Comments Source Syncope and collapse Syncope and collapse Disease Active 2022-03 00:00: 00 [facility] Senile osteoporos is Senile osteoporos is Disease Active 12-05 00:00: 00 [facility] Back pain Back pain Disease Active 12-05 00:00: 00 [facility] Personal history of other diseases of digestive system Personal history of other diseases of digestive system Disease Active 12-05 00:00: 00 [facility] Generalize d osteoarthr osis of hand Generalize d osteoarthr osis of hand Disease Active 12-05 00:00: 00 Overview: Formattin g of this note might be different from the original. ICD10 Diagnosis Term Annual Giving Manager Utility [facility] Allergies, Adverse Reactions, Alerts Allergy Name Allergy Type Status Severity Reaction(s) Onset Date Inactive Date Treating Clinician Comments Source TAPE (SURGICA L) DA Active [place] BLISTERS 08-20 00:00: 00 [facility] Sulfa (Sulfona mide Antibiot ics) DA Active MO 2018-03 00:00: 00 [facility] Sulfa (Sulfona mide Antibiot ics) DA Active [place] RASH 2018-03 00:00: 00 [facility] SULFA (SULFONA MIDE ANTIBIOT ICS) Drug Class Active Rash 12-05 00:00: 00 [facility] Sulfa (Sulfona mide Antibiot ics) Propensi ty to adverse reaction s Active Rash 12-05 00:00: 00 [facility] Social History Social Habit Start Date Stop Date Quantity Comments Source Sexual [facility] Cigarette pack-years 2023-01-18 00:00:00 2023-01-18 00:00:00 [facility] Tobacco use and exposure 2023-01-18 00:00:00 2023-01-18 00:00:00 Smokeless tobacco non-user [facility] Alcohol intake 2023-01-18 00:00:00 2023-01-18 00:00:00 Current drinker of alcohol (finding) [facility] History of Social function 2023-01-18 00:00:00 2023-01-18 00:00:00 [facility] Tobacco Comment 2023-01-18 00:00:00 2023-01-18 00:00:00 1 pack per week [facility] Cigarettes smoked current (pack per day) - Reported 2023-01-18 00:00:00 2023-01-18 00:00:00 [facility] History of tobacco use 2012-08-04 00:00:00 Cigarette Smoker [facility] Sex Assigned At 1960 00:00:00 1960 00:00:00 [facility] Smoking Status Start Date Stop Date Source Ex-smoker 2023-01-18 00:00:00 2023-01-18 [facility] Ordered Medication Name Filled Medication Name Start Date Stop Date Current Medication? Ordering Clinician Indication Dosage Frequency Signature (SIG) Comments Components Source sulfur hexafluorid e microsphr (LUMASON) injection 5 mL 2022-03 17:30: 00 02-11 17:18 :00 No [id number] 5mL 5 mL, Intravenou s, ONCE, 1 dose, On Tue02/11/23 at 1130, Routine
infantry indirect fire crewmember approving Restricted medication : REJI MONAHAN [facility] ketorolac (TORADOL) injection 15 mg 2022-03 01:15: 00 01-18 00:13 :00 No 15mg 15 mg, Slow IV Push, ONCE, 1 dose, On Tue01/17/23 at 1915, ANTONIO [facility] ipratropium -albuteroL (DUONEB) 0.5 mg-3 mg(2.5 mg base)/3 mL nebulizer solution 3 mL 2022-03 00:15: 00 01-17 23:18 :00 No 3mL 3 mL, Inhalation , ONCE, 1 dose, On Tue01/17/23 at 1815, Routine [facility] azithromyci n (ZITHROMAX) tablet 500 mg 2022-03 23:15: 00 01-17 23:19 :00 No 500mg 500 mg, Oral, ONCE, 1 dose, On Tue01/17/23 at 1715, ANTONIO
Re ason for Anti-Infec tive: Documented Infection< br>Documen isa Infection Site: Respirator y
Durat ion of Therapy: Other (see Comments) [facility] cefTRIAXone (ROCEPHIN) 1,000 mg in NaCl 0.9% (NS) 100 mL MINI-BAG 2022-03 23:15: 00 01-17 23:50 :00 No 1000mg 1,000 mg, IV Piggyback, ONCE, 1 dose, On Tue01/17/23 at 1715, Administer over 30 Minutes, 100 mL
Reas on for Anti-Infec tive: Documented Infection< br>Documen isa Infection Site: Respirator y
Durat ion of Therapy: Other (see Comments) [facility] NaCl 0.9% (NS) bolus infusion 1,000 mL 2022-03 22:30: 00 01-17 23:19 :00 No 1000mL at 999 mL/hr, 1,000 mL, IV Infusion, ONCE, 1 dose, On Tue01/17/23 at 1630, STAT [facility] azithromyci n (ZITHROMAX Z-VAN) 250 mg tablet 2022-03 00:00: 00 Yes [id number] 250mg Take 1 tablet by mouth SEE-INSTRU CTIONS. Take 500 mg day 1, then 250 mg days 2 to 5. [facility] benzonatate 200 mg capsule 2022-03 00:00: 00 Yes [id number] 200mg Take 1 capsule by mouth 3 (three) times daily as needed for Cough for up to 20 doses. [facility] VITAMIN D 2,000 UNIT ORAL CAP 2012-03 09:15: 46 Yes daily. [facility] ascorbic acid (VITAMIN C) 500 mg tablet 2012-03 09:15: 46 Yes 500mg Take 500 mg by mouth daily. [facility] Vital Signs Vital Name Observation Time Observation Value Comments S linda Systolic blood pressure 2023-01-18 20:17:00 126 mm[Hg] [facility] Diastolic blood pressure 2023-01-18 20:17:00 84 mm[Hg] [facility] Heart rate 2023-01-18 20:17:00 89 /min [facility] Respiratory rate 2023-01-18 20:10:00 18 /min [facility] Body height 2023-01-18 20:10:00 160 cm [facility] Body weight 2023-01-18 20:10:00 69.446 kg [facility] BMI 2023-01-18 20:10:00 27.12 kg/m2 [facility] Oxygen saturation in Arterial blood by Pulse oximetry 2023-01-18 20:10:00 96 /min [facility] Systolic blood pressure 2023-01-18 02:07:00 137 mm[Hg] [facility] Diastolic blood pressure 2023-01-18 02:07:00 80 mm[Hg] [facility] Heart rate 2023-01-18 02:07:00 84 /min [facility] Respiratory rate 2023-01-18 02:07:00 20 /min [facility] Oxygen saturation in Arterial blood by Pulse oximetry 2023-01-18 02:07:00 99 /min [facility] Body temperature 2023-01-18 00:21:00 37.28 Makayla [facility] Body height 2023-01-17 21:09:00 160 cm [facility] Body weight 2023-01-17 21:09:00 68.493 kg [facility] BMI 2023-01-17 21:09:00 26.75 kg/m2 [facility] Procedures Procedure Date / Time Performed Performing Clinician Source TRANSTHORACIC ECHO (TTE) COMPLETE W/ CONTRAST 2023-02-11 17:35:00 Tommy Rodriguez [facility] D-DIMER 2023-01-18 00:08:00 Jarod Justice [facility] HB ECG ROUTINE & RHYTHM STRIP 2023-01-17 22:12:32 Jarod Justice [facility] MAGNESIUM 2023-01-17 21:45:00 Jarod Justice [facility] TROPONIN I 2023-01-17 21:45:00 Jarod Justice [facility] COMP. METABOLIC PANEL (38862) 2023-01-17 21:45:00 Jarod Justice [facility] CBC WITH DIFF 2023-01-17 21:45:00 Jarod Justice [facility] URINALYSIS 2023-01-17 21:45:00 Jarod Justice [facility] RAPID INFLUENZA A/B 2023-01-17 21:45:00 Jarod Justice [facility] N-TERMINAL PRO-BNP 2023-01-17 21:45:00 Jarod Justice [facility] COVID-19 (ID NOW RAPID TESTING) 2023-01-17 21:45:00 Jarod Justice [facility] XR CHEST 1 VW 2023-01-17 21:31:55 Jarod Justice [facility] Encounters Start Date/Time End Date/Time Encounter Type Admission Type Attending Clinicians Care Facility Care Department Encounter ID Source 2019-08-23 10:00:00 Inpatient Kamaljit Becerra [facility] DAYS [id number] [facility] 2019-08-21 11:30:00 Inpatient Kamaljit Becerra [facility] OUTD [id number] [facility] 2019-06-13 00:03:00 Inpatient Melodie Gonzalez [facility] PHYT [id number] [facility] 2019-05-15 14:51:00 Inpatient Melodie Gonzalez [facility] PHYT [id number] [facility] 2023-03-31 00:00:00 2023-03-31 00:00:00 Patient Secure Msg Doctor Unassigned, [place] [facility] [id number] [id number] [id number] [facility] 2023-02-11 10:51:29 2023-02-11 23:59:00 [facility] [id number] [facility] 2023-02-11 10:51:29 2023-02-11 23:59:00 Hospital Encounter Ila [facility] [id number] 350.1.13.10 4.2.7.2.686 [id number] [facility] 2023-01-18 14:00:00 2023-01-18 14:30:00 Office Visit Ila [facility] [id number] 350.1.13.10 4.2.7.2.686 [id number] [facility] 2023-01-18 14:00:00 2023-01-18 14:00:00 [facility] [id number] [facility] 2023-01-17 15:00:00 2023-01-17 20:20:00 Emergency X Jarod JUSTICE [facility] ERT [id number] [facility] 2023-01-17 15:00:00 2023-01-17 20:20:00 Emergency Jarod Justice [facility] 1..840.114 350.1.13.10 4.2.7.2.686 [id number] [facility] 2019-11-29 12:00:00 2019-11-29 12:00:00 Outpatient MELODIE GONZALEZ [facility] HARIS [id number] 2019-08-24 09:15:00 2019-08-24 09:15:00 Outpatient Kamaljit Delgado [facility] [id number] [facility] 2019-08-21 12:22:00 2019-08-21 12:22:00 Outpatient Kamaljit Delgado [facility] [id number] [facility] Results Test Description Test Time Test Comments Results Result Co mments Source [id number] 01:18:30* Test Item Value Reference Range Interpretation Comments D-DIMER (test code = 6926964841) 0.41 See_Comment H [Automated message] The system [...] a diagnosis. Lab Interpretation (test code = 52418-5) Abnormal [facility] [id number] 22:55:29* Test Item Value Reference Range Interpretation Comme nts TROPONIN I (test code = 3847722830) 0.000 ng/mL <=0.034 KIRILL (test code = [...] of biotin. Lab Interpretation (test code = 15872-0) Normal [facility] [id number] 22:53:12* Test Item Value Reference Range Interpretation Comme nts NT-proBNP (test code = 34202-0) 39 pg/mL <=125 Lab Interpretation (test cod e = 39359-3) Normal [facility]OLIC PANEL (79027)2023-01-17 22:44:30* Test Item Value Reference Range Interpretation Comme nts NA (test code = 9353249514) 140 mmol/L 135-145 K (test code = 8840518729) 3.8 mmol/L 3.5-5.0 CL (test code = 7530813807) 104 mmol/L 98-108 CO2 TOTAL (test code = 7361144976) 22 mmol/L 23-31 L AGAP (test code = 6676262554) 14 2-16 BUN (test code = 1029995526) 15 mg/dL 7-23 GLUCOSE (test code = 3653165845) 109 mg/dL 70-110 CREATININE (test code = 1679272029) 0.95 mg/dL 0.50-1.04 TOTAL BILI (test code = 9555278523) 0.8 mg/dL 0.1-1.1 CALCIUM (test code = 5298680523) 9.2 mg/dL 8.6-10.6 T PROTEIN (test code = 3459748775) 7.8 g/dL 6.3-8.2 ALBUMIN (test code = 3077893475) 4.6 g/dL 3.5-5.0 ALK PHOS (test code = 4767555779) 70 U/L 34-122 ALTv (test code = 1742-6) 25 U/L 5-35 AST(SGOT) (test code = 0406987808) 23 U/L 13-40 eGFR (test code = 24356-0) 67.0 mL/min/1.73m2 CKD-EPI eGFR (2020). Assuming creatinine has been stable day-to-day for at least three months, the eGFR indicates Category G2 (60 - 89 mL/min/1.73 m2) Lab Interpretation (test code = 51500-0) [facility]normal [facility] 22:44:30* Test Item Value Reference Range Interpretation Comme nts MAGNESIUM (test code = 8870458287) 2.0 mg/dL 1.7-2.4 Lab Interpretation (test cod e = 83800-9) Normal [facility] WITH [id number] 22:34:08* Test Item Value Reference Range Interpretation [...] 33.7 g/dL 31.6-35.1 RDW-SD (test code = 60903-7) 43.8 fL 39.0-49.9 RDW-CV (test code = 788-0) 12.6 % 12.0-15.5 PLT (test code = 777-3) 220 See_Comment [Automated messa ge] The system which generated this result transmitted reference range: 166 - 358 10*3/?L. The reference range was not used to interpret this result as normal/abnormal. MPV (test code = 43591-3) 10.8 fL 9.5-12.9 NRBC/100 WBC (test code = 3208882794) 0.0 See_Comment [Automated VSS Monitoring ssage] The system which generated this result transmitted reference range: 0.0 - 10.0 /100 WBCs. The reference range was not used to interpret this result as normal/abnormal. NRBC x10^3 (test code = 7058960270) See_Comment [Automated messa ge] The system which generated this result transmitted reference range: 10*3/?L. The reference range was not used to interpret this result as normal/abnormal. GRAN MAT (NEUT) % (test code = 770-8) 87.8 % IMM GRAN % (test code = 2342577842) 0.40 % LYMPH % (test code = 736-9) 5.8 % MONO % (test code = 5905-5) 4.2 % EOS % (test code = 713-8) 1.6 % BASO % (test code = 706-2) 0.2 % GRAN MAT x10^3(ANC) (test code = 7810628544) 9.20 10*3/uL 1.88-7.09 H IMM GRAN x10^3 (test code = 8106807047) 0.04 10*3/uL 0.00-0.06 LYMPH x10^3 (test code = 731-0) 0.61 10*3/uL 1.32-3.29 L MONO x10^3 (test code = 742-7) 0.44 10*3/uL 0.33-0.92 EOS x10^3 (test code = 711-2) 0.17 10*3/uL 0.03-0.39 BASO x10^3 (test code = 704-7) 0.01-0.07 Lab Interpretation (test code = 78293-8) Abnormal [facility] Center[facility]AST,[id number] 11:42:00 RUN DATE: 08/29/19 [facility] PAGE 1 RUN TIME: 1239 Specimen Inquiry RUN USER: INTERFACE -------- ----PATIENT: ELIAN AMARO LOC: BARB U #: [id number] AGE/SX: 59/F ROOM: RE08/24/19REG DR:Kamaljit Delgado MD : 56 BED: DIS: STATUS: [facility] TLOC: SPEC #: [id number] RECD: 08/24/19 STATUS: LORI [facility] #: [id number] DAMIAN: 08/24/19- SUBM DR: Kamaljit Delgado MD ENTERED: 08/24/19 SP TYPE: MAYO MCFARLAND DR: ORDERED: LEVEL IV/2 CODES: [id number] - BREAST, NOS PROCEDURES: LEVEL IV (Incomplete) [...] breast parenchyma or malignancy identified CPT code(s): 39968 x2 ls/wpd GROSS DESCRIPTION ANATOMIC SOURCE OF [...] half of the specimen is inked black. Margin Analyst sections are submitted labeled A1 and A2. Specimen #2 is designated "LEFT breast tissue" and consists of a 7.3 x 2.2 x 0.8 cm orantes-pink portion of skin. The epidermal surface is wrinkled. One half of the specimenis inked blue. One half of the specimen is inked black. Margin Analyst sections are submitted labeled B1 and B2. nico 08/24/19 CONTINUED ON NEXT PAGE RUN DATE: 08/29/19 [facility] PAGE 2 RUN TIME: 1239 Specimen Inquiry RUN USER: INTERFACE SPEC #: [id number] PATIENT: ELIAN AMARO #[id number] (Continued) Signed Grace Corarles MD 08/27/19 1142 END OF REPORT Novel Coronavirus 2019 [id number] 20:07:00* Test Item Value Reference Range Interpretation Comme nts Novel Coronavirus 2019 Inh se (test code = COVNONPUI) Negative Negative Novel Coronavirus 2019 [id number] 20:07:00* Test Item Value Reference Range Interpretation Comme [facility] Novel Coronavirus 2019 Inh se (test code = COVNONPUI) Negative Negative CHEMISTRY 7 [id number] 12:25:00* Test Item Value Reference Range Interpretation [...] CA) 9.3 mg/dL 8.4-10.2 N CBC W/AUTO [id number] 12:09:00* Test Item Value Reference Range Interpretation [...] REQUIRED (test code = PLTMR) NORMAL NORMAL BREAST,[id number] 11:28:00 RUN DATE: 03/13/19 [facility] PAGE 1 RUN TIME: 1146 Specimen Inquiry RUN USER: INTERFACE -------- ----PATIENT: ELIAN AMARO LOC: PAM #: [id number] AGE/SX: 58/F ROOM: [facility] RE03/05/19REG DR: Kamaljit Delgado MD : 56 BED: A DIS: 03/09/19 STATUS: DIS IN TLOC: SPEC #: [id number] RECD: 03/05/19 STATUS: LORI [place] #: [id number] DAMIAN: 03/05/19- [facility] DR: Melodie Boucher MD ENTERED: 03/05/19 SP TYPE: KAMILAX BARTOLO DR: ORDERED: LEVEL IV/6, FROZEN SECTION, FROZEN ADD/2 CODES: [id number] - BREAST, NOS PROCEDURES: LEVEL IV (Incomplete) [...] - several foci of microinvasive carcinoma identified, [place] grade 2 - margins - no tumor [...] Specimen Inquiry RUN USER: INTERFACE SPEC #: [id number] PATIENT: ELIAN AMARO #[id number] (Continued) FINAL DIAGNOSIS (Continued) - fibrocystic change [...] The following technical components were performed at [facility], [address] [place] [address], [address], [place] [address]. The interpretation is provided by [facility], [facility], [place] [address]. Positive and/or negative controls received from [facility] stained appropriately. RESULTS: SMM-HC (blocks A5, A6, and A7) - absent in microinvasive carcinoma areas (A5). P63 - (blocks A5, A6, and A7) - absent in microinvasive carcinoma areas (A5). Pancytokeratin (blocks A15, C1, C2, C3, C4 and C5) - negative for metastatic carcinoma. Prognostic markers - (block A4) - see below The following results are received from [facility], [place], [place] on March 11, 2019. BODY SITE: RIGHT breast - 82OA-1114-M1 PROGNOSTIC / PREDICTIVE MARKERS Histology Image Analysis, Global IHC Quantitative Breast Panel ER: POSITIVE Tumor Stained: 95% Intensity: 3+ Internal Control: Present, positive Riaz Score: 8 PgR: POSITIVE Tumor Stained: 5% Intensity: 1+ Internal Control: Present, positive Riaz Score: 3 CONTINUED ON NEXT PAGE RUN DATE: 03/13/19 [facility] PAGE 3 RUN TIME: 1146 Specimen Inquiry RUNUSER: INTERFACE SPEC #: [id number] PATIENT: ELIAN AMARO MARIELA #[id number] (Continued) FINAL DIAGNOSIS (Continued) HER2 Breast: NEGATIVE [...] ductal carcinoma) - Microinvasive carcinoma Histologic Grade ([place]eno Histologic Score): Glandular (Acinar)/Tubular Differentiation: - Score 3 Nuclear Pleomorphism: - Score 2 Mitotic Rate: - Score 1 Overall Grade: CONTINUED ON NEXT PAGE RUN DATE: 03/13/19 [facility] PAGE 4 RUN TIME: 1146 Specimen Inquiry RUN USER: INTERFACE SPEC #: [id number] PATIENT: ELIAN AMARO #[id number] (Continued) -- FINAL DIAGNOSIS (Continued) - Grade [...] of Lymph Nodes Examined: 6 Number of [place] Nodes Examined: 5 TreatmentEffect: - No known presurgical therapy CONTINUED ON NEXT PAGE RUN DATE: 03/13/19 [facility] 5 RUN TIME: 1146 Specimen Inquiry RUN USER: INTERFACE SPEC #: [id number] PATIENT: ELIAN AMARO MARIELA #[id number] (Continued) FINAL DIAGNOSIS (Continued) Lymphovascular Invasion: - Not identified Pathologic Stage Classification (pTNM, AJCC 8th Edition): TNM Descriptors: - m (multiple foci of invasive carcinoma) Primary Tumor (pT): - pT1mi: Tumor <1 mm in greatest dimension Regional Lymph Nodes Modifier: - (sn): [place] node(s) evaluated Regional Lymph Nodes (pN): - pN0: No regional lymph node metastasis identified Distant Metastasis (pM): - Not assessed Ancillary Studies Breast Biomarker Testing Performed on the current RIGHT breast mastectomy specimen (03/05/19) Testing Performed on CPT code(s): 81168 x9, 29021 x2, 38922-20, 68737-96 x10, 29630, 62328 x2, 38211 pkjoey/ dre dt: 03/09/19 michelle/vikas 03/12/19 GROSS [...] Specimen Inquiry RUN USER: INTERFACE SPEC #: [id number] PATIENT: ELIAN AMARO #[id number] (Continued)----- ------- GROSS DESCRIPTION (Continued) Specimen #2 [...] inked blue. No gross lesion is noted. Margin Analyst sections are submitted labeled B1 throughB5. Specimen [...] Specimen Inquiry RUN USER: INTERFACE SPEC #: [id number] PATIENT: ELIAN AMARO #[id number] (Continued) GROSS DESCRIPTION (Continued) lymph node, C2 [...] approximately 1:4. No gross lesion is noted. Margin Analyst sections are submitted labeled D2 and D3 [...] inked red. No gross lesion is noted. Margin Analyst sections are submitted labeled E1 through E5. [...] Inquiry RUN USER: INTERFACE ------- -----SPEC #: [id number] PATIENT: ELIAN AMARO MARIELA #[id number] (Continued) MICROSCOPIC DESCRIPTION (Continued) Specimen #5 consists [...] 03/12/19 1128 END OF REPORT - NM [id number] 15:21:00Patient Name: ELIAN AMARO MARIELA Unit No: [id number] EXAMS: CPT CODE: [id number] NM LYMPHIMAG [id number] MEDICINE SENTINEL LYMPH NODE INJECTION IN THE RIGHT BREAST 03/05/2019. CLINICAL HISTORY: Right breast cancer. [place] lymph node mapping. FINDINGS: After a time [...] drainage localized to the right axilla. SL: [id number] Electronically Sign ed by VENKATESH Jerome on 03/07/2019 at 1521 Reported and signed by: VENKATESH Ledesma CC: Melodie Boucher MD Technologist: Blake Purvis Trnscrbd D/ (1521) [email or web address] Orig Print D/T: S: 03/07/2019 (1522) [facility] NAME: ELIAN AMARO MARIELA Rad iology Department PHYS: Melodie Cho MD [address] : 1960 AGE: 58 SEX: F [place], [place] [address] LOC: MELODY Mclean PHONE #: [phone] EXAM DATE: 03/05/2019 STATUS: ADM IN FAX #: [phone] RAD NO: [id number] Page 1 Signed ReportCBC W/AUTO [id number] 00:40:00* Test Item Value Reference Range Interpretation [...] (test code = PLTMR) NORMAL NORMAL WBC [id number] 00:40:00* Test Item Value Reference Range Interpretation [...] de = PLTMORPH) NORMAL NORMAL CHEMISTRY 7 [id number] 23:36:00* Test Item Value Reference Range Interpretation [...] code = CA) 7.2 mg/dL 8.4-10.2 L [id number] 23:36:00* Test Item Value Reference Range Interpretation Comme nts MAGNESIUM (test code = MAG) 1.6 mg/dL 1.8-2.4 L CBC W/AUTO [id number] 23:19:00* Test Item Value Reference Range Interpretation [...] REQUIRED (test code = PLTMR) NORMAL WBC [id number] 23:19:00* Test Item Value Reference Range Interpretation Comme nts SEGMENTED NEUTROPHILS (test code = SEG) % 56.5-79 .4 LYMPHOCYTE (test code = LYMPH) % 20-40 CBC W/AUTO [id number] 23:19:00* Test Item Value Reference Range Interpretation [...] REQUIRED (test code = PLTMR) NORMAL WBC [id number] 23:19:00* Test Item Value Reference Range Interpretation Comme nts SEGMENTED NEUTROPHILS (test code = SEG) % 56.5-79 .4 LYMPHOCYTE (test code = LYMPH) % 20-40 COMPREHENSIVE METABOLIC [id number] 06:18:00* Test Item Value Reference Range Interpretation [...] ALKP) 55 units/L 46-116 N CBC W/AUTO [id number] 11:14:00* Test Item Value Reference Range Interpretation [...] (test code = PLTMR) NORMAL NORMAL URINALYSIS [id number] 11:10:00* Test Item Value Reference Range Interpretation [...] MUCU) RARE NONE SEEN URINE SAMPLE: CLEAN CATCHELVER,[id number] 14:11:00 RUN DATE: 01/08/19 [facility] PAGE 1 RUN TIME: 1733 Specimen Inquiry RUN USER: INTERFACE --------- ---PATIENT: ELIAN AMARO MARIELA LOC: [facility] U #: [id number] AGE/SX: 58/F ROOM: RE01/03/19REG DR:Beckie Parks MD : 56 BED: DIS: STATUS: PRE REF TLOC: SPEC #: [id number] RECD: 01/03/19 STATUS: LORI REQ #: [id number] DAMIAN: 01/03/19- SUBM DR: Beckie Parks MD ENTERED: 01/04/19 SPTYPE: BREABX OTHR DR: Shannon Crabtree MD ORDERED: LEVEL IV CODES: [id number] - BREAST, NOS COPIES TO: Beckie Parks MD [address] [facility] [address] [place] [address] [place] [address] [place] [address] PROCEDURES: LEVEL IV (Incomplete) TISSUES: [...] The following technical components were performed at [facility], [address], [address], [place] [address]. The interpretation is provided by [facility], [address] [place] [address]. Positive and/or negative controlsreceived from [facility] stained appropriately. CONTINUED ON NEXT PAGE RUN DATE: 01/08/19 [facility] PAGE 2 RUN TIME: 1733 Specimen Inquiry RUN USER: INTERFACE SPEC #: [id number] PATIENT: ELIAN AMARO #[id number] (Continued) FINAL DIAGNOSIS (Continued) RESULTS: SMM-HC (block A1) - positive, surrounding tumor nests. P63 (block A1) - positive, surrounding tumor nests. CPT code(s): 82677, 08928-81, 67124-30 pkg/kr dt: 01/05/19 pkg/wpd 01/08/19 GROSS DESCRIPTION [...] DESCRIPTION The following results are received from [facility], [place], [place] on January 08, 2019. BODY SITE: RIGHT breast - [id number] HISTOLOGY IMAGE ANALYSIS, GLOBAL ER: POSITIVE Tumor Stained: 96% Intensity: 3+ Internal Control: Present, positive PgR: POSITIVE Tumor Stained: 4% Intensity: 2+ Internal Control: Present, positive COMMENT: Specimen handling met the requirements specified in the latest version of the ASCO/CAP guidelines. I acknowledge the above findings. Elian Correa M.D., Pathologist/ksr January 08, 2019 @ 0743 CONTINUED ON NEXT PAGE RUN DATE: 01/08/19 [facility] PAGE 3 RUN TIME: 1733 Specimen Inquiry RUN USER: INTERFACE SPEC #: [id number] PATIENT: ELIAN AMARO MARIELA #[id number] (Continued) Signed Elian Correa 01/08/19 1411 END OF REPORT Notes Date/Time Note Provider Source 2019-08-25 15:25:00 [id number] [facility] [place] [address] [place], [place] [address] PATIENT NAME: ELIAN AMARO ADMIT DATE: 08/24/19 ACCOUNT NO: [id number] ROOM NO: AGE: 59 SEX: F ADMITTING PHYSICIAN: ATTENDING PHYSICIAN: Kamaljit Delgado MD OPERATION DATE: 08/24/2019 PREOPERATIVE DIAGNOSES: 1. Bilateral acquired absence of the breast. 2. Personal history of breast cancer. 3. 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 4. Asymmetry of breast reconstruction. 5. Deformity of breast reconstruction. 6. Encounter for reconstruction after mastectomy. POSTOPERATIVE DIAGNOSES: 1. Bilateral acquired absence of the breast. 2. Personal history of breast cancer. 3. 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 4. Asymmetry of breast reconstruction. 5. Deformity of breast reconstruction. 6. Encounter for reconstruction after mastectomy. PROCEDURES PERFORMED: 1. Revision of right breast reconstruction, CPT 67897. 2. Revision of left breast reconstruction, CPT 77364. 3. Autologous fat grafting to bilateral breasts, 500 mL total, CPT 97880, 96759 x5. SURGEON: Kamaljit Delgado MD HAND CIGAR MAKER: Orly Knowles CSA. ANESTHESIA: General. INDICATIONS FOR PROCEDURE: Ms. Amaro is a 59-year-old woman, who is well known to me, who underwent a previous breast reconstruction in immediate setting after mastectomies with bilateral HAYDEN flaps. She has healed well from this, but she does have some of the typical postoperative asymmetry and deformity issues, mainly with superior step-off deformities on each side as well as slight asymmetry between the size and some just general differences in projection. She has some redness of her flap skin as well lateral to the nipple where her radial incisions were performed and along with this has slightly more amount of ptosis on the right. Additionally, on the right axilla and bra roll area, she has some deflation due to the mastectomy and a general absence of fat along with hypersensitivity and some excess skin due to deflation in that area as well. I PATIENT NAME: ELIAN AMARO saw the patient and obviously identified all these issues, but overall what she needs is resection of her flap skin bilaterally with an extension of that radial incision to excise some of the scar itself and also more extensive version on the right to help lift that lateral skin as well to take away some of the laxity. Secondly, she needs fat grafting of bilateral step off deformities as well as up on to the superior medial aspect of the chest to enhance the projection and fullness in that region and overall she needs more fat in the right breast as this appears to be just slightly smaller. I talked to the patient about the risks of the procedure such as infection, bleeding, hematoma, continued asymmetry and deformity and further need for revision. She has a fairly significant step-off deformity, so I am not sure I can fully correct that step-off deformity in one setting, but the future fat grafting if needed should be a smaller version of this. Overall, I think she is very happy with the size, but could be used to more fullness. DESCRIPTION OF PROCEDURE IN DETAIL: After informed consent was obtained, the patient was brought to the operating room and placed supine on the operating table. Anesthesia was induced. Timeout procedure was done and she was prepped and draped in normal sterile fashion. I began by instilling tumescent fluid into the abdomen and flanks as well as the medial and lateral thighs to a small degree, so that I had enough fat to inject. Allowed this tumescent fluid to set in place and then I performed suction-assisted lipectomy using a 4-mm basket tip cannula in those regions to suction and harvest fat. Fat was collected in the RevProfyle fat grafting system and prepared for injection on the back table. While fat was being processed on the back table, I began the right breast revision. I instilled some tumescent fluid in this area to help with hemostasis and then I marked the markings for the excision in an elliptical manner of not only the breast skin, but a small degree of the breast skin extending out laterally on to the chest wall to help with some of this tissue that was lax. So, I made an incision with a knife, dissected and created a full-thickness defect. I then advanced my superior and inferior breast flaps by undermining these with electrocautery and brought these flaps together to advance both of them towards each other and packed them into place initially closing with several layers with 2-0 and 3-0 Monocryl suture. At this point, I then turned my attention to the left breast and had a similar type of marking on the left breast, although it did not have to extend quite in this part of the left chest. So, I made that incision again in a full-thickness manner, creating defect, elevated my superior and inferior flaps and then brought them together and sutured them together with 2-0 and 3-0 Monocryl. Next, at this point now the fat was ready for injection. I injected fat into the right breast and then the left breast, injecting 300 mL into the right breast, mostly staying in the superior medial and superior aspect to help with the step-off deformity in the transition from the chest wall to the flap. I did that using a Arana cannula. I also injected some fat generally into the right breast flap itself to help increase the size and I also injected some fat laterally in the area that was somewhat deflated due to that deficiency of fat as mentioned before to help fill this in and to help relieve the step-off deformity and also to help hopefully adding some fat and to treat her hypersensitivity in that area. I did the same thing on the left breast, injecting 200 mL of fat total mostly into the superior medial aspect, but also a small amount into the flap itself, PATIENT NAME: ELIAN AMARO MARIELA although not as much into the flap because the left flap was larger. Once I was done, I closed those sites with a 5-0 plain gut suture. Closed the lipo incisions with 3-0 Monocryl and 5-0 plain gut and placed a Dermabond dressing onto the incisions for the breast and this concluded the procedure. DRAINS: None. COMPLICATIONS: None. SPECIMENS: Right and left breast skin. TOTAL LIPOASPIRATE: 2.5 liters. FAT INJECTED: 300 mL to right breast and 200 mL to left breast. ESTIMATED BLOOD LOSS: 20 mL. COMPLICATIONS: None. DISPOSITION: To PACU in stable condition. Dictated By: Kamaljit Delgado MD WT: OP:ALLIE/EDEN/NTS Conf#: [id number]/DID#: [id number] Authenticated by Kamaljit Delgado MD On 10/21/2019 01:06:18 PM at 1306 PATIENT NAME: ELIAN AMARO MARIELA [facility] 2019-03-09 16:42:00 [facility] Discharge Summary REPORT#:[id number] REPORT STATUS: Signed DATE:03/09/19 TIME: 1641 PATIENT: ELIAN AMARO UNIT #: [id number] ROOM/BED: [address] : [address] AGE: 58 SEX: F ATTEND: Kamaljit Delgado MD ADM AUTHOR: Lisa Smith CATTLE STICKER * ALL edits or amendments must be made on the electronic/computer document * PCP PCP PCP: PCP: No Primary or Family Physician Discharge to: home General Information Date of admission: Observation Start Date: Date of admission: 03/05/19 Date of discharge: 03/09/19 Hospital course: s/p hayden pod #4, has progressed wel. Right flap still has some evidence of ischemia to nipple and upper quadrant but has improved significantly, cap refill is delayed in comparison to the left breast, [...] in use, umbilicus perfused. Med Rec Med Rec Discharge meds: Stop taking the following medications: [ORTHO CHARLEY] levOCARNitine (L-CARNITINE) 250 MG CAP [TRACE MINERALS] [UBIQUINOL 100MG] Continue taking these medications: PANTOPRAZOLE DR (PROTONIX) 40 MG TAB.DR 40 MILLIGRAM [...] MG-300 MCG TAB 1 TABLET ORAL DAILY. Objective VS/I O Last Documented: Result Date Time Pulse Ox 97 03/09 162 B/P 138/84 03/09 162 B/P Mean 101.8 03/09 1625 Temp 98.1 03/09 162 Pulse 76 03/09 1625 Resp 18 03/09 162 O2 Delivery Nasal cannula 03/07 0800 O2 Flow Rate 2.891687 03/07 0800 FiO2 100 03/05 2230 24 hour I O ending at 0700: 03/09 0700 03/08 1900 Intake Total 1080.00 1420.00 Output Total 1090 3045 Balance -10.00 -1625.00 Intake, IV 600.00 600.00 Intake, Oral 480 820 Number 1 Bowel Movements Number Voids 7 Output, 140 255 Drainage Output, Stool 0 Output, Urine 950 2790 Patient Weight Weight (lb): 166 Weight (oz): 14.24 Weight (kg): 75.700 General appearance: alert, awake, oriented, no acute distress, pleasant, conversational, mental status normal, no respiratory distress Breast: no discharge Cardiovascular: regular rate rhythm Respiratory: no distress GI: soft Extremities: moves all, no edema-all extremities Musculoskeletal: full range of motion Neuro/POLISHER DIAL: alert, oriented X 3 Considered stroke alert: no Skin: dry, intact, warm, abnormal color (right breast) Wound/incision: Location: sanna breast, fabricio sites and transverse abdomen Site Condition: dressing clean dry, incision intact, wound clean dry, no changes in wound, no drainage Results Results: vital signs stable, current med profile rev'd Discharge Instructions Diet: regular Oral fluid restriction: No Weight monitoring: Not Required Activity: as tolerated, no bending, no lifting, no twisting, non-strenuous, walk Wound/dressing care: OK TO SHOWER today NO APPLICATION OF OIL OR POWDER ON THE INCISION SITE dry entirely before reapplying abdominal garment and bra CHECK OF OOZING OR LEAKING OF DISCHARGE FROM THE INCISIONAL SITE Notify provider of these s/s: excessive bleeding into drains or from incision sites, any incision site opening , adverse medication reaction, rash, fever >101, excessive redness or warmth to surgical sites, any dark discoloration to breast. Additional instructions: call office with any questions, calls go to the answering service if overnight or over the weekend [phone] Prescriptions: with family, with patient Return to work/school: No Discharge management: less than 30 mins, face to face encounter Time spent: Time spent with patient (minutes): 29 Follow-up Appointments Attending Physician: Attending Physician: Kamaljit Delgado MD Appt. date: 03/20/19 (11am) Follow up: In 1-2 weeks Attestations Attestation needed: supervising physician Physician Attestation Agree w/findings plan: Agree with the findings and plan as documented by [insert AMRIT name]; * my personal evaluation is [ ] at 1702 RPT #:[id number] END OF REPORT [facility] 2019-03-09 16:42:00 [facility] Discharge Summary REPORT#:[id number] REPORT STATUS: Signed DATE:03/09/19 TIME: 1642 PATIENT: ELIAN AMARO UNIT #: [id number] ROOM/BED: [address] : [address] AGE: 58 SEX: F ATTEND: Kamaljit Delgado MD ADM AUTHOR: Lisa Smith NP * ALL edits or amendments must be made on the electronic/computer document * PCP PCP PCP: PCP: No Primary or Family Physician Discharge to: home General Information Date of admission: Observation Start Date: Date of admission: 03/05/19 Date of discharge: 03/09/19 Hospital course: s/p hayden pod #4, has progressed wel. Right flap still has some evidence of ischemia to nipple and upper quadrant but has improved significantly, cap refill is delayed in comparison to the left breast, [...] in use, umbilicus perfused. Med Rec Med Rec Discharge meds: Stop taking the following medications: [ORTHO CHARLEY] levOCARNitine (L-CARNITINE) 250 MG CAP [TRACE MINERALS] [UBIQUINOL 100MG] Continue taking these medications: PANTOPRAZOLE DR (PROTONIX) 40 MG TAB.DR 40 MILLIGRAM [...] MG-300 MCG TAB 1 TABLET ORAL DAILY. Objective VS/I O Last Documented: Result Date Time Pulse Ox 97 03/09 162 B/P 138/84 03/09 1625 B/P Mean 101.8 03/09 1625 Temp 98.1 03/09 1625 Pulse 76 03/09 1625 Resp 18 03/09 1625 O2 Delivery Nasal cannula 03/07 0800 O2 Flow Rate 2.573721 03/07 0800 FiO2 100 03/05 2230 24 hour I O ending at 0700: 03/09 0700 03/08 1900 Intake Total 1080.00 1420.00 Output Total 1090 3045 Balance -10.00 -1625.00 Intake, IV 600.00 600.00 Intake, Oral 480 820 Number 1 Bowel Movements Number Voids 7 Output, 140 255 Drainage Output, Stool 0 Output, Urine 950 2790 Patient Weight Weight (lb): 166 Weight (oz): 14.24 Weight (kg): 75.700 General appearance: alert, awake, oriented, no acute distress, pleasant, conversational, mental status normal, no respiratory distress Breast: no discharge Cardiovascular: regular rate rhythm Respiratory: no distress GI: soft Extremities: moves all, no edema-all extremities Musculoskeletal: full range of motion Neuro/POLISHER DIAL: alert, oriented X 3 Considered stroke alert: no Skin: dry, intact, warm, abnormal color (right breast) Wound/incision: Location: sanna breast, fabricio sites and transverse abdomen Site Condition: dressing clean dry, incision intact, wound clean dry, no changes in wound, no drainage Results Results: vital signs stable, current med profile rev'd Discharge Instructions Diet: regular Oral fluid restriction: No Weight monitoring: Not Required Activity: as tolerated, no bending, no lifting, no twisting, non-strenuous, walk Wound/dressing care: OK TO SHOWER today NO APPLICATION OF OIL OR POWDER ON THE INCISION SITE dry entirely before reapplying abdominal garment and bra CHECK OF OOZING OR LEAKING OF DISCHARGE FROM THE INCISIONAL SITE Notify provider of these s/s: excessive bleeding into drains or from incision sites, any incision site opening , adverse medication reaction, rash, fever >101, excessive redness or warmth to surgical sites, any dark discoloration to breast. Additional instructions: call office with any questions, calls go to the answering service if overnight or over the weekend [phone] Prescriptions: with family, with patient Return to work/school: No Discharge management: less than 30 mins, face to face encounter Time spent: Time spent with patient (minutes): 29 Follow-up Appointments Attending Physician: Attending Physician: Kamaljit Delgado MD Appt. date: 03/20/19 (11am) Follow up: In 1-2 weeks Attestations Attestation needed: supervising physician Physician Attestation Agree w/findings plan: Agree with the findings and plan as documented by [insert AMRIT name]; * my personal evaluation is [ ] at 5685 at 2303 RPT #:[id number] END OF REPORT [facility] 2019-03-08 22:38:00 [id number] [facility] [address] [place], [place] [address] PATIENT NAME: ELIAN AMARO MARIELA ADMIT DATE: 03/05/19 ACCOUNT NO: [id number] ROOM NO: [facility] AGE: 58 SEX: F ADMITTING PHYSICIAN: Kamaljit Delgado MD ATTENDING PHYSICIAN: Kamaljit Delgado MD OPERATION DATE: 03/05/2019 PREOPERATIVE DIAGNOSIS: Acquired bilateral absence of breast. POSTOPERATIVE DIAGNOSIS: Acquired bilateral absence of breast. PROCEDURES PERFORMED: 1. Immediate reconstruction of the left breast using free HAYDEN geodetic surveyor flap. 2. Reconstruction of the anatomic footprint with acellular dermal matrix. 3. Exploration of left flap superficial vessel system. 4. Intraoperative immunofluorescence angiographies using the spy. SURGEON: Danii Jones MD. HAND CIGAR MAKER: Kamaljit Delgado MD. ANESTHESIA: General endotracheal anesthesia. INDICATIONS FOR PROCEDURE: Ms. Amaro is a 58-year-old female undergoing bilateral mastectomies by Dr. Boucher. She was found to be a good candidate for immediate autologous breast reconstruction. The patient was seen in Dr. Delgado's clinic. All questions were answered and consents were obtained. PROCEDURE IN DETAIL: The patient was taken to the operating room, prepped and draped in the normal sterile fashion. Dr. Boucher performed her bilateral mastectomies. Please see her operative note for full details. While Dr. Boucher was performing her portion of the procedure, I began the dissection of the left breast flap in order to help expedite the patient's surgery. Regarding the left flap, I made my incision down, dissected out the superficial inferior vein. Deeper and more lateral to this, I also identified a second inferior artery with the vein, dissected this out for several centimeters. This required extra working time and plan in the operating room, in case I needed this for flap salvage. After this was done, I completed my dissection through the fascia and then raised up the lateral edge of the flap to the lateral row perforators. I found three lateral row perforators in succession and dissected these out from the flap then down to the fascia in continuity with the pedicle. After dissection of the pedicle down to the takeoff of the external iliac vessel system, I was able to spare the muscle on the side. Once this flap was ready, I handed the flap off to Dr. Delgado who performed the microanastomosis. After I had done this, I then closed the abdominal incision by placing a small lightweight PATIENT NAME: ELIAN AMARO MARIELA propylene mesh underneath the rectus muscle and then closed the rectus muscle using 2-0 Vicryl suture. I used a #1 PDS to close the fascia in an interrupted manner followed by running 2-0 Prolene suture for fascial closure. The flap was hooked up by Dr. Delgado. Please see his operative note for full details. Regarding the left chest, I irrigated the left chest and obtained hemostasis and then assessed my inframammary fold and lateral breast footprint, which was violated by the mastectomy. I brought in a piece of AlloDerm, which I had soaked in saline and chlorhexidine water bath. After I brought this into the field and sutured in and anchored into the IMF fold, the lateral breast footprint was found to hold the flap in good position. Using a 2-0 Monocryl suture in an interrupted fashion, I reconstructed these areas. After Dr. Delgado finished his dissection of the right flap, he handed this off to me for the left breast reconstruction. I had already dissected out the internal mammary artery and vein, exposed and by resecting a portion of the rib cartilage. I performed microanastomosis using 8-0 nylon suture in an interrupted fashion as well as a 2.5-mm flow odd bundle worker. Once the flap was hooked up, I had good triphasic Doppler signal. Again, the flap demonstrated good blood flow throughout the remainder of the case. Regarding the inset, de-epithelialization was performed and sutured to the AlloDerm for the closure. This was done using 2-0 Vicryl. Intraoperative immunofluorescence angiography was brought in from the spy and both flaps were hooked up initially and showed good flow to the left flap and the right flap. Once both flaps were in position, we flexed the patient's bed and advanced the abdominal wall flap distally. Using 2-0 Vicryl in Raven's fascia followed by 2-0 and 3-0 Monocryl in the skin delivering the umbilicus to the new position after marking. This was sutured in place with 2-0 Vicryl and 3-0 Monocryl followed by 5-0 plain gut suture. The abdominal incision was covered with Prineo. The umbilicus was covered with Xeroform and Tegaderm. The breasts were covered in a surgical bra and this concluded the procedure. DRAINS: Two 15-Latvian drains in the left breast. Two 15-Latvian drains in the right breast. Dictated By: Danii Jones MD WT: OP:F.YANELIS/MIKELZIsaias/NTS Conf#: [id number]/DID#: [id number] Authenticated by Danii Jones MD On 03/09/2019 12:42:18 PM at 1242 PATIENT NAME: ELIAN AMARO [facility] 2019-03-08 12:53:00 [id number] [address] PATIENT NAME: ELIAN AMARO ADMIT DATE: 03/05/19 ACCOUNT NO: [id number] ROOM NO: Raiza.IC3 AGE: 58 SEX: F ADMITTING PHYSICIAN: Kamaljit Delgado MD ATTENDING PHYSICIAN: Kamaljit Delgado MD OPERATION DATE: 03/05/2019 SURGEON: Kamaljit Delgado MD HAND CIGAR MAKER: Danii Jones MD SECOND HAND CIGAR MAKER: Orly Knowles CSA ANESTHESIA: General. PREOPERATIVE DIAGNOSES: 1. 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 2. Encounter for reconstruction after mastectomy. 3. Bilateral acquired absence of the breast and nipple. 4. High risk for malignant neoplasm of the breast. 5. Family history of breast cancer. POSTOPERATIVE DIAGNOSES: 1. 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 2. Encounter for reconstruction after mastectomy. 3. Bilateral acquired absence of the breast and nipple. 4. High risk for malignant neoplasm of the breast. 5. Family history of breast cancer. PROCEDURES PERFORMED: 1. Immediate reconstruction of right breast with free HAYDEN flap, CPT - S2068. 2. Reconstruction of right breast anatomic footprint with acellular dermal matrix, CPT - 82553. 3. Exploration of the right flap superficial vessel system, CPT - 63617. 4. Immunofluorescence angiography, CPT - 07961. INDICATIONS FOR PROCEDURE: Ms. Amaro is a 58-year-old woman who was referred to me by Dr. Melodie Boucher for her breast reconstructive options. The patient has a large component of DCIS in the right breast and is going to need to undergo mastectomy on that side. She does not want to do breast conservation therapy and she also wishes to undergo a bilateral mastectomy. I saw her in consultation and went over her reconstructive options including the use of implants versus the use of flaps and went through detailed discussion of both of those options. I described to her the flap, HAYDEN procedure in detail as well as the tissue product design specialist option and the patient would prefer to use autologous tissue in the form of a HAYDEN flap. I do think she is a good candidate for this, as she PATIENT NAME: ELIAN AMARO has some extra skin down below her umbilicus and she would benefit from using that tissue. I conferred with Dr. Boucher, who agreed that since she is getting a mastectomy is unlikely to need radiation and we therefore went ahead and planned for the HAYDEN flap bilaterally. We went through the risk and complication profile with the patient in detail including flap failure, flap necrosis, fat necrosis, infection, bleeding, contour deformities, irregularities and the need for revision. Also, described the use of possible need for placement of tissue product design specialist if we do indeed flap did fail. Also, she may be a candidate for nipple-sparing mastectomy and so we talked to the patient about skin, failing of the need for nipple reconstruction in the future. We talked about the recovery at length as well as the hospital stay. PROCEDURE IN DETAIL: After informed consent was obtained, the patient was brought to the operating room and placed supine on the operating table. Anesthesia was induced. Time-out procedure was done. She was prepped and draped in normal sterile fashion. I began on the patient's right abdomen while Dr. Boucher was performing her bilateral mastectomies, which were nipple-sparing, and these were done through a radial type of incision. While Dr. Boucher's portion was ongoing, please see her operative note for full details, I began dissecting out the right flap on the abdomen. I made my horizontal incision, and dissected out the superficial, inferior epigastric vein for several centimeters. I next explored a second superficial vessel system on the right flap, which was more lateral and deeper than the superficial vein itself. May contain both the artery and 2 vein and I dissected this out for several centimeters as well, which added a significant amount of extra time and work of the procedure. After this, I then dissected down to the fascia completed the abdominal cut and encircled around the umbilicus and then dissected up to the medial and lateral row perforators. I identified 3 perforating vessels on the lateral row and dissected down through the fascia and dissected the perforators through the muscle into their continuity with the underlying pedicle and down to its branch points off of the external iliac. After this, once Dr. Boucher had finished, I moved up to the right chest. I examined the skin flaps and I irrigated this out and obtained hemostasis. After I had attained hemostasis, I then dissected down over the fourth rib. I dissected down through the pectoralis muscle identified, medial segment of the cartilaginous portion of the fourth rib and removed this after dissecting off the lining of the cartilage portion. I removed this and exposed the internal mammary vessels. I dissected it out for several centimeters and prepared them for the microanastomosis. After that was done, I then identified my inframammary fold and anterior axillary line, marked these out and then brought in my acellular dermal matrix. I then proceeded to reconstruct the inframammary fold and acellular dermal matrix by securing the leading edge of the AlloDerm to these points using a 2-0 Monocryl suture in several areas as they are typically violated as part of the mastectomy. I placed two 15-Latvian drains and brought them out laterally in the chest and brought out laterally and secured in place with a 2-[address] Santo had similarly been performing his dissection on the left chest and the left abdominal flap. Please see his operative note for full details regarding that portion of the procedure. PATIENT NAME: ELIAN AMARO MARIELA After Dr. Santo had finished his left flap dissection, he then handed this off to me and after ligating the pedicle and I proceeded to perform my microanastomosis on the right chest. Initially, I used a 2.5 mm flow odd bundle worker to perform the venous microanastomosis. After cleaning off the adventitia for the artery on the chest as well as the flap side, I then performed my arterial microanastomosis under the microscope using an 8-0 nylon suture. After this was done, I then removed the [place] clamps and the flaps demonstrated good blood flow throughout the remainder of the case. Also I de-epithelialized this portion of the flap and after allowing the flap to sit in place for several minutes, I then inset the right breast into the chest underneath the skin flaps. I marked out my area for my skin paddle and deepithelialized the remaining portion of the flap. I next brought my AlloDerm around using the other edge and attached this to the flap to help hold the flap in good position in an anteromedial manner. The AlloDerm was secured to the flap using 2-0 Monocryl suture in simple interrupted manner. After this, I harvested the right abdominal flap by ligating it at its pedicle and handed this off to Dr. Santo who performed the left flap anastomosis. Again, please see his operative note for full details. The left breast was inset as was the right. Next, we began closing the abdomen. I brought in a lightweight polypropylene mesh and placed this under the rectus muscle bilaterally to perform a [place] type of mesh placement, which was in a retrorectus plane and I closed the rectus muscle using a 2-0 Vicryl suture. The fascial incisions were then closed using a #1 PDS in a buried [id number] fashion followed by a #1 Prolene all in a running intermittent locking fashion. We then plicated centrally the fascia above the umbilicus using a #1 Prolene suture. Next, we injected Exparel throughout the abdomen, deep to the external oblique muscle and lateral to our plication and then once the breast flaps were inset, we flexed the patient's bed, advanced the abdominal flap and closed this in several layers with 2-0 Vicryl in Raven's fascia followed by 2-0 Monocryl and 3-0 Monocryl with the assistance of the Insorb stapler also. We delivered the umbilicus through into its spot and secured this in place with 2-0 Vicryl followed by 2-0 Monocryl and then 5-0 plain gut suture. This was covered with Xeroform and a Tegaderm. The abdominal incision was closed with Prineo and the breast incisions were simply covered with Xeroform. The skin paddle was fairly small. We had good triphasic signals and good internal Doppler signals upon departure for the ICU. We also placed two 15-Latvian drains in the abdomen and brought these out laterally and secured in place with a 3-0 nylon suture. Prior to departing, we also brought in the trivago system and performed intraoperative immunofluorescence angiography on both flaps as well as the mastectomy skin. The flaps demonstrated good blood flow throughout the flap itself as did the left mastectomy skin. The right mastectomy skin demonstrated decreased blood flow for sort of a large segment, especially around the right nipple areolar complex. Therefore, I elected to try to keep this, but we did place a nitroglycerin ointment over this. This concluded the procedure. DRAINS: Two 15-Latvian drains in each breast and two 15-Latvian drains in the abdomen. SPECIMENS: None for my portion. FINDINGS: 3- and 4-vessel geodetic surveyor flaps for the right and left side. PATIENT NAME: ELIAN AMARO COMPLICATIONS: None. ESTIMATED BLOOD LOSS: 50 mL. DISPOSITION: To the ICU, in stable condition. ACELLULAR DERMAL MATRIX USED: 1. Right side, AlloDerm Select tissue matrix contour large perforated, lot number [id number], expiration date 11/2020, reference number [id number], 164 cm sq. 2. Left breast, AlloDerm Select tissue matrix contour large perforated, lot number [id number], expiration date 11/2020, reference number [id number], 164 cm sq. Dictated By: Kamaljit Delgado MD WT: OP:ALLIE/ESTIVEN. Conf#: [id number]/DID#: [id number] Authenticated by Kamaljit Delgado MD On 04/07/2019 10:34:59 AM at 1035 PATIENT NAME: ELIAN AMARO [facility] 2019-03-08 10:20:00 [facility] Plastic Surgery Progress Note REPORT#:[id number] REPORT STATUS: Signed DATE:03/08/19 TIME: 1020 PATIENT: ELIAN AMARO UNIT #: [id number] ROOM/BED: [address] : [birth year] AGE: 58 SEX: F ATTEND: Kamaljit Delgado MD ADM AUTHOR: Lisa Smith CATTLE STICKER * ALL edits or amendments must be made on the electronic/computer document * General Post-op: day 3 Status post: sanna nipple sparing mastectomy with hayden flap reconstruction Subjective Chief Complaint: headache from nitro, incisional discomfort, irritation from drains Patient reports: Yes: complaints, adequate PO intake, ambulating, feeling better, headache, incisional pain, pain. Nursing reports: Yes: complaints, adequate PO intake, ambulating, feeling better, headache, incisional pain, pain. Review of Systems Skin: Reports: bruising. Cardiovascular: Reports: edema (trace generalized). Neuro: Reports: headache (nitropaste). All systems rev neg: except as marked Objective Physical Exam VS/I O: Last Documented: Result Date Time Pulse Ox 95 03/08 0500 Temp 98.3 03/08 0500 Pulse 80 03/08 0500 Resp 21 03/08 0500 B/P 139/70 03/08 0400 B/P Mean 98 03/08 0400 O2 Delivery Nasal cannula 03/07 0800 O2 Flow Rate [id number] 03/07 0800 FiO2 100 03/05 2230 24 hour I O ending at 0700: 03/08 0700 03/07 1900 Intake Total 1700.00 Output Total 2430 2302 Balance -2430 -602.00 Intake, IV 1100.00 Intake, Oral 600 Output, 280 327 Drainage Output, Urine 2150 1975 Patient Weight Weight (lb): 166 Weight (oz): 14.24 Weight (kg): 75.700 Medications: Active Meds + DC'd Last 24 Hrs Acetaminophen 650 MG Q6H PRN PRN PO Atorvastatin Calcium 10 MG DAILY PO Enoxaparin Sodium 40 MG DAILY SUBQ Hydrocodone Bitart/Acetaminophen 2 TAB Q6H PRN PRN PO Nitroglycerin 1 GM Q6H TOPICAL (CKD) Undefined Medication 50 ML ONCE ONE IV (DC) Cefazolin Sodium 1 GM Q8H IV (DC) Sterile Water 10 ML Ketorolac Tromethamine 10 MG Q6HR PO Docusate Sodium 100 MG 0900,2100 PO Gabapentin 300 MG TID PO Potassium Chloride/Dextrose/Sod Cl 1,000 ML ASDIR IV (CKD) Hydrocodone Bitart/Acetaminophen 1 TAB Q6H PRN PRN PO Hydromorphone HCl 0.5 MG Q2H PRN PRN IV Ondansetron HCl 4 MG Q4H PRN PRN IV General appearance: alert, awake, oriented, no acute distress, pleasant, conversational, mental status normal, no respiratory distress Wound/incision: Location: breast, abdomen Site condition: dressing clean dry, dressing intact, incision intact, no changes in wound, no drainage, no ecchymosis, no erythema Neck: full range of motion Breast: Left: good shape, nipples perfused, normal capillary refill. Bilateral: abnormal capillary refill (ruq rlq lateral delayed), good size, incision healing well, JPs in place, normal temperature, soft to touch, no drainage, no erythema. Breast comments: right nipple has some evidence of ischemia, darker red/light purple color has improved since yesterday, nitropaste to upper quadrant right breast and rlq more laterally delayed capillary refill, color more of light brown bruise, cap refill <3 seconds but delayed in comparison to surrounding tissue and left breast. Left breast has some bruising, however edema has improved,cap refill has improved significantly along with nipple blood flow. Triphasic doppler signals, internal signals good waveform bilaterally, right stronger than left. Cardiovascular: regular rate rhythm Respiratory: aerating well, no distress Abdomen: incision healing well, FABRICIO drains, soft, umbilicus perfused Genitourinary: deferred Extremities: edema (generalized trace), moves all, normal capillary refill, normal temperature Neuro/POLISHER DIAL: alert, oriented X 3 Considered stroke alert: no Skin: normal color, normal temperature, normal turgor Results Results: no new labs, vital signs stable, rhythm personally rev'd, current med profile rev'd Treatment Prophylaxis Treatment Prophylaxis Lynn status: none Oxygen: room air Lines: peripheral IV fluids: D5, 1/2 NS w/ KCl (75cc/hr) Diagnosis, Assessment Plan Hospital course to date: pod3 s/p bilateral hayden flap. BP improved, doing better overall today, flap color has improved as well as doppler signal strength to left breast and cap refill bilaterally. Free Text A P: OOB to chair with meals tid, flap checks q4hrs, ivf 50cc/hr now, may discontinue tonight if adequate oral intake continues. Appetite has improved along with oral intake. Continue nitropaste to right breast. Place biopatch to all breast drains and axilla with tegaderm. May change xeroform drsg to umbilicus. Floor status. Code status: full code Plan discussed with: patient, spouse/partner, nurse Attestations Attestation needed: supervising physician at 1046 RPT #:[id number] END OF REPORT [facility] 2019-03-08 10:20:00 [facility] Plastic Surgery Progress Note REPORT#:[id number] REPORT STATUS: Signed DATE:03/08/19 TIME: 1020 PATIENT: ELIAN AMARO MARIELA UNIT #: [id number] ROOM/BED: [address] : [birth year] AGE: 58 SEX: F ATTEND: Kamaljit Delgado MD ADM AUTHOR: Lisa Smith NP * ALL edits or amendments must be made on the electronic/computer document * General Post-op: day 3 Status post: sanna nipple sparing mastectomy with hayden flap reconstruction Subjective Chief Complaint: headache from nitro, incisional discomfort, irritation from drains Patient reports: Yes: complaints, adequate PO intake, ambulating, feeling better, headache, incisional pain, pain. Nursing reports: Yes: complaints, adequate PO intake, ambulating, feeling better, headache, incisional pain, pain. Review of Systems Skin: Reports: bruising. Cardiovascular: Reports: edema (trace generalized). Neuro: Reports: headache (nitropaste). All systems rev neg: except as marked Objective Physical Exam VS/I O: Last Documented: Result Date Time Pulse Ox 95 03/08 0500 Temp 98.3 03/08 0500 Pulse 80 03/08 0500 Resp 21 03/08 0500 B/P 139/70 03/08 0400 B/P Mean 98 03/08 0400 O2 Delivery Nasal cannula 03/07 0800 O2 Flow Rate [id number] 03/07 0800 FiO2 100 03/05 2230 24 hour I O ending at 0700: 03/08 0700 03/07 1900 Intake Total 1700.00 Output Total 2430 2302 Balance -2430 -602.00 Intake, IV 1100.00 Intake, Oral 600 Output, 280 327 Drainage Output, Urine 2150 1974 Patient Weight Weight (lb): 166 Weight (oz): 14.24 Weight (kg): 75.700 Medications: Active Meds + DC'd Last 24 Hrs Acetaminophen 650 MG Q6H PRN PRN PO Atorvastatin Calcium 10 MG DAILY PO Enoxaparin Sodium 40 MG DAILY SUBQ Hydrocodone Bitart/Acetaminophen 2 TAB Q6H PRN PRN PO Nitroglycerin 1 GM Q6H TOPICAL (CKD) Undefined Medication 50 ML ONCE ONE IV (DC) Cefazolin Sodium 1 GM Q8H IV (DC) Sterile Water 10 ML Ketorolac Tromethamine 10 MG Q6HR PO Docusate Sodium 100 MG 0900,2100 PO Gabapentin 300 MG TID PO Potassium Chloride/Dextrose/Sod Cl 1,000 ML ASDIR IV (CKD) Hydrocodone Bitart/Acetaminophen 1 TAB Q6H PRN PRN PO Hydromorphone HCl 0.5 MG Q2H PRN PRN IV Ondansetron HCl 4 MG Q4H PRN PRN IV General appearance: alert, awake, oriented, no acute distress, pleasant, conversational, mental status normal, no respiratory distress Wound/incision: Location: breast, abdomen Site condition: dressing clean dry, dressing intact, incision intact, no changes in wound, no drainage, no ecchymosis, no erythema Neck: full range of motion Breast: Left: good shape, nipples perfused, normal capillary refill. Bilateral: abnormal capillary refill (ruq rlq lateral delayed), good size, incision healing well, JPs in place, normal temperature, soft to touch, no drainage, no erythema. Breast comments: right nipple has some evidence of ischemia, darker red/light purple color has improved since yesterday, nitropaste to upper quadrant right breast and rlq more laterally delayed capillary refill, color more of light brown bruise, cap refill <3 seconds but delayed in comparison to surrounding tissue and left breast. Left breast has some bruising, however edema has improved,cap refill has improved significantly along with nipple blood flow. Triphasic doppler signals, internal signals good waveform bilaterally, right stronger than left. Cardiovascular: regular rate rhythm Respiratory: aerating well, no distress Abdomen: incision healing well, FABRICIO drains, soft, umbilicus perfused Genitourinary: deferred Extremities: edema (generalized trace), moves all, normal capillary refill, normal temperature Neuro/POLISHER DIAL: alert, oriented X 3 Considered stroke alert: no Skin: normal color, normal temperature, normal turgor Results Results: no new labs, vital signs stable, rhythm personally rev'd, current med profile rev'd Treatment Prophylaxis Treatment Prophylaxis Lynn status: none Oxygen: room air Lines: peripheral IV fluids: D5, 1/2 NS w/ KCl (75cc/hr) Diagnosis, Assessment Plan Hospital course to date: pod3 s/p bilateral hayden flap. BP improved, doing better overall today, flap color has improved as well as doppler signal strength to left breast and cap refill bilaterally. Free Text A P: OOB to chair with meals tid, flap checks q4hrs, ivf 50cc/hr now, may discontinue tonight if adequate oral intake continues. Appetite has improved along with oral intake. Continue nitropaste to right breast. Place biopatch to all breast drains and axilla with tegaderm. May change xeroform drsg to umbilicus. Floor status. Code status: full code Plan discussed with: patient, spouse/partner, nurse Attestations Attestation needed: supervising physician at 1046 at 1957 RPT #:[id number] END OF REPORT [facility] 2019-03-07 10:52:00 [facility] Plastic Surgery Progress Note REPORT#:[id number] REPORT STATUS: Signed DATE:03/07/19 TIME: 1052 PATIENT: ELIAN AMARO UNIT #: [id number] ROOM/BED: [address] : [birth year] AGE: 58 SEX: F ATTEND: Kamaljit Delgado MD ADM AUTHOR: Lisa Smith NP * ALL edits or amendments must be made on the electronic/computer document * General Post-op: day 2 Status post: sanna nipple sparing mastectomy with hayden flap reconstruction Antibiotics: day 3 Subjective Chief Complaint: headache from nitropaste Patient reports: Yes: headache, incisional pain, pain. No: shortness of breath. Nursing reports: Yes: headache, incisional pain, pain. No: shortness of breath. Review of Systems Constitutional: Reports: malaise. Skin: Reports: bruising. Cardiovascular: Reports: edema (generalized trace). GI: Reports: anorexia. All systems rev neg: except as marked ROS comments: resting in bedside chair at this time, c/o headache from nitropaste and generalized aching rates 10. Objective Physical Exam VS/I O: Last Documented: Result Date Time Pulse Ox 95 03/07 1000 B/P 130/63 03/07 1000 B/P Mean 90 03/07 1000 Pulse 78 03/07 1000 Resp 19 03/07 1000 O2 Flow Rate 2 03/070 Temp 98.4 03/07 0400 O2 Delivery Nasal cannula 03/06 2015 FiO2 100 03/05 2230 24 hour I O ending at 0700: 03/07 0700 03/06 1900 Intake Total 1745.00 2200.00 Output Total 2621 1154 Balance -876.00 1046.00 Intake, IV 1500.00 1200.00 Intake, Oral 245 1000 Output, 246 204 Drainage Output, Urine 2375 950 Patient Weight Weight (lb): 166 Weight (oz): 14.24 Weight (kg): 75.700 Medications: Active Meds + DC'd Last 24 Hrs Acetaminophen 650 MG Q6H PRN PRN PO Atorvastatin Calcium 10 MG DAILY PO Enoxaparin Sodium 40 MG DAILY SUBQ Hydrocodone Bitart/Acetaminophen 2 TAB Q6H PRN PRN PO Nitroglycerin 1 GM Q6H TOPICAL (CKD) Undefined Medication 50 ML ONCE ONE IV Cefazolin Sodium 1 GM Q8H IV Sterile Water 10 ML Ketorolac Tromethamine 10 MG Q6HR PO Docusate Sodium 100 MG 0900,2100 PO Gabapentin 300 MG TID PO Potassium Chloride/Dextrose/Sod Cl 1,000 ML ASDIR IV (CKD) Hydrocodone Bitart/Acetaminophen 1 TAB Q6H PRN PRN PO Hydromorphone HCl 0.5 MG Q2H PRN PRN IV Ondansetron HCl 4 MG Q4H PRN PRN IV General appearance: alert, awake, oriented Wound/incision: Location: breast, abdomen Site condition: dressing clean dry, dressing intact, incision intact, no changes in wound, no drainage, no ecchymosis, no erythema Neck: full range of motion Breast: Bilateral: abnormal capillary refill (ruq breast delayed cap refill), edema, good size, incision healing well, JPs in place, normal temperature, no drainage, no erythema. Breast comments: ruq with nitropaste, triphasic doppler signals bilaterally, internal dopplers with good waveform, improved significantly from yesterday on left side, still more faint in comparison to right, however, stronger today, cap refill is delayed but still <3 seconds, bilateral nipples have dusky color that has improved today as well today Cardiovascular: regular rate rhythm Respiratory: aerating well, no distress Abdomen: incision healing well, FABRICIO drains, soft, umbilicus perfused Genitourinary: deferred Extremities: edema (generalized), moves all, normal capillary refill, normal temperature Neuro/POLISHER DIAL: alert, oriented X 3 Considered stroke alert: no Skin: normal color, normal temperature, normal turgor Results Results: no new labs, vital signs stable, rhythm personally rev'd, current med profile rev'd Treatment Prophylaxis Treatment Prophylaxis Lynn status: discontinue today Indication for urinary catheter: accurate I/O and crit ill Urine color: clear Oxygen: nasal cannula Lines: peripheral IV fluids: 1/2 NS (75cc/hr), D5, 1/2 NS w/ KCl Diagnosis, Assessment Plan Hospital course to date: pod2 s/p bilateral hayden flap. BP improved, doing better overall today, flap color has improved as well as doppler signal strength to left breast. Free Text A P: OOB to chair with meals tid, flap checks q2hrs, ivf 75cc/hr. Continue to advance diet as tolerated. This evening around 4-5 pm we can ambulate remove lynn, IMU status at this time. Code status: full code Plan discussed with: patient, nurse Attestations Attestation needed: supervising physician at 1107 RPT #:[id number] END OF REPORT [facility] 2019-03-07 10:52:00 [facility] Plastic Surgery Progress Note REPORT#:[id number] REPORT STATUS: Signed DATE:03/07/19 TIME: 1052 PATIENT: ELIAN AMARO UNIT #: [id number] ROOM/BED: [address] : [birth year] AGE: 58 SEX: F ATTEND: Kamaljit Delgado MD ADM AUTHOR: Lisa Smith CATTLE STICKER * ALL edits or amendments must be made on the electronic/computer document * General Post-op: day 2 Status post: sanna nipple sparing mastectomy with hayden flap reconstruction Antibiotics: day 3 Subjective Chief Complaint: headache from nitropaste Patient reports: Yes: headache, incisional pain, pain. No: shortness of breath. Nursing reports: Yes: headache, incisional pain, pain. No: shortness of breath. Review of Systems Constitutional: Reports: malaise. Skin: Reports: bruising. Cardiovascular: Reports: edema (generalized trace). GI: Reports: anorexia. All systems rev neg: except as marked ROS comments: resting in bedside chair at this time, c/o headache from nitropaste and generalized aching rates 10. Objective Physical Exam VS/I O: Last Documented: Result Date Time Pulse Ox 95 [...] Urine 2375 950 Patient Weight Weight (lb): 166 Weight (oz): 14.24 Weight (kg): 75.700 Medications: Active Meds + DC'd Last 24 Hrs Acetaminophen 650 MG Q6H PRN PRN PO Atorvastatin Calcium 10 MG DAILY PO Enoxaparin Sodium 40 MG DAILY SUBQ Hydrocodone Bitart/Acetaminophen 2 TAB Q6H PRN PRN PO Nitroglycerin 1 GM Q6H TOPICAL (CKD) Undefined Medication 50 ML ONCE ONE IV Cefazolin Sodium 1 GM Q8H IV Sterile Water 10 ML Ketorolac Tromethamine 10 MG Q6HR PO Docusate Sodium 100 MG 0900,2100 PO Gabapentin 300 MG TID PO Potassium Chloride/Dextrose/Sod Cl 1,000 ML ASDIR IV (CKD) Hydrocodone Bitart/Acetaminophen 1 TAB Q6H PRN PRN PO Hydromorphone HCl 0.5 MG Q2H PRN PRN IV Ondansetron HCl 4 MG Q4H PRN PRN IV General appearance: alert, awake, oriented Wound/incision: Location: breast, abdomen Site condition: dressing clean dry, dressing intact, incision intact, no changes in wound, no drainage, no ecchymosis, no erythema Neck: full range of motion Breast: Bilateral: abnormal capillary refill (ruq breast delayed cap refill), edema, good size, incision healing well, JPs in place, normal temperature, no drainage, no erythema. Breast comments: ruq with nitropaste, triphasic doppler signals bilaterally, internal dopplers with good waveform, improved significantly from yesterday on left side, still more faint in comparison to right, however, stronger today, cap refill is delayed but still <3 seconds, bilateral nipples have dusky color that has improved today as well today Cardiovascular: regular rate rhythm Respiratory: aerating well, no distress Abdomen: incision healing well, FABRICIO drains, soft, umbilicus perfused Genitourinary: deferred Extremities: edema (generalized), moves all, normal capillary refill, normal temperature Neuro/POLISHER DIAL: alert, oriented X 3 Considered stroke alert: no Skin: normal color, normal temperature, normal turgor Results Results: no new labs, vital signs stable, rhythm personally rev'd, current med profile rev'd Treatment Prophylaxis Treatment Prophylaxis Lynn status: discontinue today Indication for urinary catheter: accurate I/O and crit ill Urine color: clear Oxygen: nasal cannula Lines: peripheral IV fluids: 1/2 NS (75cc/hr), D5, 1/2 NS w/ KCl Diagnosis, Assessment Plan Hospital course to date: pod2 s/p bilateral hayden flap. BP improved, doing better overall today, flap color has improved as well as doppler signal strength to left breast. Free Text A P: OOB to chair with meals tid, flap checks q2hrs, ivf 75cc/hr. Continue to advance diet as tolerated. This evening around 4-5 pm we can ambulate remove lynn, IMU status at this time. Code status: full code Plan discussed with: patient, nurse Attestations Attestation needed: supervising physician at 1107 at 1956 RPT #:[id number] END OF REPORT [facility] 2019-03-06 07:18:00 [facility] ([facility] Plastic Surgery Progress Note REPORT#:[id number] REPORT STATUS: Signed DATE:03/06/19 TIME: 717 PATIENT: ELIAN AMARO UNIT #: [id number] ROOM/BED: [address] : [address] AGE: 58 SEX: F ATTEND: Kamaljit Delgado MD ADM AUTHOR: Lisa Smith NP * ALL edits or amendments must be made on the electronic/computer document * General Post-op: day 1 Status post: sanna nipple sparing mastectomy with hayden flap reconstruction Antibiotics: day 2 Subjective Chief Complaint: incisional pain Patient reports: Yes: complaints, incisional pain. No: ambulating, shortness of breath. Nursing reports: Yes: incisional pain. No: shortness of breath. Review of Systems Constitutional: Reports: generalized weakness. Skin: Reports: bruising, swelling. Respiratory: Denies: SOB. Cardiovascular: Reports: edema. All systems rev neg: except as marked Objective Physical Exam VS/I O: Last Documented: Result Date Time Pulse Ox 94 03/06 600 B/P 84/50 03/06 600 B/P Mean 62 03/06 600 Pulse 89 03/06 06 Resp 19 03/06 06 O2 Delivery Nasal cannula 03/06 040 O2 Flow Rate 2.189768 03/06 400 Temp 98.4 03/06 400 FiO2 100 03/05 2230 24 hour I O ending at 0700: 03/06 0700 03/05 1900 Intake Total 5525.00 Output Total 1355 Balance 4170.00 Intake, IV 5275.00 Intake, Oral 250 Output, 195 Drainage Output, 50 Estimated Blood Loss Output, Urine 1110 Patient 167 lb Weight Weight Standing scale Measurement Method Patient Weight Weight (lb): 166 Weight (oz): 14.24 Weight (kg): 75.700 Medications: Active Meds + DC'd Last 24 Hrs Atorvastatin Calcium 10 MG DAILY PO Enoxaparin Sodium 40 MG DAILY SUBQ Hydrocodone Bitart/Acetaminophen 2 TAB Q6H PRN PRN PO Nitroglycerin 1 GM Q6H TOPICAL (CKD) Undefined Medication 50 ML ONCE ONE IV Cefazolin Sodium 1 GM Q8H IV Sterile Water 10 ML Ketorolac Tromethamine 10 MG Q6HR PO Nitroglycerin 1 [...] Chloride 0 .STK-MED ONE .ROUTE (DC) Rocuronium [place] 5 ML .STK-MED ONE INJ (DC) Hetastarch/Lactated Electrolytes 500 ML .STK-MED ONE INJ (DC) Acetaminophen 100 ML .STK-MED ONE INJ (DC) Rocuronium [place] 5 ML .STK-MED ONE INJ (DC) Rocuronium [place] 5 ML .STK-MED ONE INJ (DC) Fentanyl Citrate 0 .STK-MED ONE .ROUTE (DC) Acetaminophen 100 ML .STK-MED ONE INJ (DC) Cefazolin Sodium 0 .STK-MED ONE .ROUTE (DC) Rocuronium [place] 5 ML .STK-MED ONE INJ (DC) Hydrocodone [...] no acute distress, pleasant, conversational, no respiratory distress Wound/incision: Location: breast, abdomen Site condition: dressing clean dry, dressing intact, incision intact, no changes in wound, no drainage, no erythema Neck: full range of motion Breast: Right: abnormal capillary refill. Bilateral: abnormal skin, cool to touch, edema, good size, incision healing well, JPs in place. Breast comments: sanna breast bruising, flaps cool to touch, warmer in use, nitropaste to right breast ruq, cap refill delayed to right flap, nipple color has slight dusky color bilaterally, left flap appears more full in shape while right has less upper pole fullness Cardiovascular: regular rate rhythm Respiratory: aerating well, no distress Abdomen: incision healing well, FABRICIO drains, soft, umbilicus perfused Genitourinary: deferred Extremities: edema (generalized), moves all, normal capillary refill, normal temperature Neuro/POLISHER DIAL: alert, oriented X 3 Considered stroke alert: no Skin: abnormal color (with exception of breast flaps), normal color, normal temperature, normal turgor Results Findings/Data: Laboratory Tests 03/050 Chemistry Sodium (135 - 145 [...] reviewed, vital signs stable Treatment Prophylaxis Treatment Prophylaxis Lynn status: day 2 Indication for urinary catheter: accurate I/O and crit ill Urine color: clear Oxygen: nasal cannula Lines: peripheral CVC/PICC documentation: CVC/PICC insertion date/time: IV fluids: D5, 1/2 NS w/ KCl Diagnosis, Assessment Plan Free Text A P: Right breast has evidence of ischemia to ruq [...] Orders: Procedure Date/time Status Discharge Order 03/09 1137 Active Code status: full code Plan discussed with: patient, nurse Attestations Attestation needed: supervising physician Physician Attestation Agree w/findings plan: Agree with the findings and plan as documented by [insert AMRIT name]; * my personal evaluation is [ ] at 1722 RPT #:[id number] END OF REPORT [facility] 2019-03-06 07:18:00 [facility] Plastic Surgery Progress Note REPORT#:[id number] REPORT STATUS: Signed DATE:03/06/19 TIME: 717 PATIENT: ELIAN AMARO UNIT #: [id number] ROOM/BED: [address] : [birth year] AGE: 58 SEX: F ATTEND: Kamaljit Delgado MD ADM AUTHOR: Lisa Smith NP * ALL edits or amendments must be made on the electronic/computer document * General Post-op: day 1 Status post: sanna nipple sparing mastectomy with hayden flap reconstruction Antibiotics: day 2 Subjective Chief Complaint: incisional pain Patient reports: Yes: complaints, incisional pain. No: ambulating, shortness of breath. Nursing reports: Yes: incisional pain. No: shortness of breath. Review of Systems Constitutional: Reports: generalized weakness. Skin: Reports: bruising, swelling. Respiratory: Denies: SOB. Cardiovascular: Reports: edema. All systems rev neg: except as marked Objective Physical Exam VS/I O: Last Documented: Result Date Time Pulse Ox 94 03/06 0600 B/P 84/50 03/06 0600 B/P Mean 62 12/24 0600 Pulse 89 03/06 0600 Resp 19 03/06 06 O2 Delivery Nasal cannula 03/06 040 O2 Flow Rate 2.081967 03/06 400 Temp 98.4 03/06 400 FiO2 100 03/050 24 hour I O ending at 0700: 03/06 0700 03/05 1900 Intake Total 5525.00 Output Total 1355 Balance 4170.00 Intake, IV 5275.00 Intake, Oral 250 Output, 195 Drainage Output, 50 Estimated Blood Loss Output, Urine 1110 Patient 167 lb Weight Weight Standing scale Measurement Method Patient Weight Weight (lb): 166 Weight (oz): 14.24 Weight (kg): 75.700 Medications: Active Meds + DC'd Last 24 Hrs Atorvastatin Calcium 10 MG DAILY PO Enoxaparin Sodium 40 MG DAILY SUBQ Hydrocodone Bitart/Acetaminophen 2 TAB Q6H PRN PRN PO Nitroglycerin 1 GM Q6H TOPICAL (CKD) Undefined Medication 50 ML ONCE ONE IV Cefazolin Sodium 1 GM Q8H IV Sterile Water 10 ML Ketorolac Tromethamine 10 MG Q6HR PO Nitroglycerin 1 [...] Chloride 0 .STK-MED ONE .ROUTE (DC) Rocuronium [place] 5 ML .STK-MED ONE INJ (DC) Hetastarch/Lactated Electrolytes 500 ML .STK-MED ONE INJ (DC) Acetaminophen 100 ML .STK-MED ONE INJ (DC) Rocuronium [place] 5 ML .STK-MED ONE INJ (DC) Rocuronium [place] 5 ML .STK-MED ONE INJ (DC) Fentanyl Citrate 0 .STK-MED ONE .ROUTE (DC) Acetaminophen 100 ML .STK-MED ONE INJ (DC) Cefazolin Sodium 0 .STK-MED ONE .ROUTE (DC) Rocuronium [place] 5 ML .STK-MED ONE INJ (DC) Hydrocodone [...] no acute distress, pleasant, conversational, no respiratory distress Wound/incision: Location: breast, abdomen Site condition: dressing clean dry, dressing intact, incision intact, no changes in wound, no drainage, no erythema Neck: full range of motion Breast: Right: abnormal capillary refill. Bilateral: abnormal skin, cool to touch, edema, good size, incision healing well, JPs in place. Breast comments: sanna breast bruising, flaps cool to touch, warmer in use, nitropaste to right breast ruq, cap refill delayed to right flap, nipple color has slight dusky color bilaterally, left flap appears more full in shape while right has less upper pole fullness Cardiovascular: regular rate rhythm Respiratory: aerating well, no distress Abdomen: incision healing well, FABRICIO drains, soft, umbilicus perfused Genitourinary: deferred Extremities: edema (generalized), moves all, normal capillary refill, normal temperature Neuro/POLISHER DIAL: alert, oriented X 3 Considered stroke alert: no Skin: abnormal color (with exception of breast flaps), normal color, normal temperature, normal turgor Results Findings/Data: Laboratory Tests 03/050 Chemistry Sodium (135 - 145 [...] reviewed, vital signs stable Treatment Prophylaxis Treatment Prophylaxis Lynn status: day 2 Indication for urinary catheter: accurate I/O and crit ill Urine color: clear Oxygen: nasal cannula Lines: peripheral CVC/PICC documentation: CVC/PICC insertion date/time: IV fluids: D5, 1/2 NS w/ KCl Diagnosis, Assessment Plan Free Text A P: Right breast has evidence of ischemia to ruq [...] Orders: Procedure Date/time Status Discharge Order 03/09 361 Active Code status: full code Plan discussed with: patient, nurse Attestations Attestation needed: supervising physician Physician Attestation Agree w/findings plan: Agree with the findings and plan as documented by [insert AMRIT name]; * my personal evaluation is [ ] at 1722 at 8286 RPT #:[id number] END OF REPORT [facility] 2019-03-05 17:38:00 [facility] ([facility]) Full Op Note REPORT#:[id number] REPORT STATUS: Signed DATE:03/05/19 TIME: 1737 PATIENT: ELIAN AMARO UNIT #: [id number] ROOM/BED: : 58 AGE: 58 SEX: F ATTEND: Melodie Boucher MD ADM AUTHOR: Melodie Boucher MD * ALL edits or amendments must be made on the electronic/computer document * Operative Report Start date: 03/05/19 Start time: 946 Pre-procedure diagnosis: Right breast cancer Post-procedure diagnosis: same Procedures performed: 1. Right nipple-sparing mastectomy 2. Right sentinel lymph node biopsy 3. Left prophylactic nipple-sparing mastectomy 4. Intraoperative lymph node mapping Technique/Procedure: The patient was taken to the operating room [...] strong mapping with radiotracer. The patient's chest and abdomen were then prepped and draped in the [...] skin and subcutaneous tissue. Next, flaps were created in all directions, superiorly to the level of the clavicle, inferiorly to the inframammary fold, laterally to the latissimus dorsi muscle edge, and medially to the lateral border of the sternum. The breast was then removed off its underlying pectoralis major muscle with pectoralis major fascia as its deep margin from medial to lateral. A thin shave margin was taken from the breast at the level of the nipple. A clip was placed on the true margin and this was sent to pathology for frozen section. The breast specimen [...] identified by palpation or Neoprobe. The axilla was irrigated with saline and hemostasis was achieved. The left mastectomy was then performed in a similar fashion as the right. A 3: 00 radial incision was made with the scalpel and carried down through the skin and subcutaneous tissue, and flaps were created in all directions, superiorly to the level of the clavicle, inferiorly to the inframammary fold, laterally to the latissimus dorsi muscle edge, and medially to the lateral border of the sternum. The breast was then removed off its underlying pectoralis major muscle with pectoralis major fascia as its deep margin from medial to lateral. The specimen was labeled as left mastectomy with suture on the axillary tail and clip at nipple and submitted to Pathology. Additional breast tissue was removed superiorly and submitted as left breast superior margin. Hemostasis was achieved, and a warm moist lap was placed in the breast cavity. The patient was then turned over to plastic surgery for the reconstruction. The patient was in stable condition and there were no complications for this portion of the procedure. All sponge, needle, and instrument counts were correct at the conclusion of this portion of the procedure. This [...] nipple to help maintain perfusion of the nipple. Primary Surgeon: Dr. 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 Due to the extent of disease in the right breast a mastectomy was recommended. We had a detailed discussion about the surgical management of breast cancer including the risks and benefits of doing a left prophylactic mastectomy. Patient elected for bilateral mastectomies. After consultation with Dr. Delgado, plastic surgeon, she has decided reconstruction with HAYDEN flaps. We discussed the risks of surgery and the additional risks and complications that can occur with operating on the unaffected breast. The risks include but are not limited to infection, bleeding, hematoma, seroma, abscess, nerve or vessel injury, skin and nipple ischemia or necrosis, poor cosmetic outcome, recurrence [...] She agrees to proceed and has signed consent. Operative findings: Normal breast parenchyma Complications: none Estimated blood loss in ml's: 100 Specimens removed/altered: Right and left mastectomies, right breast lateral margin, right nipple margin, left breast superior margin, right sentinel LNs Implant(s): none at 1741 RPT #[id number] END OF REPORT [facility] 2019-02-28 10:17:00 [id number] [facility] [address] [place], [place] [address] PATIENT NAME: ELIAN AMARO ADMIT DATE: ACCOUNT NO: [id number] ROOM NO: AGE: 58 SEX: F ADMITTING PHYSICIAN: ATTENDING PHYSICIAN: Melodie Boucher MD Order: [id number] Test Reason : PRE-OP Test Date/Time Stamp: TueFeb 28 2019 10:17:37 Blood Pressure : / mmHG Vent. Rate : 060 BPM Atrial Rate : 060 BPM P-R Int : 164 ms QRS Dur : 074 ms QT Int : 438 ms P-R-T Axes : 029 -13 043 degrees QTc Int : 438 ms Normal sinus rhythm Normal ECG No previous ECGs available Confirmed by EMILY SALAZAR MD ([id number]) on 03/01/2019 8:15:41 AM Referred By: DOES_NOT KNOW Confirmed by:EMILY SALAZAR MD at 0815 PATIENT NAME: ELIAN AMARO [facility]
[2023-12-28] MEDS ORDERED: LIDOCAINE 1% MPF 5 ML VIAL ONE (09:46)
[2023-12-28] MEDS ORDERED: BUPIVACAINE 0.5% PF 10 ML VIAL ONE (09:46)
[2023-12-28] MEDS ORDERED: MUPIROCIN 2% OINT 22GM TUBE TOP ONE (09:46)
--- NOTE | 2023-12-28 09:49 | EDPHYS ---
Physician Documentation [facility] Name: Mariah Oswald Age: 63 yrs Sex: Female : 1960 Arrival Date: 12/28/2023 Time: 09:08 Bed 19 Private MD: ED Physician Leonel Alvarez HPI: 12/27 09:43 This 63 yrs old Female presents to ER via Ambulatory with complaints of Toe leonidas Problem. 09:43 This 63 yrs old Female presents to ER via Ambulatory with complaints of Toe leonidas Problem. 09:43 The patient presents with pain, swelling. The complaints affect the right foot. leonidas Context: The problem was sustained at an unknown location. Onset: The symptoms/episode began/occurred 1 week(s) ago. Modifying factors: The symptoms are alleviated by nothing, the symptoms are aggravated by nothing. weight bearing. Associated signs and symptoms: The patient has no apparent associated signs or symptoms. Severity of symptoms: At their worst the symptoms were mild, in the emergency department the symptoms are unchanged. The patient has not experienced similar symptoms in the past. Historical: - Allergies: 09:19 Sulfa (Sulfonamide Antibiotics); ll1 - PMHx: 09:19 GERD; Hypertensive disorder; ll1 - PSHx: 09:19 breast CA; section; Ligation of fallopian tube; ll1 - Immunization history:: Adult Immunizations up to date. - Infectious Disease History:: Denies. - Social history:: Smoking status: Patient denies any tobacco usage or history of. - Family history:: not pertinent. ROS: 09:43 MS/extremity: Positive for pain, swelling, tenderness, of the Right first toenail, leonidas Exam: 09:43 Constitutional: This is a well developed, well nourished patient who is awake, alert, leonidas and in no acute distress. Head/Face: Normocephalic, atraumatic. Eyes: Pupils equal round and reactive to light, extra-ocular motions intact. Lids and lashes normal. Conjunctiva and sclera are non-icteric and not injected. Cornea within normal limits. Periorbital areas with no swelling, redness, or edema. ENT: Nares patent. No nasal discharge, no septal abnormalities noted. Tympanic membranes are normal and external auditory canals are clear. Oropharynx with no redness, swelling, or masses, exudates, or evidence of obstruction, uvula midline. Mucous membranes moist. Neck: Trachea midline, no thyromegaly or masses palpated, and no cervical lymphadenopathy. Supple, full range of motion without nuchal rigidity, or vertebral point tenderness. No Meningismus. Chest/axilla: Normal chest wall appearance and motion. Nontender with no deformity. No lesions are appreciated. Cardiovascular: Regular rate and rhythm with a normal S1 and S2. No gallops, murmurs, or rubs. Normal PMI, no JVD. No pulse deficits. Respiratory: Lungs have equal breath sounds bilaterally, clear to auscultation and percussion. No rales, rhonchi or wheezes noted. No increased work of breathing, no retractions or nasal flaring. Abdomen/GI: Soft, non-tender, with normal bowel sounds. No distension or tympany. No guarding or rebound. No evidence of tenderness throughout. Back: No spinal tenderness. No costovertebral tenderness. Full range of motion. Female : Normal external genitalia. Skin: Warm, dry with normal turgor. Normal color with no rashes, no lesions, and no evidence of cellulitis. Neuro: Awake and alert, GCS 15, oriented to person, place, time, and situation. Cranial nerves II-XII grossly intact. Motor strength 5/5 in all extremities. Sensory grossly intact. Cerebellar exam normal. Normal gait. Psych: Awake, alert, with orientation to person, place and time. Behavior, mood, and affect are within normal limits. 09:43 Musculoskeletal/extremity: ROM: full active range of motion, full passive range of motion, Circulation is intact in all extremities. Sensation intact. Compartment Syndrome exam of affected extremity: is normal. Weight bearing: able to fully bear weight, DVT Exam: negative Homans' sign noted on exam, no appreciated bluish discoloration, pain, swelling, tenderness, erythema, increased warmth, that is mild, of the Right first toenail, Vital Signs: 09:18 BP 140 / 82; Pulse 74; Resp 16; Temp 97.6; Pulse Ox 98% ; Weight 64.41 kg; Height 5 ft. ll1 3 in. ; Pain 8/10; 09:18 Body Mass Index 25.15 (64.41 kg, 160.02 cm) ll1 09:18 Pain Scale: Adult ll1 Procedures: 09:43 I \T\ D: Incision and drainage was performed for an abscess of the right right foot leonidas Prepped with Betadine, Anesthetized with 6 ml's 1% Lidocaine. Packed with xeroform. the patient tolerated the procedure well, 03/21 th nail removed. MDM: 09:13 Medical Screening Exam initiated [facility] :43 Differential diagnosis: cellulitis. Data reviewed: vital signs, nurses notes. leonidas Consideration of Admission/Observation Escalation of care including admission/observation considered. I considered the following discharge prescriptions or medication management in the emergency department Medications were administered in the Emergency Department. See MAR. Historians other than the Patient: pt well in formed. 12/27 09:35 Order name: Dressing - Wound; Complete Time: 10:04 [facility] 12/27 09:35 Order name: Gloves, Sterile; Complete Time: 10:04 [facility] 12/27 09:35 Order name: Setup Suture Tray; Complete Time: 10:04 [facility] Administered Medications: 10:04 Drug: Mupirocin Topical Ointment 2 % 1 application Topical once Route: Topical; Site: mb9 affected area; 10:13 Drug: Bupivacaine Infiltration (0.5 %) 5 ml 10 ml Infiltration once Volume: 10 ml; mb9 Route: Infiltration; 10:13 Drug: Lidocaine Infiltration (1 %) 5 ml 5 ml Infiltration once; to bedside Volume: 5 mb9 ml; Route: Infiltration; 10:39 Drug: Silver Nitrate Applicators Topical 1 application Topical once Route: Topical; mb9 Site: affected area; Disposition Summary: 12/28/23 09:48 Discharge Ordered Notes: Location: Home leonidas Problem: new leonidas Symptoms: have improved leonidas Condition: Stable leonidas Diagnosis - Ingrowing nail - removed leonidas Followup: leonidas - With: Private Physician - When: 2 - 3 days - Reason: Recheck today's complaints, Continuance of care, Re-evaluation by your physician Followup: leonidas - With: Ricci Sanchez DPM - When: 2 - 3 days - Reason: Recheck today's complaints, Re-evaluation by your physician Discharge Instructions: - Discharge Summary Sheet leonidas - Ingrown Toenail leonidas - Fingernail or Toenail Removal, Adult leonidas - Fingernail or Toenail Removal, Adult, Care After leonidas Forms: - Medication Reconciliation Form leonidas - Antibiotic Education leonidas - Prescription Opioid Use leonidas - Patient Portal Instructions leonidas - Leadership Thank You Letter leonidas Prescriptions: - Centany 2 % Topical ointment - apply 1 application TOPICAL route 3 times per day; 15 gram tube; Refills: 0, leonidas Product Selection Permitted - acetaminophen-codeine 300-30 mg Oral tablet - take 2 tablet ORAL route every 6 hours as needed for pain; 16 tablet; Refills: leonidas 0, Product Selection Permitted - Cephalexin 500 mg Oral capsule - take 1 capsule ORAL route every 6 hours for 7 days; 28 capsule; Refills: 0, leonidas Product Selection Permitted Signatures: Leonel Alvarez MD MD cha Lewis, Lynsay RN RN ll1 Tanya Soto RN RN mb9 Corrections: (The following items were deleted from the chart) 10:09 09:35 Erika moore. leonidas mb9
--- NOTE | 2023-12-28 09:49 | ER ---
Nurse's Notes [facility] [place] Name: Mariah Oswald Age: 63 yrs Sex: Female : 1960 Arrival Date: 12/28/2023 Time: 09:08 Bed 19 Private MD: Diagnosis: Ingrowing nail-removed Presentation: 12/27 09:18 Chief complaint: Patient states: R big toe redness, swelling for 3 weeks. Coronavirus ll1 screen: Client denies travel out of the [place] in the last 14 days. At this time, the client does not indicate any symptoms associated with coronavirus-19. Ebola Screen: Patient denies travel to an Ebola-affected area in the 21 days before illness onset. Initial Sepsis Screen: Does the patient meet any 2 criteria? No. Patient's initial sepsis screen is negative. Does the patient have a suspected source of infection? No. Patient's initial sepsis screen is negative. Risk Assessment: Do you want to hurt yourself or someone else? Patient reports no desire to harm self or others. Onset of symptoms was December 07, 2023. 09:18 Method Of Arrival: Ambulatory ll1 09:18 Acuity: YVONNE 4 ll1 Historical: - Allergies: 09:19 Sulfa (Sulfonamide Antibiotics); ll1 - PMHx: 09:19 GERD; Hypertensive disorder; ll1 - PSHx: 09:19 breast CA; section; Ligation of fallopian tube; ll1 - Immunization history:: Adult Immunizations up to date. - Infectious Disease History:: Denies. - Social history:: Smoking status: Patient denies any tobacco usage or history of. - Family history:: not pertinent. Screenin:02 [facility] ED Fall Risk Assessment (Adult) History of falling in the last 3 months, mb9 including since admission No falls in past 3 months (0 pts) Confusion or Disorientation No (0 pts) Intoxicated or Sedated No (0 pts) Impaired Gait No (0 pts) Mobility Assist Device Used No (0 pt) Altered Elimination No (0 pt) Score/Fall Risk Level 0 - 2 = Low Risk Oriented to surroundings, Maintained a safe environment, Educated pt \T\ family on fall prevention, incl call for assistance when getting out of bed. Abuse screen: Denies threats or abuse. Nutritional screening: No deficits noted. Tuberculosis screening: No symptoms or risk factors identified. Assessment: 09:50 Reassessment: D/C pending completion of I \T\ D. mb9 10:03 General: Appears in no apparent distress. Behavior is calm, cooperative. Pain: mb9 Complains of pain in right foot Pain does not radiate. Pain currently is 4 out of 10 on a pain scale. Quality of pain is described as throbbing. Neuro: Rose Agitation-Sedation Scale (RASS): 0 - Alert and Calm Level of Consciousness is awake, alert, obeys commands, Oriented to person, place, time, situation, Appropriate for age. Cardiovascular: Patient's skin is warm and dry. Respiratory: Airway is patent Respiratory effort is even, unlabored, Respiratory pattern is regular, symmetrical. GI: No signs and/or symptoms were reported involving the gastrointestinal system. : No signs and/or symptoms were reported regarding the genitourinary system. EENT: No signs and/or symptoms were reported regarding the EENT system. Derm: Skin is pink, warm \T\ dry. Musculoskeletal: Range of motion: intact in all extremities, Swelling present in right foot. Vital Signs: 09:18 BP 140 / 82; Pulse 74; Resp 16; Temp 97.6; Pulse Ox 98% ; Weight 64.41 kg; Height 5 ft. ll1 3 in. ; Pain 8/10; 09:18 Body Mass Index 25.15 (64.41 kg, 160.02 cm) ll1 09:18 Pain Scale: Adult ll1 ED Course: 09:12 Patient arrived in ED. mg5 09:13 Leonel Alvarez MD is Attending Physician. leonidas 09:19 Triage completed. ll1 09:19 Arm band placed on Patient placed in an exam room, on a stretcher. ll1 09:47 Ricci Sanchez DPM is Referral Physician. [email or web address] 10:02 Tanya Soto RN is Primary Nurse. mb9 10:02 Bed in low position. Call light in reach. Side rails up X 1. Provided Education on: mb9 press call light if needing anything. Client placed on continuous cardiac and pulse oximetry monitoring. NIBP monitoring applied. 10:03 Patient did not have IV access during this emergency room visit. mb9 10:56 Assist provider with I \T\ D: of an abscess on left Set up I\T\D tray. Performed by Leonel Alvarez MD Dressing with Neosporin and 4X4s, tape Patient tolerated well. Administered Medications: 10:04 Drug: Mupirocin Topical Ointment 2 % 1 application Topical once Route: Topical; Site: mb9 affected area; 10:13 Drug: Bupivacaine Infiltration (0.5 %) 5 ml 10 ml Infiltration once Volume: 10 ml; mb9 Route: Infiltration; 10:13 Drug: Lidocaine Infiltration (1 %) 5 ml 5 ml Infiltration once; to bedside Volume: 5 mb9 ml; Route: Infiltration; 10:39 Drug: Silver Nitrate Applicators Topical 1 application Topical once Route: Topical; malini9 Site: affected area; Medication: 10:03 VIS not applicable for this client. [email or web address] Outcome: 09:48 Discharge ordered by . leonidas 10:56 Discharged to home ambulatory, mb9 10:56 Condition: stable 10:56 Discharge instructions given to patient, Instructed on discharge instructions, follow up and referral plans. Demonstrated understanding of instructions, follow-up care, medications, Prescriptions given X 3, 10:57 Patient left the ED. [email or web address] Signatures: Leonel Alvarez MD MD cha Lewis, Lynsay, RN RN ll1 Tanya Soto RN RN mb9 Karley Pringle mg5
[2023-12-28] MEDS ORDERED: SILVER NITRATE 1 APPL TOP ONE (10:37)
[2023-12-28 12:39] VITALS: BP 140/82; TEMP 97.6; O2SAT 98
== END 2023-12-28 10:57 | disposition home or self-care (01) ==
LOC: ER 09:08
PROC: 0H9MXZZ Drainage of Right Foot Skin, External Approach (ICD-10-PCS; principal; 2023-12-28)
DX: L60.0 Ingrowing nail (principal)
CPT/HCPCS: 99284; 10060; J2001